=== PATIENT | male | born 1965 | race Caucasian/White ===

== ENCOUNTER 2021-12-05 13:32 | Emergency (ER) | payer MEDICARE, OTHER ==
[~2021-12-05] VITALS: Ht 177 cm; Wt 105.0 kg
[2021-12-05] MEDS ORDERED: hydrALAZINE (APESOLINE) 20 MG/ML VIAL IV STA (13:45)
--- NOTE | 2021-12-05 13:58 | ED General ---
General Chief Complaint: General Problems/Pain Stated Complaint: ELEV BP Source of Information: Patient History of Present Illness Date Seen by Provider: Dec 05, 2021 Time Seen by Provider: 13:35 Initial Comments 56 yo male presenting with complaint of feeling tired and run down for a long time but since Friday he has been taking his blood pressure. He was told he had elevated blood pressure Friday when he had injections for his spine. He continues to take his blood pressure over the weekend. He has been running 180- 220 systolic and has had a headache along with tightness in his chest. 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 He follows with a provider in [place] at [facility] with Dr. Moscoso and when he contacted them about the blood pressure elevation he was advised to come to local ED since he has had symptoms going on for several days to weeks. Severity: Mild Associated Systoms: Chest Pain (some pain Friday); No Cough, No Diaphoresis, No Fever/Chills; Headaches, Loss of Appetite, Malaise; No Nausea/V omiting, No Rash, No Seizure, No Shortness of Air, No Syncope, No Weakness Allergies and Home Medications Allergies Coded Allergies: No Known Drug Allergies (Unverified , 12/05/21) Patient Home Medication List Home Medication List Reviewed: Yes Lisinopril (Lisinopril) 20 Mg Tablet, 20 MG PO DAILY Prescribed by: MANUELA HOWARD on 12/05/21 1545 Review of Systems Review of Systems Constitutional: No chills, No diaphoresis, No dizziness, No fever; malaise EENTM: no symptoms reported Respiratory: no symptoms reported Cardiovascular: see HPI Gastrointestinal: no symptoms reported Genitourinary: no symptoms reported Musculoskeletal: back pain (chronic) Skin: No rash Psychiatric/Neurological: Headache Hematologic/Lymphatic: Denies Blood Clots Past Emrfbci-Lhdwcv-Kuslgw Hx Patient Social History Tobacco Use?: Yes Tobacco type used: Cigarettes Smoking Status: Current Everyday Smoker Use of E-Cig and/or Vaping dev: No Substance use?: No Alcohol Use?: No Past Medical History Surgery/Hospitalization HX: Hypertension, Diabetes Mellitus, DJD of spine Physical Exam Vital Signs Vital Signs - First Documented 12/05/21 12/05/21 13:46 16:14 Temp 36.7 Pulse 88 Resp 18 B/P (MAP) 198/112 (140) Pulse Ox 96 O2 Delivery Room Air Capillary Refill : Height, Weight, BMI Height: '" Weight: lbs. oz. 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 Norm as Tested Skin: Normal Color, Warm/Dry Progress/Results/Core Measures Suspected Sepsis SIRS Temperature: Pulse: Respiratory Rate: Laboratory Tests 12/05/21 14:10: White Blood Count 12.4H Blood Pressure / Mean: Laboratory Tests 12/05/21 14:10: Creatinine 1.20, INR Comment 0.9, Platelet Count 360, Total Bilirubin 0.3 Results/Orders Lab Results Laboratory Tests Test 12/05/21 14:10 Range/Units White Blood Count 12.4 H 4.3-11.0 10^3/uL Red Blood Count 4.37 4.30-5.52 10^6/uL Hemoglobin 14.0 13.3-17.7 g/dL Hematocrit 43 40-54 % Mean Corpuscular Volume 98 80-99 fL Mean Corpuscular Hemoglobin 32 25-34 pg Mean Corpuscular Hemoglobin Concent 33 32-36 g/dL Red Cell Distribution Width 14.2 10.0-14.5 % Platelet Count 360 130-400 10^3/uL Mean Platelet Volume 9.8 9.0-12.2 fL Immature Granulocyte % (Auto) 1 % Neutrophils (%) (Auto) 70 42-75 % Lymphocytes (%) (Auto) 17 12-44 % Monocytes (%) (Auto) 8 0-12 % Eosinophils (%) (Auto) 4 0-10 % Basophils (%) (Auto) 1 0-10 % Neutrophils # (Auto) 8.7 H 1.8-7.8 10^3/uL Lymphocytes # (Auto) 2.1 1.0-4.0 10^3/uL Monocytes # (Auto) 1.0 0.0-1.0 10^3/uL Eosinophils # (Auto) 0.4 H 0.0-0.3 10^3/uL Basophils # (Auto) 0.1 0.0-0.1 10^3/uL Immature Granulocyte # (Auto) 0.1 0.0-0.1 10^3/uL Prothrombin Time 12.6 12.2-14.7 SEC INR Comment 0.9 0.8-1.4 Activated Partial Thromboplast Time 28 24-35 SEC Urine Color YELLOW Urine Clarity CLEAR Urine pH 6.0 5-9 Urine Specific Bruce 1.015 L 1.016-1.022 Urine Protein NEGATIVE NEGATIVE Urine Glucose (UA) NEGATIVE NEGATIVE Urine Ketones TRACE H NEGATIVE Urine Nitrite NEGATIVE NEGATIVE Urine Bilirubin NEGATIVE NEGATIVE Urine Urobilinogen 0.2 < = 1.0 MG/DL Urine Leukocyte Esterase NEGATIVE NEGATIVE Urine RBC (Auto) NEGATIVE NEGATIVE Urine RBC RARE /HPF Urine WBC RARE /HPF Urine Squamous Epithelial Cells RARE /HPF Urine Crystals NONE /LPF Urine Bacteria NEGATIVE /HPF Urine Casts PRESENT /LPF Urine Hyaline Casts 5-10 H /LPF Urine Mucus SMALL H /LPF Urine Culture Indicated NO Sodium Level 136 135-145 MMOL/L Potassium Level 5.0 3.6-5.0 MMOL/L Chloride Level 98 98-107 MMOL/L Carbon Dioxide Level 24 21-32 MMOL/L Anion Gap 14 5-14 MMOL/L Blood Urea Nitrogen 17 7-18 MG/DL Creatinine 1.20 0.60-1.30 MG/DL Estimat Glomerular Filtration Rate 72 BUN/Creatinine Ratio 14 Glucose Level 135 H 70-105 MG/DL Calcium Level 9.5 8.5-10.1 MG/DL Corrected Calcium 8.5-10.1 MG/DL Magnesium Level 2.4 1.6-2.4 MG/DL Total Bilirubin 0.3 0.1-1.0 MG/DL Aspartate Amino Transf (AST/SGOT) 19 5-34 U/L Alanine Aminotransferase (ALT/SGPT) 12 0-55 U/L Alkaline Phosphatase 79 40-136 U/L Myoglobin 32.6 10.0-92.0 NG/ML Troponin I < 0.30 <0.30 NG/ML Pro-B-Type Natriuretic Peptide 81.7 H <75.0 PG/ML Total Protein 7.8 6.4-8.2 GM/DL Albumin 4.7 H 3.2-4.5 GM/DL Lipase 30 8-78 U/L My Orders Orders - MANUELA HOWARD MD Cbc With Automated Diff (12/05/21 13:45) Magnesium (12/05/21 13:45) Chest 1 View Ap/Pa Only (12/05/21 13:45) Ekg Tracing (12/05/21 13:45) Comprehensive Metabolic Panel (12/05/21 13:45) Myoglobin Serum (12/05/21 13:45) Protime With Inr (12/05/21 13:45) Partial Thromboplastin Time (12/05/21 13:45) O2 (12/05/21 13:45) Monitor-Rhythm Ecg Trace Only (12/05/21 13:45) Ed Iv/Invasive Line Start (12/05/21 13:45) Lipase (12/05/21 13:45) Troponin I Fs (12/05/21 13:45) Probnp Fs (12/05/21 13:45) Ct Head Wo (12/05/21 13:45) Hydralazine Injection (Apresoline Inject (12/05/21 13:45) Ua Culture If Indicated (12/05/21 13:45) Vital Signs/I&O 12/05/21 12/05/21 13:46 16:14 Temp 36.7 Pulse 88 89 Resp 18 16 B/P (MAP) 198/112 (140) 154/80 Pulse Ox 96 O2 Delivery Room Air Room Air Capillary Refill : Progress Note #1: Progress Note check basic labs and ECG to look at heart and kidneys, CT scan of head for headache with elevated blood pressure, cardiac enzymes, UA. Give Hydralazine to see about lowering blood pressure Progress Note #2: Progress Note Labs appear stable other than mild elevation of his white blood cell count. His creatinine is slightly elevated at 1.2. He has no acute significant abnormality on his chest x-ray or CT scan of his head. His electrocardiogram did not show acute ischemia. His troponin was less than 0.3. He had improved blood pressure with the single dose of hydralazine and was feeling better. Call placed to Dr. Arminda Moscoso at [facility] to try and see if there was something specific she would want to do for his blood pressure management at home. She was in rooms seeing patients so I was unable to speak with her but I discussed the case and my plan with her staff. Will fax notes and information to the office for Dr. Moscoso to be able to review and see if she wants to do something different. I advised the patient to increase his Lisinopril to 20 mg a day and he could use the Lisinopril 10 mg pills taking 2 a day instead of picking up the new script. See what Dr. Moscoso wants to do to help manage his pressures. When reviewing results with pt he admits he has had increased pain recently and also has had increased stress. I advised him that both of those certainly could cause an increase in his blood pressures. There is a lot of different factors that could be playing a role but currently his heart test and looking for a stroke or acute organ failure were all negative. ECG Initial ECG Impression Date: Dec 05, 2021 Initial ECG Impression Time: 14:17 Initial ECG Rate: 80 Initial ECG Rhythm: Normal Sinus Initial ECG Comparisson: No Previous ECG Available Comment Normal sinus rhythm with a heart rate of 80 bpm. WI interval 181 ms. Right bundle branch block with a left anterior fascicular block. Lateral Q waves in V5, V6, 1 and aVL. QT interval 390 ms with a QTc interval [address] elevation. No prior tracing available for comparison. Diagnostic Imaging Diagonstic Imaging: CT Plain Films/CT/US/NM/MRI: head Comments [facility] [place] NAME: KAROLINA ADORNO [facility] REC#: [id number] PT STATUS: REG ER : 1965 PHYSICIAN: MANUELA HOWARD MD ADMIT DATE: 12/05/21/ER FS Draft Date of Exam:12/05/21 CT HEAD WO PROCEDURE: CT head without contrast. TECHNIQUE: Multiple contiguous axial images were obtained through the brain without the use of intravenous contrast. Auto Exposure Controls were utilized during the CT exam to meet ALARA standards for radiation dose reduction. INDICATION: Headache and hypertension. No prior head CTs are available for comparison. The ventricles and sulci are within normal limits. No sulcal effacement or midline shift is identified. No acute intra-axial or extra-axial hemorrhage is detected. Cisterns are patent. Visualized paranasal sinuses are clear. IMPRESSION: No acute intracranial process is detected. Dictated on workstation # [id number] Dict: 12/05/21 1428 Trans: 12/05/21 1431 [facility] [id number] Interpreted by: MAXIMINO LOPEZ MD Electronically signed by: Reviewed: Reviewed by Me Diagonstic Imaging: Xray Plain Films/CT/US/NM/MRI: chest Comments [facility] [place] NAME: KAROLINA ADORNO [facility] REC#: [id number] PT STATUS: REG ER : 1965 PHYSICIAN: MANUELA HOWARD MD ADMIT DATE: 12/05/21/ER FS Draft Date of Exam:12/05/21 CHEST 1 VIEW AP/PA ONLY INDICATION: Hypertension Portable AP view of the chest is obtained. There is no previous study for comparison. Overall heart size and pulmonary vascularity are within normal limits. There appear to be nonacute bilateral rib fractures. There is no consolidation, pneumothorax or significant pleural fluid seen. IMPRESSION: Irregular appearance of bilateral ribs indicating old trauma however no acute abnormality is seen. Dictated on workstation # [id number] Dict: 12/05/21 1406 Trans: 12/05/21 1408 [facility] [id number] Interpreted by: BATSHEVA GARCIA MD Electronically signed by: Reviewed: Reviewed by Me Departure Impression Primary Impression: Elevated blood pressure reading with diagnosis of hypertension Disposition: 01 HOME, SELF-CARE Condition: Stable Departure-Patient Inst. Decision time for Depature: 15:30 Referrals: NO,LOCAL PHYSICIAN (PCP/Family) Primary Care Physician Patient Instructions: High Blood Pressure ED, DASH Diet, Heart Healthy Diet Add. Discharge Instructions: Increase your Lisinopril to 20 mg a day for now and check with your doctor at least over the phone to see what they want to do with your blood pressure medicine and control of your pressures being elevated. Dr. Moscoso or her nurse will try to call you and check in about how you are doing and discuss your medicines and treatment options All discharge instructions reviewed with patient and/or family. Voiced underst anding. Scripts Lisinopril (Lisinopril) 20 Mg Tablet 20 MG PO DAILY for Blood Pressure for 30 Days, #30 TAB 0 Refills Prov: MANUELA HOWARD MD 12/05/21 MANUELA HOWARD MD Dec 05, 2021 13:58
--- NOTE | 2021-12-05 14:09 | Diagnostic Imaging Report ---
INDICATION: Hypertension Portable AP view of the chest is obtained. There is no previous study for comparison. Overall heart size and pulmonary vascularity are within normal limits. There appear to be nonacute bilateral rib fractures. There is no consolidation, pneumothorax or significant pleural fluid seen. IMPRESSION: Irregular appearance of bilateral ribs indicating old trauma however no acute abnormality is seen. Dictated by: Dictated on workstation # [id number]
[2021-12-05 14:19] LABS: BASOPHILS # (AUTO) 0.1 10^3/uL (0.0-0.1); BASOPHILS % (AUTO) 1 % (0-10); EOSINOPHILS # (AUTO) 0.4 10^3/uL (0.0-0.3); EOSINOPHILS % (AUTO) 4 % (0-10); HEMATOCRIT 43 % (40-54); LYMPHOCYTES # (AUTO) 2.1 10^3/uL (1.0-4.0); LYMPHOCYTES % (AUTO) 17 % (12-44); MEAN CORPUSCULAR HEMOGLOBIN 32 pg (25-34); MEAN CORPUSCULAR HGB CONC 33 g/dL (32-36); MEAN CORPUSCULAR VOLUME 98 fL (80-99); MEAN PLATELET VOLUME 9.8 fL (9.0-12.2); MONOCYTES % (AUTO) 8 % (0-12); NEUTROPHILS # (AUTO) 8.7 10^3/uL (1.8-7.8); NEUTROPHILS % (AUTO) 70 % (42-75); PLATELET COUNT 360 10^3/uL (130-400); WHITE BLOOD COUNT 12.4 10^3/uL (4.3-11.0)
[2021-12-05 14:20] LABS: BILIRUBIN,URINE NEGATIVE (NEGATIVE); CLARITY,URINE CLEAR; COLOR,URINE YELLOW; GLUCOSE, URINE (UA) NEGATIVE (NEGATIVE); KETONES,URINE TRACE (NEGATIVE); LEUKOCYTE ESTERASE ,URINE NEGATIVE (NEGATIVE); NITRITE,URINE NEGATIVE (NEGATIVE); PROTEIN,URINE NEGATIVE (NEGATIVE)
[2021-12-05 14:31] LABS: BACTERIA,URINE NEGATIVE /HPF; RBC,URINE RARE /HPF; WBC,URINE RARE /HPF
[2021-12-05 14:32] LABS: SQUAMOUS EPITHELIAL CELL,UR RARE /HPF
--- NOTE | 2021-12-05 14:32 | Diagnostic Imaging Report ---
PROCEDURE: CT head without contrast. TECHNIQUE: Multiple contiguous axial images were obtained through the brain without the use of intravenous contrast. Auto Exposure Controls were utilized during the CT exam to meet ALARA standards for radiation dose reduction. INDICATION: Headache and hypertension. No prior head CTs are available for comparison. The ventricles and sulci are within normal limits. No sulcal effacement or midline shift is identified. No acute intra-axial or extra-axial hemorrhage is detected. Cisterns are patent. Visualized paranasal sinuses are clear. IMPRESSION: No acute intracranial process is detected. Dictated by: Dictated on workstation # [id number]
[2021-12-05 14:33] LABS: INR 0.9 (0.8-1.4); PROTHROMBIN TIME PATIENT 12.6 SEC (12.2-14.7)
[2021-12-05 14:42] LABS: BUN/CREATININE RATIO 14; CARBON DIOXIDE 24 MMOL/L (21-32); CHLORIDE 98 MMOL/L (98-107); GFR ESTIMATED 72; GLUCOSE 135 MG/DL (70-105); SODIUM 136 MMOL/L (135-145)
[2021-12-05 14:43] LABS: ALANINE AMINOTRANSFERASE 12 U/L (0-55); ALBUMIN 4.7 GM/DL (3.2-4.5); ALKALINE PHOSPHATASE 79 U/L (40-136); BILIRUBIN,TOTAL 0.3 MG/DL (0.1-1.0); CALCIUM 9.5 MG/DL (8.5-10.1); LIPASE 30 U/L (8-78); MAGNESIUM 2.4 MG/DL (1.6-2.4); TOTAL PROTEIN 7.8 GM/DL (6.4-8.2)
[2021-12-05] MEDS ORDERED: LISI20TA26 PO (15:45)
[2021-12-05 16:14] VITALS: BP 154/80
== END 2021-12-05 16:10 | disposition home or self-care (01) ==
LOC: ER FS 13:34
DX: I10 Essential (primary) hypertension (principal); E66.9 Obesity, unspecified; E11.9 Type 2 diabetes mellitus without complications; F17.210 Nicotine dependence, cigarettes, uncomplicated
CPT/HCPCS: 36415; 70450; 71045; 80053; 81000; 83690; 83735; 83874; 83880; 84484; 85025; 85610; 85730

== ENCOUNTER 2022-06-08 16:01 | Inpatient (IN) | payer MEDICARE ==
[~2022-06-08] VITALS: Ht 177.8 cm; Wt 112.7 kg
[~2022-06-08 16:01] MED LIST: LISI20TA26 PO
[2022-06-08 16:39] LABS: BASOPHILS # (AUTO) 0.1 10^3/uL (0.0-0.1); BASOPHILS % (AUTO) 1 % (0-10); EOSINOPHILS # (AUTO) 0.3 10^3/uL (0.0-0.3); EOSINOPHILS % (AUTO) 2 % (0-10); HEMATOCRIT 35 % (40-54); HEMOGLOBIN 11.5 g/dL (13.3-17.7); LYMPHOCYTES # (AUTO) 2.1 10^3/uL (1.0-4.0); LYMPHOCYTES % (AUTO) 12 % (12-44); MEAN CORPUSCULAR HEMOGLOBIN 32 pg (25-34); MEAN CORPUSCULAR HGB CONC 33 g/dL (32-36); MEAN CORPUSCULAR VOLUME 99 fL (80-99); MEAN PLATELET VOLUME 10.1 fL (9.0-12.2); MONOCYTES # (AUTO) 1.6 10^3/uL (0.0-1.0); MONOCYTES % (AUTO) 10 % (0-12); NEUTROPHILS # (AUTO) 12.9 10^3/uL (1.8-7.8); NEUTROPHILS % (AUTO) 76 % (42-75); PLATELET COUNT 289 10^3/uL (130-400)
[2022-06-08 16:44] LABS: ALBUMIN 4.1 GM/DL (3.2-4.5); POTASSIUM 4.7 MMOL/L (3.6-5.0); PROTHROMBIN TIME PATIENT 13.3 SEC (12.2-14.7)
[2022-06-08 16:45] LABS: CALCIUM 9.3 MG/DL (8.5-10.1)
[2022-06-08] MEDS ORDERED: fentaNYL INJ 100 MCG/2 ML AMP IVP ONE (16:45)
[2022-06-08 16:47] LABS: TOTAL PROTEIN 7.3 GM/DL (6.4-8.2)
[2022-06-08 16:48] LABS: BILIRUBIN,TOTAL 0.7 MG/DL (0.1-1.0)
[2022-06-08 16:50] LABS: CREATININE SERUM 1.8 MG/DL (0.60-1.30)
[2022-06-08 16:54] LABS: BAND NEUTROPHILS 0 %; BASOPHILS % (MANUAL) 0 %; EOSINOPHILS % (MANUAL) 3 %; LYMPHOCYTES % (MANUAL) 17 %; MONOCYTES % (MANUAL) 6 %; NEUTROPHILS % (MANUAL) 74 %; RBC MORPH NORMAL
--- NOTE | 2022-06-08 16:59 | ED General ---
General Chief Complaint: General Problems/Pain Stated Complaint: LEGS SWOLLEN/BALANCE IS OFF/SPEECH SLURRED Nursing Triage Note: PT BROUGHT TO ED BY ADULT DAUGHTER FOR WEAKNESS AND SLURRED SPEACH THAT STARTED TODAY. PT HAS BEEN NOTICING MUSCLE SORENESS FOR THE LAST THREE DAY BUT HAS GOTTEN WORSE OVERTIME. DAUGHTER STATES PT HAD TIA ABOUT THREE YEARS AGO. PT REPORT HAVING HAD SOME CP YESTERDAY ON AND OFF. NO CURRENT CP AT THIS TIME. PT BROUGHT TO ROOM 02 VIA WC. PT'S DAUGHTER AT BEDSIDE. PT ALERT AND ORIENTED X'S 4. Source of Information: Patient, Family, Old Records Exam Limitations: No Limitations History of Present Illness Date Seen by Provider: Jun 08, 2022 Time Seen by Provider: 16:10 Initial Comments This 57-year-old gentleman presents to the emergency room with at least 3 days of diffuse severe myalgia and polyarthralgia, weakness, fever, and anasarca. He had something similar to this years ago when he had TIAs. He does not know of any specific diagnosis that was assigned to the condition but knows he spent 4 days in the hospital. He was admitted at [facility] for the prior episode. He does not have a local provider here as he has recently moved to the area from [place], [place]. Some additional associated symptoms are nausea, vomiting, diarrhea, mild cough, and mild shortness of air. Speech has been a little sluggish as well according to patient and family but sluggish speech is not appreciated by this observer. Patient is alert, oriented, and articulate. His myalgia and arthralgia is so intense that he requires a 3 person assist to transfer to the bed from wheelchair. Patient has a minimal history. 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 There is a subtle right-sided facial droop that is overcome when he smiles. Time of onset is unknown. He has no other focal deficits. He is presently febrile and reports a temperature of 100.6 earlier in the day. He is not aware of any tick bites. He denies any high risk sexual activity or contacts. He denies any IV drug use or use of dirty needles for tattoos or other purposes. He denies headache and there is no rash Allergies and Home Medications Allergies Coded Allergies: meperidine (Verified Allergy, Unknown, TACHYCARDIA, 06/08/22) Patient Home Medication List Home Medication List Reviewed: Yes Amlodipine Besylate (Amlodipine Besylate) 5 Mg Tablet, 5 MG PO DAILY, (Reported) Entered as Reported by: Concha Gillespie on 06/08/222313 Last Action: Edited Bupropion HCl (Bupropion Xl) 300 Mg Tab.er.24h, 300 MG PO DAILY, (Reported) Entered as Reported by: Concha Gillespie on 06/08/222313 Last Action: Edited Bupropion HCl (Bupropion Xl) 150 Mg Tab.er.24h, 150 MG PO DAILY, (Reported) Entered as Reported by: Concha Gillespie on 06/08/222313 Last Action: Edited Celecoxib (Celecoxib) 100 Mg Capsule, 100 MG PO DAILY, (Reported) Entered as Reported by: Concha Gillespie on 06/08/222313 Last Action: Edited Duloxetine HCl (Duloxetine HCl) 60 Mg Capsule.dr, 60 MG PO DAILY, (Reported) Entered as Reported by: Concha Gillespie on 06/08/222313 Last Action: Edited Gabapentin (Neurontin) 300 Mg Capsule, 1,200 MG MT TID, (Reported) Entered as Reported by: Concha Gillespie on 06/08/222313 Last Action: New Order Lisinopril (Lisinopril) 20 Mg Tablet, 20 MG PO DAILY Prescribed by: MANUELA HOWARD on 12/05/21 1545 Lisinopril (Lisinopril) 40 Mg Tablet, (Reported) Entered as Reported by: Concha Gillespie on 06/08/222313 Last Action: New Order Lisinopril (Lisinopril) 10 Mg Tablet, (Reported) Entered as Reported by: Concha Gillespie on 06/08/222313 Last Action: New Order Metformin HCl (Metformin HCl) 500 Mg Tablet, 500 MG PO BID, (Reported) Entered as Reported by: Concha Gillespie on 06/08/222313 Last Action: Edited Omeprazole Magnesium (Prilosec Otc) 20 Mg Tablet.dr, 20 MG PO DAILY, (Reported) Entered as Reported by: YECENIA VILLALTA on 8813 Last Action: New Order Oxycodone HCl (Oxycodone HCl) 15 Mg Tablet, (Reported) Entered as Reported by: Concha Gillespie on 06/08/222309 Last Action: New Order Quetiapine Fumarate (Quetiapine Fumarate) 25 Mg Tablet, 25 MG PO DAILY, (Reported) Entered as Reported by: Concha Gillespie on 06/08/222313 Last Action: Edited Timolol Maleate (Timoptic) 0.5 % Drops, 2 DROPS BID, (Reported) Entered as Reported by: Concha Gillespie on 06/08/222313 Last Action: Edited Tizanidine HCl (Tizanidine HCl) 2 Mg Tablet, 2 MG PO QID PRN for MUSCLE SPASMS, (Reported) Entered as Reported by: Concha Gillespie on 06/08/222313 Last Action: Edited Review of Systems Review of Systems Constitutional: see HPI EENTM: see HPI Respiratory: see HPI Cardiovascular: no symptoms reported Gastrointestinal: see HPI Genitourinary: no symptoms reported Musculoskeletal: see HPI Skin: no symptoms reported Psychiatric/Neurological: See HPI, Weakness Hematologic/Lymphatic: No Symptoms Reported Past Qhzjshb-Dwhwtd-Nuffxl Hx Patient Social History Tobacco Use?: No Use of E-Cig and/or Vaping dev: Yes E-Cig or Vaping type used: Nicotine Use of E-Cig and/or Vaping Haroldo: Current Everyday User Substance use?: No Alcohol Use?: No Alcohol type: Beer Alcohol Frequency: Rarely Pt feels they are or have been: No Immunizations Up To Date First/Initial COVID19 Vaccinat: 2020 Second COVID19 Vaccination Leonardo: 2020 COVID19 Vaccine Bit Gatherer: Hilosoft Past Medical History Surgery/Hospitalization HX: Hypertension, Diabetes Mellitus, DJD of spine SURGERY; 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 oz. 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 Slight right sided facial droop) Skin: normal color, warm/dry Focused Exam Lactate Level 06/08/22 16:20: Lactic Acid Level 1.18 Lactic Acid Level Progress/Results/Core Measures Suspected Sepsis SIRS Temperature: Pulse: 98 Respiratory Rate: 14 Laboratory Tests 06/08/22 16:20: White Blood Count 17.0H 06/09/22 03:42: White Blood Count 10.7 Blood Pressure 150 /77 Mean: 101 06/08/22 16:20: Lactic Acid Level 1.18 Laboratory Tests 06/08/22 16:20: Creatinine 1.80H, INR Comment 1.0, Platelet Count 289, Total Bilirubin 0.7 06/09/22 03:42: Creatinine 1.61H, Platelet Count 234, Total Bilirubin 0.5 Results/Orders Lab Results Laboratory Tests Test 06/08/22 16:20 06/08/22 17:49 06/08/22 18:20 06/08/22 19:17 Range/Units White Blood Count 17.0 H 4.3-11.0 10^3/uL Red Blood Count 3.56 L 4.30-5.52 10^6/uL Hemoglobin 11.5 L 13.3-17.7 g/dL Hematocrit 35 L 40-54 % Mean Corpuscular Volume 99 80-99 fL Mean Corpuscular Hemoglobin 32 25-34 pg Mean Corpuscular Hemoglobin Concent 33 32-36 g/dL Red Cell Distribution Width 14.5 10.0-14.5 % Platelet Count 289 130-400 10^3/uL Mean Platelet Volume 10.1 9.0-12.2 fL Immature Granulocyte % (Auto) 0 % Neutrophils (%) (Auto) 76 H 42-75 % Lymphocytes (%) (Auto) 12 12-44 % Monocytes (%) (Auto) 10 0-12 % Eosinophils (%) (Auto) 2 0-10 % Basophils (%) (Auto) 1 0-10 % Neutrophils # (Auto) 12.9 H 1.8-7.8 10^3/uL Lymphocytes # (Auto) 2.1 1.0-4.0 10^3/uL Monocytes # (Auto) 1.6 H 0.0-1.0 10^3/uL Eosinophils # (Auto) 0.3 0.0-0.3 10^3/uL Basophils # (Auto) 0.1 0.0-0.1 10^3/uL Immature Granulocyte # (Auto) 0.1 0.0-0.1 10^3/uL Neutrophils % (Manual) 74 % Lymphocytes % (Manual) 17 % Monocytes % (Manual) 6 % Eosinophils % (Manual) 3 % Basophils % (Manual) 0 % Band Neutrophils 0 % Blood Morphology Comment NORMAL Prothrombin Time 13.3 12.2-14.7 SEC INR Comment 1.0 0.8-1.4 Activated Partial Thromboplast Time 30 24-35 SEC Sodium Level 135 135-145 MMOL/L Potassium Level 4.7 3.6-5.0 MMOL/L Chloride Level 101 98-107 MMOL/L Carbon Dioxide Level 21 21-32 MMOL/L Anion Gap 13 5-14 MMOL/L Blood Urea Nitrogen 21 H 7-18 MG/DL Creatinine 1.80 H 0.60-1.30 MG/DL Estimat Glomerular Filtration Rate 44 BUN/Creatinine Ratio 12 Glucose Level 183 H 70-105 MG/DL Lactic Acid Level 1.18 0.50-2.00 MMOL/L Calcium Level 9.3 8.5-10.1 MG/DL Corrected Calcium 9.2 8.5-10.1 MG/DL Magnesium Level 2.0 1.6-2.4 MG/DL Total Bilirubin 0.7 0.1-1.0 MG/DL Aspartate Amino Transf (AST/SGOT) 14 5-34 U/L Alanine Aminotransferase (ALT/SGPT) 15 0-55 U/L Alkaline Phosphatase 62 40-136 U/L Total Creatine Kinase 260 H 30-200 U/L Myoglobin 200.7 H 10.0-92.0 NG/ML Troponin I 0.031 H 0.038 H <0.028 NG/ML C-Reactive Protein High Sensitivity 9.65 H 0.00-0.50 MG/DL B-Type Natriuretic Peptide 129.1 H <100.0 PG/ML Total Protein 7.3 6.4-8.2 GM/DL Albumin 4.1 3.2-4.5 GM/DL Thyroid Stimulating Hormone (TSH) 0.45 0.35-4.94 UIU/ML Free Thyroxine 0.93 0.70-1.48 NG/DL Influenza Type A (RT-PCR) Not Detected Not Detecte Influenza Type B (RT-PCR) Not Detected Not Detecte SARS-CoV-2 RNA (RT-PCR) Not Detected Not Detecte Urine Color YELLOW Urine Clarity CLEAR Urine pH 5.5 5-9 Urine Specific [place] 1.010 L 1.016-1.022 Urine Protein NEGATIVE NEGATIVE Urine Glucose (UA) NEGATIVE NEGATIVE Urine Ketones NEGATIVE NEGATIVE Urine Nitrite NEGATIVE NEGATIVE Urine Bilirubin NEGATIVE NEGATIVE Urine Urobilinogen 0.2 < = 1.0 MG/DL Urine Leukocyte Esterase NEGATIVE NEGATIVE Urine RBC (Auto) TRACE-I H NEGATIVE Urine RBC RARE /HPF Urine WBC NONE /HPF Urine Squamous Epithelial Cells RARE /HPF Urine Crystals NONE /LPF Urine Bacteria NEGATIVE /HPF Urine Casts NONE /LPF Urine Mucus NEGATIVE /LPF Urine Culture Indicated NO Erythrocyte Sedimentation Rate 38 H 0-30 MM/HR Test 06/08/22 19:57 06/09/22 03:42 Range/Units Uric Acid 8.4 H 2.6-7.2 MG/DL Procalcitonin 0.25 H 0.25 H <0.10 NG/ML White Blood Count 10.7 4.3-11.0 10^3/uL Red Blood Count 3.31 L 4.30-5.52 10^6/uL Hemoglobin 10.7 L 13.3-17.7 g/dL Hematocrit 34 L 40-54 % Mean Corpuscular Volume 101 H 80-99 fL Mean Corpuscular Hemoglobin 32 25-34 pg Mean Corpuscular Hemoglobin Concent 32 32-36 g/dL Red Cell Distribution Width 14.7 H 10.0-14.5 % Platelet Count 234 130-400 10^3/uL Mean Platelet Volume 10.1 9.0-12.2 fL Immature Granulocyte % (Auto) 1 % Neutrophils (%) (Auto) 62 42-75 % Lymphocytes (%) (Auto) 18 12-44 % Monocytes (%) (Auto) 15 H 0-12 % Eosinophils (%) (Auto) 4 0-10 % Basophils (%) (Auto) 1 0-10 % Neutrophils # (Auto) 6.6 1.8-7.8 10^3/uL Lymphocytes # (Auto) 2.0 1.0-4.0 10^3/uL Monocytes # (Auto) 1.6 H 0.0-1.0 10^3/uL Eosinophils # (Auto) 0.4 H 0.0-0.3 10^3/uL Basophils # (Auto) 0.1 0.0-0.1 10^3/uL Immature Granulocyte # (Auto) 0.1 0.0-0.1 10^3/uL Sodium Level 140 135-145 MMOL/L Potassium Level 4.3 3.6-5.0 MMOL/L Chloride Level 105 98-107 MMOL/L Carbon Dioxide Level 24 21-32 MMOL/L Anion Gap 11 5-14 MMOL/L Blood Urea Nitrogen 21 H 7-18 MG/DL Creatinine 1.61 H 0.60-1.30 MG/DL Estimat Glomerular Filtration Rate 50 BUN/Creatinine Ratio 13 Glucose Level 135 H 70-105 MG/DL Calcium Level 9.0 8.5-10.1 MG/DL Corrected Calcium 9.2 8.5-10.1 MG/DL Total Bilirubin 0.5 0.1-1.0 MG/DL Aspartate Amino Transf (AST/SGOT) 15 5-34 U/L Alanine Aminotransferase (ALT/SGPT) 16 0-55 U/L Alkaline Phosphatase 61 40-136 U/L Total Creatine Kinase 214 H 30-200 U/L Troponin I < 0.028 <0.028 NG/ML C-Reactive Protein High Sensitivity 15.51 H 0.00-0.50 MG/DL B-Type Natriuretic Peptide 127.7 H <100.0 PG/ML Total Protein 6.8 6.4-8.2 GM/DL Albumin 3.7 3.2-4.5 GM/DL Triglycerides Level 57 <150 MG/DL Cholesterol Level 134 < 200 MG/DL LDL Cholesterol Direct 34 1-129 MG/DL VLDL Cholesterol 11 5-40 MG/DL HDL Cholesterol 84 H 40-60 MG/DL Micro Results Microbiology 06/08/22 Blood Culture - Preliminary, Resulted No growth 06/08/22 Blood Culture - Preliminary, Resulted No growth My Orders Orders - OMID BROOKS MD Cbc With Automated Diff (06/08/22:25) Comprehensive Metabolic Panel (06/08/22:) Blood Culture (06/08/22:) Urinalysis (06/08/22) Urine Culture (06/08/22) Protime With Inr (06/08/22:) Partial Thromboplastin Time (06/08/22:) Chest 1 View, Ap/Pa Only (06/08/22:) Ed Iv/Invasive Line Start (06/08/22:25) Ed Iv/Invasive Line Start (06/08/22 16:25) Vital Signs Adult Sepsis Patie Q15M (06/08/22 16:25) O2 (06/08/22:25) Remove Rings In Anticipation O (06/08/22:25) Lactic Acid Analyzer (06/08/22:25) Bnp [place] (06/08/22 16:25) Creatine Kinase (06/08/22:) Hs C Reactive Protein (06/08/22:25) Magnesium (06/08/22 16:25) Ekg Tracing (06/08/22:25) Myoglobin Serum (06/08/22 16:25) Monitor-Rhythm Ecg Trace Only (06/08/22:) Troponin I [place] (06/08/22:25) Covid 19 Inhouse Test (06/08/22 16:25) Influenza A And B By Pcr (06/08/22 16:25) Thyroid Stimulating Hormone (06/08/22 16:25) Free T4 (Free Thyroxine) (06/08/22 16:25) Fentanyl Inj (Sublimaze Injection) (06/08/22 16:45) Ct Head Wo-R/O Stroke (06/08/22 16:34) Manual Differential (06/08/22 16:20) Troponin I [place] (06/08/22 18:20) Erythrocyte Sedimentation Rate (06/08/22 18:02) Tick Panel With Lyme Eia (06/08/22 18:13) West Nile Virus Igg & M (06/08/22 18:13) Acetaminophen Tablet (Tylenol Tablet) (06/08/22 18:30) Morphine Injection (Morphine Injection (06/08/22 19:56) Ceftriaxone 1 Gm Pre-Mix (Rocephin 1 Gm (06/08/22 20:18) Uric Acid (06/08/22 20:22) Ra Factor (Rheumatoid Factor) (06/08/22 20:22) Anti Nuclear Antibody Screen (06/08/22 20:22) Piperacillin Sodium/Tazobactam (Zosyn Vi (06/08/22 20:30) Procalcitonin (Pct) (06/08/22 20:31) Doxycycline Injection (Vibramycin Inject (06/08/22 20:45) Lipid Panel (06/09/22 06:00) Medications Given in ED Vital Signs/I&O 06/09/22 06/09/22 06/09/22 06/09/22 13:41 16:00 16:22 16:39 Temp 36.8 36.7 Pulse 97 86 84 87 Resp 65 12 B/P (MAP) 145/69 (94) 168/80 (109) 171/81 (111) 167/87 (113) Pulse Ox 99 96 96 94 O2 Delivery Room Air Room Air Room Air 06/09/22 06/09/22 16:53 16:56 Temp 36.7 Pulse 87 Resp 12 B/P (MAP) 154/89 154/89 (110) Pulse Ox 94 O2 Delivery Room Air Capillary Refill : Less Than 3 Seconds Blood Pressure Mean: 101 Progress Note : Progress Note Cardiac and septic work-ups were pursued. Patient denied any chest pain that was worse than his general myalgia and arthralgia. Troponin was minimally elevated. There was a slight increase on repeat. It is unclear if there is any significance of this minimal elevation in context of his renal failure. Although he has anasarca, his BNP is low. Due to the renal insufficiency we will run some slow IV fluids through the night. Source of infection is unknown. He is being empirically treated with Zosyn and doxycycline. Evaluation for autoimmune disorders is also being pursued with BARBI, uric acid, rheumatoid panel, etc. Echocardiogram will be obtained in the morning. Pain will be controlled with opioids. Labs will be repeated in the morning. I discussed CODE STATUS with the patient and he elects full code. ECG Initial ECG Impression Date: Jun 08, 2022 Initial ECG Impression Time: 16:38 Initial ECG Rate: 94 Initial ECG Rhythm: Normal Sinus Comment Sinus rhythm with no ST elevation or depression. Right bundle branch block and left axis deviation by automated read. Diagnostic Imaging Diagonstic Imaging: Xray Plain Films/CT/US/NM/MRI: chest Comments Chest x-ray viewed by me and report reviewed. See report below: NAME: KAROLINA ADORNO MED REC#: [id number] PT STATUS: REG ER : 1965 PHYSICIAN: OMID BROOKS MD ADMIT DATE: 06/08/22/ER Signed Date of Exam:06/08/22 CHEST 1 VIEW, AP/PA ONLY INDICATION: Dyspnea. EXAMINATION: AP view of the chest was obtained. FINDINGS: Since 12/05/2021 overall heart size and pulmonary vascularity remain within normal limits. Old right rib fractures are present. There is no evidence of pneumothorax or significant pleural fluid. IMPRESSION: No acute abnormality is detected. Dictated by: Dictated on workstation # [id number] Dict: 06/08/221704 Trans: 06/08/222020 [facility] [id number] Interpreted by: BATSHEVA GARCIA MD Electronically signed by: BATSHEVA GARCIA MD 06/08/222020 Diagonstic Imaging: CT Plain Films/CT/US/NM/MRI: head Comments NAME: KAROLINA ADORNO MED REC#: [id number] PT STATUS: REG ER : 1965 PHYSICIAN: OMID BROOKS MD ADMIT DATE: 06/08/22/ER Signed Date of Exam:06/08/22 CT HEAD WO-R/O STROKE PROCEDURE: CT head w/o r/o stroke. TECHNIQUE: Multiple contiguous axial images were obtained through the brain without the use of intravenous contrast. Auto Exposure Controls were utilized during the CT exam to meet ALARA standards for radiation dose reduction. INDICATION: Neurologic deficit. COMPARISON: 12/05/2021. CT HEAD: CT images of the head were obtained. FINDINGS: Ventricles and sulci are within normal limits for size. There is no intracranial hemorrhage identified. There is no abnormal mass effect or shift of midline structures. IMPRESSION: Unremarkable CT of the head. Dictated by: Dictated on workstation # [id number] Dict: 06/08/224 Trans: 06/08/222021 [facility] [id number] Interpreted by: BATSHEVA GARCIA MD Electronically signed by: BATSHEVA GARCIA MD 06/08/222021 Reviewed: Reviewed by Me Departure Communication (Admissions) Time/Spoke to Admitting Phy: 20:20 Dr. Don Time/Spoke to Consulting Phy: 20:25 Dr. Higgins Impression Primary Impression: Fever of unknown origin Additional Impressions: Polyarthralgia Anasarca Elevated troponin Renal insufficiency Disposition: ADMITTED INPATIENT Condition: Stable Admissions Decision to Admit Reason: Admit from ER (General) Decision to Admit/Date: Jun 08, 2022 Time/Decision to Admit Time: 20:20 Departure-Patient Inst. Referrals: NO,LOCAL PHYSICIAN (PCP/Family) Primary Care Physician OMID BROOKS MD Jun 08, 2022 16:59
--- NOTE | 2022-06-08 17:05 | Diagnostic Imaging Report ---
PROCEDURE: CT head w/o r/o stroke. TECHNIQUE: Multiple contiguous axial images were obtained through the brain without the use of intravenous contrast. Auto Exposure Controls were utilized during the CT exam to meet ALARA standards for radiation dose reduction. INDICATION: Neurologic deficit. COMPARISON: 12/05/2021. CT HEAD: CT images of the head were obtained. FINDINGS: Ventricles and sulci are within normal limits for size. There is no intracranial hemorrhage identified. There is no abnormal mass effect or shift of midline structures. IMPRESSION: Unremarkable CT of the head. Dictated by: Dictated on workstation # [id number]
--- NOTE | 2022-06-08 17:08 | Diagnostic Imaging Report ---
INDICATION: Dyspnea. EXAMINATION: AP view of the chest was obtained. FINDINGS: Since 12/05/2021 overall heart size and pulmonary vascularity remain within normal limits. Old right rib fractures are present. There is no evidence of pneumothorax or significant pleural fluid. IMPRESSION: No acute abnormality is detected. Dictated by: Dictated on workstation # [id number]
[2022-06-08 17:15] LABS: FREE T4 (FREE THYROXINE) 0.93 NG/DL (0.70-1.48)
[2022-06-08 17:54] LABS: BILIRUBIN,URINE NEGATIVE (NEGATIVE); CLARITY,URINE CLEAR; COLOR,URINE YELLOW; GLUCOSE, URINE (UA) NEGATIVE (NEGATIVE); KETONES,URINE NEGATIVE (NEGATIVE); LEUKOCYTE ESTERASE ,URINE NEGATIVE (NEGATIVE); NITRITE,URINE NEGATIVE (NEGATIVE); PH,URINE 5.5 (5-9); PROTEIN,URINE NEGATIVE (NEGATIVE)
[2022-06-08 18:02] LABS: BACTERIA,URINE NEGATIVE /HPF; RBC,URINE RARE /HPF; SQUAMOUS EPITHELIAL CELL,UR RARE /HPF
[2022-06-08] MEDS ORDERED: ACETAMINOPHEN 500 MG TAB (TYLENOL) PO ONE (18:30)
[2022-06-08] MEDS ORDERED: morphine INJ 10 MG/ML 1ML (SYR OR VIAL) IVP STA (19:56)
[2022-06-08] MEDS ORDERED: cefTRIAXone 1 GM PRE-MIX 50 ML IV STA (20:18)
[2022-06-08] MEDS ORDERED: PIPERACILLIN SODIUM/TAZOBACTAM 4.5 GM in NS (IVPB) 100 ML IV ONE (20:30)
[2022-06-08] MEDS ORDERED: DOXYCYCLINE INJECTION 100 MG in NS (IVPB) 100 ML IV ONE (20:45)
[2022-06-08] MEDS ORDERED: NS IV 1000 ML 1,000 ML ONE (21:46)
[2022-06-08 22:00] VITALS: BP 109/61
[2022-06-08] MEDS ORDERED: ONDANSETRON 4 MG/2 ML (SDV) Z0FRAN IV PRN (22:00)
[2022-06-08] MEDS: NS IV 1000 ML 1,000 ML IV SCH (22:14)
[2022-06-08] MEDS ORDERED: OXYC-525 (23:10)
[2022-06-08] MEDS ORDERED: BUPR150T24 PO (23:14)
[2022-06-08] MEDS ORDERED: [UNRECOGNIZED DRUG - CODE] (23:14)
[2022-06-08] MEDS ORDERED: LISI10TA25 (23:14)
[2022-06-08] MEDS ORDERED: CELE100C84 PO (23:14)
[2022-06-08] MEDS ORDERED: GABA300C MT (23:14)
[2022-06-08] MEDS ORDERED: QUET25TA35 PO (23:14)
[2022-06-08] MEDS ORDERED: TIZA-169 PO (23:14)
[2022-06-08] MEDS ORDERED: BUPR300T98 PO (23:14)
[2022-06-08] MEDS ORDERED: AMLO-250 PO (23:14)
[2022-06-08] MEDS ORDERED: LISI40TA9 (23:14)
[2022-06-08] MEDS ORDERED: METF-397 PO (23:14)
[2022-06-08] MEDS ORDERED: DULO60CA59 PO (23:14)
[2022-06-08] MEDS: morphine INJ 10 MG/ML 1ML (SYR OR VIAL) IV PRN (23:28)
[2022-06-08] MEDS: ACETAMINOPHEN 500 MG TAB (TYLENOL) PO SCH (23:29)
[2022-06-09] VITALS (8 sets, daily range): BP systolic 133–171; BP diastolic 61–89
[2022-06-09] MEDS: PIPERACILLIN SODIUM/TAZOBACTAM 4.5 GM in NS (IVPB) 100 ML IV SCH ×2 (03:16→12:38)
[2022-06-09 04:50] LABS: BASOPHILS # (AUTO) 0.1 10^3/uL (0.0-0.1); BASOPHILS % (AUTO) 1 % (0-10); EOSINOPHILS # (AUTO) 0.4 10^3/uL (0.0-0.3); EOSINOPHILS % (AUTO) 4 % (0-10); HEMATOCRIT 34 % (40-54); HEMOGLOBIN 10.7 g/dL (13.3-17.7); LYMPHOCYTES % (AUTO) 18 % (12-44); MEAN CORPUSCULAR HEMOGLOBIN 32 pg (25-34); MEAN CORPUSCULAR HGB CONC 32 g/dL (32-36); MEAN CORPUSCULAR VOLUME 101 fL (80-99); MEAN PLATELET VOLUME 10.1 fL (9.0-12.2); MONOCYTES # (AUTO) 1.6 10^3/uL (0.0-1.0); MONOCYTES % (AUTO) 15 % (0-12); NEUTROPHILS # (AUTO) 6.6 10^3/uL (1.8-7.8); NEUTROPHILS % (AUTO) 62 % (42-75); PLATELET COUNT 234 10^3/uL (130-400); WHITE BLOOD COUNT 10.7 10^3/uL (4.3-11.0)
[2022-06-09 05:21] LABS: ALANINE AMINOTRANSFERASE 16 U/L (0-55); ALBUMIN 3.7 GM/DL (3.2-4.5); ALKALINE PHOSPHATASE 61 U/L (40-136); BILIRUBIN,TOTAL 0.5 MG/DL (0.1-1.0); BUN/CREATININE RATIO 13; CARBON DIOXIDE 24 MMOL/L (21-32); CHLORIDE 105 MMOL/L (98-107); CHOLESTEROL 134 MG/DL (< 200); CREATINE KINASE 214 U/L (30-200); CREATININE SERUM 1.61 MG/DL (0.60-1.30); GFR ESTIMATED 50; GLUCOSE 135 MG/DL (70-105); HDL CHOLESTEROL 84 MG/DL (40-60); POTASSIUM 4.3 MMOL/L (3.6-5.0); SODIUM 140 MMOL/L (135-145); TOTAL PROTEIN 6.8 GM/DL (6.4-8.2); TRIGLYCERIDES 57 MG/DL (<150); VLDL CHOLESTEROL 11 MG/DL (5-40)
[2022-06-09] MEDS: morphine INJ 10 MG/ML 1ML (SYR OR VIAL) IV PRN (05:47)
[2022-06-09] MEDS: ACETAMINOPHEN 500 MG TAB (TYLENOL) PO SCH ×2 (05:47→12:04)
--- NOTE | 2022-06-09 07:37 | Diagnostic Imaging Report ---
EXAMINATION: Chest 1 view HISTORY: Fever COMPARISON: 06/08/2022 FINDINGS: The lungs are clear without edema or pneumonia. No pleural effusion or pneumothorax. Heart size is normal. There are old right-sided rib fractures. IMPRESSION: 1. Clear lungs. Dictated by: Dictated on workstation # [id number]
[2022-06-09] MEDS ORDERED: OMEP20TA33 PO (08:14)
[2022-06-09] MEDS ORDERED: DOXYCYCLINE INJECTION 100 MG in NS (IVPB) 100 ML IV SCH (09:00)
[2022-06-09] MEDS ORDERED: fentaNYL PATCH 50 MCG (DURAGESIC) TD SCH (09:00)
--- NOTE | 2022-06-09 09:13 | Consultation-Cardiology ---
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 Questionable history of TIA in the past. Started about 2 days ago having generalized weakness, muscle wasting, fever. Loss of appetite. Came into the emergency room and he is unable to stand on his own. Become extremely weak. Denied any chest pain but all his body hurt. All the muscle in his body are achy. No shortness of breath. No palpitation, syncope or near syncopal episode, does not recall having any tick bite. Home Medications & Allergies Allergies: Coded Allergies: meperidine (Verified Allergy, Unknown, TACHYCARDIA, 06/08/22) Home Medication List Reviewed: Yes IGO-Nkdkov-Dncwdm Hx Patient Social History Employed/Student: unemployed Smoking Status: Former Smoker Have you traveled recently?: No Alcohol Use?: Yes Past Medical History Discussed below Family Medical History Family Medical Hx Noncontributory. Review of Systems-General Review of Systems Constitutional: see HPI, fever, malaise, weakness EENTM: see HPI Respiratory: see HPI; No cough, No dyspnea on exertion, No hemoptysis, No orthopnea, No phlegm, No short of breath, No stridor, No wheezing, No other Cardiovascular: see HPI; No chest pain, No edema, No Hx of Intervention, No palpitations, No syncope, No vascular heart diseas, No other Gastrointestinal: see HPI, loss of appetite, nausea Genitourinary: no symptoms reported Musculoskeletal: see HPI, back pain, joint pain, muscle pain, muscle stiffness, muscle weakness Skin: no symptoms reported, see HPI Psychiatric/Neurological: See HPI, Weakness Reviewed Test Results Reviewed Test Results Lab Laboratory Tests Test 06/08/22 16:20 06/08/22 17:49 06/08/22 18:20 06/08/22 19:17 Range/Units White Blood Count 17.0 H 4.3-11.0 10^3/uL Red Blood Count 3.56 L 4.30-5.52 10^6/uL Hemoglobin 11.5 L 13.3-17.7 g/dL Hematocrit 35 L 40-54 % Mean Corpuscular Volume 99 80-99 fL Mean Corpuscular Hemoglobin 32 25-34 pg Mean Corpuscular Hemoglobin Concent 33 32-36 g/dL Red Cell Distribution Width 14.5 10.0-14.5 % Platelet Count 289 130-400 10^3/uL Mean Platelet Volume 10.1 9.0-12.2 fL Immature Granulocyte % (Auto) 0 % Neutrophils (%) (Auto) 76 H 42-75 % Lymphocytes (%) (Auto) 12 12-44 % Monocytes (%) (Auto) 10 0-12 % Eosinophils (%) (Auto) 2 0-10 % Basophils (%) (Auto) 1 0-10 % Neutrophils # (Auto) 12.9 H 1.8-7.8 10^3/uL Lymphocytes # (Auto) 2.1 1.0-4.0 10^3/uL Monocytes # (Auto) 1.6 H 0.0-1.0 10^3/uL Eosinophils # (Auto) 0.3 0.0-0.3 10^3/uL Basophils # (Auto) 0.1 0.0-0.1 10^3/uL Immature Granulocyte # (Auto) 0.1 0.0-0.1 10^3/uL Neutrophils % (Manual) 74 % Lymphocytes % (Manual) 17 % Monocytes % (Manual) 6 % Eosinophils % (Manual) 3 % Basophils % (Manual) 0 % Band Neutrophils 0 % Blood Morphology Comment NORMAL Prothrombin Time 13.3 12.2-14.7 SEC INR Comment 1.0 0.8-1.4 Activated Partial Thromboplast Time 30 24-35 SEC Sodium Level 135 135-145 MMOL/L Potassium Level 4.7 3.6-5.0 MMOL/L Chloride Level 101 98-107 MMOL/L Carbon Dioxide Level 21 21-32 MMOL/L Anion Gap 13 5-14 MMOL/L Blood Urea Nitrogen 21 H 7-18 MG/DL Creatinine 1.80 H 0.60-1.30 MG/DL Estimat Glomerular Filtration Rate 44 BUN/Creatinine Ratio 12 Glucose Level 183 H 70-105 MG/DL Lactic Acid Level 1.18 0.50-2.00 MMOL/L Calcium Level 9.3 8.5-10.1 MG/DL Corrected Calcium 9.2 8.5-10.1 MG/DL Magnesium Level 2.0 1.6-2.4 MG/DL Total Bilirubin 0.7 0.1-1.0 MG/DL Aspartate Amino Transf (AST/SGOT) 14 5-34 U/L Alanine Aminotransferase (ALT/SGPT) 15 0-55 U/L Alkaline Phosphatase 62 40-136 U/L Total Creatine Kinase 260 H 30-200 U/L Myoglobin 200.7 H 10.0-92.0 NG/ML Troponin I 0.031 H 0.038 H <0.028 NG/ML C-Reactive Protein High Sensitivity 9.65 H 0.00-0.50 MG/DL B-Type Natriuretic Peptide 129.1 H <100.0 PG/ML Total Protein 7.3 6.4-8.2 GM/DL Albumin 4.1 3.2-4.5 GM/DL Thyroid Stimulating Hormone (TSH) 0.45 0.35-4.94 UIU/ML Free Thyroxine 0.93 0.70-1.48 NG/DL Influenza Type A (RT-PCR) Not Detected Not Detecte Influenza Type B (RT-PCR) Not Detected Not Detecte SARS-CoV-2 RNA (RT-PCR) Not Detected Not Detecte Urine Color YELLOW Urine Clarity CLEAR Urine pH 5.5 5-9 Urine Specific [place] 1.010 L 1.016-1.022 Urine Protein NEGATIVE NEGATIVE Urine Glucose (UA) NEGATIVE NEGATIVE Urine Ketones NEGATIVE NEGATIVE Urine Nitrite NEGATIVE NEGATIVE Urine Bilirubin NEGATIVE NEGATIVE Urine Urobilinogen 0.2 < = 1.0 MG/DL Urine Leukocyte Esterase NEGATIVE NEGATIVE Urine RBC (Auto) TRACE-I H NEGATIVE Urine RBC RARE /HPF Urine WBC NONE /HPF Urine Squamous Epithelial Cells RARE /HPF Urine Crystals NONE /LPF Urine Bacteria NEGATIVE /HPF Urine Casts NONE /LPF Urine Mucus NEGATIVE /LPF Urine Culture Indicated NO Erythrocyte Sedimentation Rate 38 H 0-30 MM/HR Test 06/08/22 19:57 06/09/22 03:42 Range/Units Uric Acid 8.4 H 2.6-7.2 MG/DL Procalcitonin 0.25 H 0.25 H <0.10 NG/ML White Blood Count 10.7 4.3-11.0 10^3/uL Red Blood Count 3.31 L 4.30-5.52 10^6/uL Hemoglobin 10.7 L 13.3-17.7 g/dL Hematocrit 34 L 40-54 % Mean Corpuscular Volume 101 H 80-99 fL Mean Corpuscular Hemoglobin 32 25-34 pg Mean Corpuscular Hemoglobin Concent 32 32-36 g/dL Red Cell Distribution Width 14.7 H 10.0-14.5 % Platelet Count 234 130-400 10^3/uL Mean Platelet Volume 10.1 9.0-12.2 fL Immature Granulocyte % (Auto) 1 % Neutrophils (%) (Auto) 62 42-75 % Lymphocytes (%) (Auto) 18 12-44 % Monocytes (%) (Auto) 15 H 0-12 % Eosinophils (%) (Auto) 4 0-10 % Basophils (%) (Auto) 1 0-10 % Neutrophils # (Auto) 6.6 1.8-7.8 10^3/uL Lymphocytes # (Auto) 2.0 1.0-4.0 10^3/uL Monocytes # (Auto) 1.6 H 0.0-1.0 10^3/uL Eosinophils # (Auto) 0.4 H 0.0-0.3 10^3/uL Basophils # (Auto) 0.1 0.0-0.1 10^3/uL Immature Granulocyte # (Auto) 0.1 0.0-0.1 10^3/uL Sodium Level 140 135-145 MMOL/L Potassium Level 4.3 3.6-5.0 MMOL/L Chloride Level 105 98-107 MMOL/L Carbon Dioxide Level 24 21-32 MMOL/L Anion Gap 11 5-14 MMOL/L Blood Urea Nitrogen 21 H 7-18 MG/DL Creatinine 1.61 H 0.60-1.30 MG/DL Estimat Glomerular Filtration Rate 50 BUN/Creatinine Ratio 13 Glucose Level 135 H 70-105 MG/DL Calcium Level 9.0 8.5-10.1 MG/DL Corrected Calcium 9.2 8.5-10.1 MG/DL Total Bilirubin 0.5 0.1-1.0 MG/DL Aspartate Amino Transf (AST/SGOT) 15 5-34 U/L Alanine Aminotransferase (ALT/SGPT) 16 0-55 U/L Alkaline Phosphatase 61 40-136 U/L Total Creatine Kinase 214 H 30-200 U/L Troponin I < 0.028 <0.028 NG/ML C-Reactive Protein High Sensitivity 15.51 H 0.00-0.50 MG/DL B-Type Natriuretic Peptide 127.7 H <100.0 PG/ML Total Protein 6.8 6.4-8.2 GM/DL Albumin 3.7 3.2-4.5 GM/DL Triglycerides Level 57 <150 MG/DL Cholesterol Level 134 < 200 MG/DL LDL Cholesterol Direct 34 1-129 MG/DL VLDL Cholesterol 11 5-40 MG/DL HDL Cholesterol 84 H 40-60 MG/DL Physical Exam Physical Exam Vital Signs Vital Signs - First Documented 06/08/22 06/09/22 16:07 00:18 Temp 38.3 Pulse 98 Resp 14 B/P (MAP) 150/77 (101) Pulse Ox 98 O2 Delivery Room Air O2 Flow Rate 2.00 Capillary Refill : Less Than 3 Seconds Height, Weight, BMI Height: '" Weight: lbs. oz. 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 Slight right sided facial droop) A/P-Cardiology Admission Diagnosis Myositis Hypertension Hyperlipidemia Diabetes mellitus Assessment/Plan Mild elevation in troponin level, repeat troponin level was normal. EKG did not show any acute abnormality Continue to monitor, unlikely to be secondary to coronary event. Muscle wasting with muscle weakness, questionable myositis. Leukocytosis. Tickborne panel and autoimmune disease panel was ordered. Started empirically on antibiotic Receiving IV fluid. Diabetes mellitus, followed and managed by primary care physician Questionable history of TIA. CT of the head was negative. Blindness in the eye. Significant vision loss. Chronic. Hypertension, maintained on amlodipine and lisinopril I will hold them for now and monitor Questionable hyperlipidemia, not taking any statin. Obesity, BMI 35. ASTRID DESAI MD Jun 09, 2022 09:13
--- NOTE | 2022-06-09 10:53 | History & Physical-Hospitalist ---
History of Present Illness HPI/Chief Complaint Patient is a 57-year-old male with past medical history of chronic pain and hypertension who presented to the emergency department due to diffuse myalgias and arthralgias. He reports that his symptoms started a few days ago and have been worsening at that time. He got so weak that he could hardly walk or lift his legs so he decided to seek evaluation in the emergency department. In the emergency department he was found to have a fever which she reports is new and he has not had this at home. He states all of this developed roughly over 1 day. He also complains of some nausea vomiting and diarrhea though is uncertain if he this preceded his symptoms. He denies any other prodromal illness including cough, shortness of breath, viral symptoms, runny nose, sore throat. He denies any recent COVID infection or COVID vaccination. He denies any recent vaccination. He denies any known tick bites though he is out with his animals and has pulled ticks off of them. He is able to feed himself this m orning but he is hardly able to lift his legs off of the bed. This is similar to yesterday. Source: patient Date Seen 06/09/22 Time Seen by a Provider: 08:15 Attending Physician No,Local Physician PCP Admitting Physician: Renan Don MD Attending Physician: Renan Don MD Referring Physician Date of Admission Jun 08, 2022 at 20:37 Home Medications & Allergies Home Medications Reviewed patient Home Medication Reconciliation performed by pharmacy medication reconciliations energy and conservation technician and/or nursing. Patients Allergies have been reviewed. Allergies Allergies Coded Allergies meperidine (Verified Allergy, Unknown, TACHYCARDIA, 06/08/22) Past Srqurld-Dbnqoj-Oxavpq Hx Patient Social History Employed/Student: unemployed Tobacco Use?: No Smoking Status: Former Smoker Smokeless type used: Pouch Smokeless Tobacco Frequency: Light User Use of E-Cig and/or Vaping dev: Yes E-Cig or Vaping type used: Nicotine Use of E-Cig and/or Vaping Haroldo: Light User Substance use?: No Alcohol Use?: Yes Alcohol type: Beer Alcohol Frequency: Once in a while Pt feels they are or have been: No Immunizations Up To Date First/Initial COVID19 Vaccinat: 2020 Second COVID19 Vaccination Leonardo: 2020 Tetanus Booster (TDap): More Than 5 Years Hepatitis A: Yes Hepatitis B: Yes Current Status Advance Directives: No Communicates: Verbally Primary Language: Czech Preferred Spoken Language: Czech Is interpretation needed?: No Implanted or Applied Medical D: None Past Medical History Surgeries: Abdominal (Gastric bypass), Joint Replacement (Bilateral knees) Hypertension Arthritis Diabetes, 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) Review of Systems Constitutional: No fever; malaise, weakness EENTM: No blurred vision, No double vision, No hoarseness, No nose congestion, No nose pain Respiratory: No cough, No short of breath Cardiovascular: No chest pain; edema; No palpitations Gastrointestinal: No abdominal pain; diarrhea, nausea, vomiting Genitourinary: No dysuria, No frequency, No incontinence Musculoskeletal: joint pain; No joint swelling; muscle weakness Skin: No rash Psychiatric/Neurological: Denies Headache, Denies Numbness, Denies Paresthesia, Denies Tingling; Weakness Physical Exam Physical Exam Vital Signs Vital Signs - First Documented 06/08/22 06/09/22 16:07 00:18 Temp 38.3 Pulse 98 Resp 14 B/P (MAP) 150/77 (101) Pulse Ox 98 O2 Delivery Room Air O2 Flow Rate 2.00 Capillary Refill : Less Than 3 Seconds Height, Weight, BMI Height: '" Weight: lbs. oz. kg; 35.65 BMI Method: General Appearance: No Apparent Distress, Mild Distress (appears uncomfortable) HEENT: PERRL/EOMI, Moist Mucous Membranes; No Scleral Icterus (L), No Scleral Icterus (R) Neck: Full Range of Motion, Normal Inspection, Supple Respiratory: Lungs Clear, No Accessory Muscle Use, No Respiratory Distress Cardiovascular: Regular Rate, Rhythm, No JVD, Systolic Murmur Gastrointestinal: Normal Bowel Sounds, Non Tender, Soft Neurologic/Psychiatric: Alert, Oriented x3, Normal Mood/Affect, tour actor II-XII Norm as Tested; No Aphasia; Motor Weakness (2/5 bilateral lower extremities with hyporeflexive DTR, 4/5 upper extremities ), Other (hyporeflexive DTR) Skin: Normal Color, Warm/Dry Results Results/Procedures Labs Laboratory Tests 06/08/22 16:20 06/09/22 03:42 Patient resulted labs reviewed. Imaging [facility], [place] NAME: KAROLINA ADORNO [facility] REC#: [id number] PT STATUS: REG ER : 1965 PHYSICIAN: OMID BROOKS MD ADMIT DATE: 06/08/22/ER Signed Date of Exam:06/08/22 CHEST 1 VIEW, AP/PA ONLY INDICATION: Dyspnea. EXAMINATION: AP view of the chest was obtained. FINDINGS: Since 12/05/2021 overall heart size and pulmonary vascularity remain within normal limits. Old right rib fractures are present. There is no evidence of pneumothorax or significant pleural fluid. IMPRESSION: No acute abnormality is detected. Dictated by: Dictated on workstation # [id number] Dict: 06/08/221704 Trans: 06/08/222020 PJE [id number] Interpreted by: BATSHEVA GARCIA MD Electronically signed by: BATSHEVA GARCIA MD 06/08/222020 [facility], [place] NAME: KAROLINA ADORNO [facility] REC#: [id number] PT STATUS: REG ER : 1965 PHYSICIAN: OMID BROOKS MD ADMIT DATE: 06/08/22/ER Signed Date of Exam:06/08/22 CT HEAD WO-R/O STROKE PROCEDURE: CT head w/o r/o stroke. TECHNIQUE: Multiple contiguous axial images were obtained through the brain without the use of intravenous contrast. Auto Exposure Controls were utilized during the CT exam to meet ALARA standards for radiation dose reduction. INDICATION: Neurologic deficit. COMPARISON: 12/05/2021. CT HEAD: CT images of the head were obtained. FINDINGS: Ventricles and sulci are within normal limits for size. There is no intracranial hemorrhage identified. There is no abnormal mass effect or shift of midline structures. IMPRESSION: Unremarkable CT of the head. Dictated by: Dictated on workstation # [id number] Dict: 06/08/221703 Trans: 06/08/222021 PJE [id number] Interpreted by: BATSHEVA GARCIA MD Electronically signed by: BATSHEVA GARCIA MD 06/08/222021 Assessment/Plan Admission Diagnosis Ascending paralysis Admission Status: Inpatient Order (span 2 midnights) Reason for Inpatient Admission: see below Assessment and Plan Ascending paralysis Symptoms started in legs and spreadingupwards Concerning for Guillian [place] Syndrome I contacted [facility] to discussion transfer and they are at capacity Awaiting return call from [facility] facilities in [place] [facility] at 1100 and they are at capacity HTN BP stable, hold meds DVT ppx: SCDs only for possible LP Diagnosis/Problems Diagnosis/Problems (1) Ascending paralysis (2) Polyarthralgia Status: Acute (3) Renal insufficiency Status: Acute (4) Essential hypertension (5) Anasarca Status: Acute (6) Fever of unknown origin Status: Acute RENAN DON MD Jun 09, 2022 10:53
[2022-06-09] MEDS: NS IV 1000 ML 1,000 ML IV SCH (11:35)
[2022-06-09] MEDS ORDERED: IVIG 40 GM/400 ML (PRIVIGEN) IV ONE (14:15)
[2022-06-09] MEDS ORDERED: GABAPENTIN 600 MG (NEURONTIN) TAB PO NR (14:30)
[2022-06-09] MEDS ORDERED: IVIG 20 GM IV NR (14:30)
[2022-06-09] MEDS ORDERED: IMMUNE GLOBULIN IV SCH (15:00)
[2022-06-09] MEDS ORDERED: IMMU GLOBULIN,GAMMA 200 ML IV SCH ×2 (15:00→21:00)
[2022-06-12] MEDS ORDERED: PATCH REMOVAL TP SCH (08:59)
== END 2022-06-09 16:53 | disposition short-term general hospital (02) | DRG 96 ==
LOC: EDUNIT# 16:01 → ER 16:03 → ICU 20:37
PROVIDERS: ADMIT Family Medicine; ATTEND Family Medicine
DX: G61.0 Guillain-Barre syndrome (principal); R60.1 Generalized edema; E66.9 Obesity, unspecified; Z68.35 Body mass index [BMI] 35.0-35.9, adult; F17.290 Nicotine dependence, other tobacco product, uncomplicated; I10 Essential (primary) hypertension; E78.5 Hyperlipidemia, unspecified; H54.40 Blindness, one eye, unspecified eye; Z86.73 Personal history of transient ischemic attack (TIA), and cerebral infarction without residual deficits; Z79.84 Long term (current) use of oral hypoglycemic drugs; Z98.84 Bariatric surgery status; Z96.653 Presence of artificial knee joint, bilateral
CPT/HCPCS: 36415; 70450; 71045; 80053; 80061; 81000; 82550; 83605; 83735; 83874; 83880; 84145; 84439; 84443; 84484; 84550; 85007; 85025; 85027; 85610; 85652; 85730; 86038; 86141; 86431; 86618; 86666; 86668; 86757; 86788; 86789; 87040; 87088; 87636; 93005; 93041; 93306

== ENCOUNTER 2022-07-22 16:12 | Emergency (ER) | payer MEDICARE ==
[~2022-07-22] VITALS: Ht 177.8 cm; Wt 112.7 kg
[~2022-07-22 16:12] MED LIST changes: +AMLO-250 PO; +BUPR150T24 PO; +BUPR300T98 PO; +CELE100C84 PO; +DULO60CA59 PO; +GABA300C MT; +LISI10TA25; +LISI40TA9; +METF-397 PO; +OMEP20TA33 PO; +OXYC-525; +QUET25TA35 PO; +TIZA-169 PO; +[UNRECOGNIZED DRUG - CODE]
[2022-07-22 16:40] LABS: BASOPHILS # (AUTO) 0.1 10^3/uL (0.0-0.1); BASOPHILS % (AUTO) 1 % (0-10); EOSINOPHILS # (AUTO) 0.3 10^3/uL (0.0-0.3); EOSINOPHILS % (AUTO) 3 % (0-10); HEMATOCRIT 36 % (40-54); HEMOGLOBIN 12.6 g/dL (13.3-17.7); LYMPHOCYTES # (AUTO) 1.6 10^3/uL (1.0-4.0); LYMPHOCYTES % (AUTO) 16 % (12-44); MEAN CORPUSCULAR HEMOGLOBIN 32 pg (25-34); MEAN CORPUSCULAR HGB CONC 36 g/dL (32-36); MEAN CORPUSCULAR VOLUME 91 fL (80-99); MEAN PLATELET VOLUME 9.5 fL (9.0-12.2); MONOCYTES # (AUTO) 0.8 10^3/uL (0.0-1.0); MONOCYTES % (AUTO) 8 % (0-12); NEUTROPHILS # (AUTO) 7.3 10^3/uL (1.8-7.8); NEUTROPHILS % (AUTO) 73 % (42-75); PLATELET COUNT 382 10^3/uL (130-400); WHITE BLOOD COUNT 10.1 10^3/uL (4.3-11.0)
[2022-07-22] MEDS ORDERED: morphine INJ 10 MG/ML 1ML (SYR OR VIAL) IVP STA ×2 (16:41→18:02)
[2022-07-22] MEDS ORDERED: ONDANSETRON 4 MG/2 ML (SDV) Z0FRAN IVP ONE (16:45)
[2022-07-22] MEDS ORDERED: NS IV 1000 ML 1,000 ML IV SCH (16:45)
[2022-07-22 16:58] LABS: ALANINE AMINOTRANSFERASE 13 U/L (0-55); ALKALINE PHOSPHATASE 75 U/L (40-136); BILIRUBIN,TOTAL 0.4 MG/DL (0.1-1.0); BUN/CREATININE RATIO 9; CALCIUM 9.2 MG/DL (8.5-10.1); CARBON DIOXIDE 23 MMOL/L (21-32); CHLORIDE 90 MMOL/L (98-107); CREATININE SERUM 1.19 MG/DL (0.60-1.30); GFR ESTIMATED 72; GLUCOSE 146 MG/DL (70-105); POTASSIUM 4.4 MMOL/L (3.6-5.0)
[2022-07-22 16:59] LABS: ALBUMIN 4.4 GM/DL (3.2-4.5); TOTAL PROTEIN 7.3 GM/DL (6.4-8.2)
[2022-07-22 17:00] LABS: SODIUM 125 MMOL/L (135-145)
--- NOTE | 2022-07-22 17:58 | ED Abdominal Pain ---
General Chief Complaint: Abdominal/GI Problems Stated Complaint: N/V/D, WEAKNESS Nursing Triage Note: Patient presents to the ED via EMS with c/o nausa, vomiting, weakness. States nausea and decreased appetite x5 days with vomiting starting today. States he feels weak. Denies fever. Does report loose yellow oily stools. Source of Information: Patient Exam Limitations: No Limitations History of Present Illness Date Seen by Provider: Jul 22, 2022 Time Seen by Provider: 15:00 Initial Comments Patient is a 57-year-old male who presents for nausea vomiting and weakness. Patient reports weakness starting 1 week ago after running out of Neurontin. Nausea and vomiting started today. He has had decreased appetite and reports generalized neck back and shoulder pain after running out of oxycodone 2 days ago. No fever chills or sweats. No chest pain palpitations, shortness of breath. No abdominal pain or tenderness. No urinary frequency urgency or dysuria. No other acute symptoms or complaints. Timing/Duration: 1-3 Hours, 1 Week Severity/Quality: Mild, Other Location: Other Radiation: Other Activities at Onset: Other Modifying Factors: Improves With Other Associated Symptoms: Other Allergies and Home Medications Allergies Coded Allergies: meperidine (Verified Allergy, Unknown, TACHYCARDIA, 06/08/22) Patient Home Medication List Home Medication List Reviewed: Yes Amlodipine Besylate (Amlodipine Besylate) 5 Mg Tablet, 5 MG PO DAILY, (Reported) Entered as Reported by: Concha Gillespie on 06/08/222313 Bupropion HCl (Bupropion Xl) 300 Mg Tab.er.24h, 300 MG PO DAILY, (Reported) Entered as Reported by: Concha Gillespie on 06/08/222313 Bupropion HCl (Bupropion Xl) 150 Mg Tab.er.24h, 150 MG PO DAILY, (Reported) Entered as Reported by: Concha Gillespie on 06/08/222313 Celecoxib (Celecoxib) 100 Mg Capsule, 100 MG PO DAILY, (Reported) Entered as Reported by: Concha Gillespie on 06/08/222313 Duloxetine HCl (Duloxetine HCl) 60 Mg Capsule.dr, 60 MG PO DAILY, (Reported) Entered as Reported by: Concha Gillespie on 06/08/222313 Gabapentin (Neurontin) 300 Mg Capsule, 1,200 MG MT TID, (Reported) Entered as Reported by: Concha Gillespie on 06/08/222313 Lisinopril (Lisinopril) 20 Mg Tablet, 20 MG PO DAILY Prescribed by: MANUELA HOWARD on 12/05/21 1545 Lisinopril (Lisinopril) 40 Mg Tablet, (Reported) Entered as Reported by: Concha Gillespie on 06/08/222313 Lisinopril (Lisinopril) 10 Mg Tablet, (Reported) Entered as Reported by: Concha Gillespie on 06/08/222313 Metformin HCl (Metformin HCl) 500 Mg Tablet, 500 MG PO BID, (Reported) Entered as Reported by: Concha Gillespie on 06/08/222313 Omeprazole Magnesium (Prilosec Otc) 20 Mg Tablet.dr, 20 MG PO DAILY, (Reported) Entered as Reported by: YECENIA VILLALTA on 06/09/22 0814 Ondansetron (Ondansetron Odt) 8 Mg Tab.rapdis, 8 MG PO Q6H Prescribed by: JAJA JOSEPH on 07/22/221852 Oxycodone HCl (Oxycodone HCl) 15 Mg Tablet, (Reported) Entered as Reported by: Concha Gillespie on 06/08/222309 Prochlorperazine Maleate (Compazine) 10 Mg Tablet, 10 MG PO Q12H PRN for NAUSEA- 1ST LINE Prescribed by: JAJA JOSEPH on 07/22/221852 Quetiapine Fumarate (Quetiapine Fumarate) 25 Mg Tablet, 25 MG PO DAILY, (Reported) Entered as Reported by: Concha Gillespie on 06/08/222313 Timolol Maleate (Timoptic) 0.5 % Drops, 2 DROPS BID, (Reported) Entered as Reported by: Concha Gillespie on 06/08/222313 Tizanidine HCl (Tizanidine HCl) 2 Mg Tablet, 2 MG PO QID PRN for MUSCLE SPASMS, (Reported) Entered as Reported by: Concha Gillespie on 06/08/222313 Review of Systems Review of Systems Constitutional: see HPI EENTM: See HPI Respiratory: See HPI Cardiovascular: See HPI Gastrointestinal: See HPI Genitourinary: See HPI Musculoskeletal: see HPI Skin: see HPI Psychiatric/Neurological: See HPI Endocrine: See HPI Hematologic/Lymphatic: See HPI All Other Systems Reviewed Negative Unless Noted: No Past Lqaonnm-Hkfwlj-Itahjj Hx Patient Social History Tobacco Use?: No Use of E-Cig and/or Vaping dev: No Substance use?: No Alcohol Use?: Yes Alcohol Frequency: Rarely Pt feels they are or have been: No Immunizations Up To Date First/Initial COVID19 Vaccinat: 2020 Second COVID19 Vaccination Leonardo: 2020 Third COVID19 Vaccination Date: 2020 Past Medical History Surgery/Hospitalization HX: Hypertension, Diabetes Mellitus, Neuropathy, DJD of spine SURGERY; 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 oz. 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, no motor/sensory deficits, alert, normal mood/affect, oriented x 3 Focused Exam Sepsis Stage: Ruled Out Progress/Results/Core Measures Results/Orders Lab Results Laboratory Tests Test 07/22/22 16:17 07/22/22 17:40 Range/Units White Blood Count 10.1 4.3-11.0 10^3/uL Red Blood Count 3.90 L 4.30-5.52 10^6/uL Hemoglobin 12.6 L 13.3-17.7 g/dL Hematocrit 36 L 40-54 % Mean Corpuscular Volume 91 80-99 fL Mean Corpuscular Hemoglobin 32 25-34 pg Mean Corpuscular Hemoglobin Concent 36 32-36 g/dL Red Cell Distribution Width 12.6 10.0-14.5 % Platelet Count 382 130-400 10^3/uL Mean Platelet Volume 9.5 9.0-12.2 fL Immature Granulocyte % (Auto) 0 % Neutrophils (%) (Auto) 73 42-75 % Lymphocytes (%) (Auto) 16 12-44 % Monocytes (%) (Auto) 8 0-12 % Eosinophils (%) (Auto) 3 0-10 % Basophils (%) (Auto) 1 0-10 % Neutrophils # (Auto) 7.3 1.8-7.8 10^3/uL Lymphocytes # (Auto) 1.6 1.0-4.0 10^3/uL Monocytes # (Auto) 0.8 0.0-1.0 10^3/uL Eosinophils # (Auto) 0.3 0.0-0.3 10^3/uL Basophils # (Auto) 0.1 0.0-0.1 10^3/uL Immature Granulocyte # (Auto) 0.0 0.0-0.1 10^3/uL Sodium Level 125 *L 135-145 MMOL/L Potassium Level 4.4 3.6-5.0 MMOL/L Chloride Level 90 L 98-107 MMOL/L Carbon Dioxide Level 23 21-32 MMOL/L Anion Gap 12 5-14 MMOL/L Blood Urea Nitrogen 11 7-18 MG/DL Creatinine 1.19 0.60-1.30 MG/DL Estimat Glomerular Filtration Rate 72 BUN/Creatinine Ratio 9 Glucose Level 146 H 70-105 MG/DL Calcium Level 9.2 8.5-10.1 MG/DL Corrected Calcium 8.9 8.5-10.1 MG/DL Total Bilirubin 0.4 0.1-1.0 MG/DL Aspartate Amino Transf (AST/SGOT) 20 5-34 U/L Alanine Aminotransferase (ALT/SGPT) 13 0-55 U/L Alkaline Phosphatase 75 40-136 U/L Troponin I < 0.30 <0.30 NG/ML Total Protein 7.3 6.4-8.2 GM/DL Albumin 4.4 3.2-4.5 GM/DL Urine Color YELLOW Urine Clarity CLEAR Urine pH 5.5 5-9 Urine Specific [place] 1.010 L 1.016-1.022 Urine Protein NEGATIVE NEGATIVE Urine Glucose (UA) NEGATIVE NEGATIVE Urine Ketones 1+ H NEGATIVE Urine Nitrite NEGATIVE NEGATIVE Urine Bilirubin NEGATIVE NEGATIVE Urine Urobilinogen 0.2 < = 1.0 MG/DL Urine Leukocyte Esterase NEGATIVE NEGATIVE Urine RBC (Auto) NEGATIVE NEGATIVE Urine RBC 0-2 /HPF Urine WBC 0-2 /HPF Urine Squamous Epithelial Cells 0-2 /HPF Urine Crystals PRESENT H /LPF Urine Amorphous Sediment FEW EDD URATES H /LPF Urine Bacteria NEGATIVE /HPF Urine Casts NONE /LPF Urine Mucus SMALL H /LPF Urine Culture Indicated NO My Orders Orders - JAJA JOSEPH DO Cbc With Automated Diff (07/22/22 16:31) Comprehensive Metabolic Panel (07/22/22 16:31) Troponin I Fs (07/22/22 16:31) Ondansetron Injection (Zofran Injectio (07/22/22 16:45) Ns Iv 1000 Ml (Sodium Chloride 0.9%) (07/22/22 16:45) Ekg Tracing (07/22/22 16:31) Morphine Injection (Morphine Injection (07/22/22 16:41) Urinalysis (07/22/22 17:53) Morphine Injection (Morphine Injection (07/22/22 18:02) Prochlorperazine Injection (Compazine In (07/22/22 18:15) Ketorolac Injection (Toradol Injection) (07/22/22 18:15) Medications Given in ED Current Medications Medications Dose Ordered Sig/Jaiden Route Start Time Stop Time Status Last Admin Dose Admin Ketorolac Tromethamine 30 mg ONCE ONCE IVP 07/22/22 18:15 07/22/22 18:16 DC 07/22/22 18:13 30 MG Ondansetron HCl 4 mg ONCE ONCE IVP 07/22/22 16:45 07/22/22 16:46 DC 07/22/22 16:46 4 MG Prochlorperazine Edisylate 10 mg ONCE ONCE IV 07/22/22 18:15 07/22/22 18:16 DC 07/22/22 18:13 10 MG Vital Signs/I&O 07/22/22 16:23 Temp 36.6 Pulse 88 Resp 16 B/P (MAP) 166/81 (109) Pulse Ox 97 O2 Delivery Room Air Blood Pressure Mean: 109 Departure Communication (Admissions) EKG: Normal sinus rhythm, no acute ST-T wave changes. Generalized weakness nausea and vomiting with history of hyponatremia in the setting of acute narcotic withdrawal. Patient given IV fluids morphine and Zofran with clinical improvement. No abdominal pain/tenderness. Patient able to tolerate oral intake in the ED. Will treat supportively refill home medications and have follow-up with PCP to coordinate additional outpatient testing and treatment. Return precautions reviewed. Patient verbalizes understanding agreement with discharge instructions prior to departure. Impression Primary Impression: Nausea and vomiting Additional Impression: Hyponatremia Disposition: HOME, SELF-CARE Condition: Stable Departure-Patient Inst. Decision time for Depature: 18:51 Referrals: NO,LOCAL PHYSICIAN (PCP/Family) Primary Care Physician Patient Instructions: Hyponatremia, Nausea and Vomiting, Adult (DC) Add. Discharge Instructions: You were evaluated in the emergency department for nausea and vomiting generalized weakness. Please go home and rest, take nausea medication as directed. Drink clear liquids with soft mechanical diet and resume home medications. Follow-up with your PCP tomorrow for reevaluation and to recheck sodium level. Return to the ED if new or worsening symptoms All discharge instructions reviewed with patient and/or family. Voiced understanding. Scripts Gabapentin (Neurontin) 600 Mg Tablet 1200 MG PO TID, #180 TAB Prov: JAJA JOSEPH DO 07/22/22 Prochlorperazine Maleate (Compazine) 10 Mg Tablet 10 MG PO Q12H PRN for NAUSEA-1ST LINE, #10 TAB Prov: JAJA JOSEPH DO 07/22/22 Ondansetron (Ondansetron Odt) 8 Mg Tab.rapdis 8 MG PO Q6H, #20 TAB Prov: JAJA JOSEPH DO 07/22/22 JAJA JOSEPH DO Jul 22, 2022 17:58
[2022-07-22 18:05] LABS: BILIRUBIN,URINE NEGATIVE (NEGATIVE); CLARITY,URINE CLEAR; COLOR,URINE YELLOW; GLUCOSE, URINE (UA) NEGATIVE (NEGATIVE); KETONES,URINE 1+ (NEGATIVE); LEUKOCYTE ESTERASE ,URINE NEGATIVE (NEGATIVE); NITRITE,URINE NEGATIVE (NEGATIVE); PH,URINE 5.5 (5-9); PROTEIN,URINE NEGATIVE (NEGATIVE)
[2022-07-22 18:11] LABS: AMORPHOUS SEDIMENT,UR FEW AMOR URATES /LPF; BACTERIA,URINE NEGATIVE /HPF; RBC,URINE 0-2 /HPF; SQUAMOUS EPITHELIAL CELL,UR 0-2 /HPF; WBC,URINE 0-2 /HPF
[2022-07-22] MEDS ORDERED: KETOROLAC 30 MG/ML VIAL IVP ONE (18:15)
[2022-07-22] MEDS ORDERED: PROCHLORPERAZINE 10 MG/2ML INJ (COMPAZINE) IV ONE (18:15)
[2022-07-22] MEDS ORDERED: ONDA8TAB13 PO (18:53)
[2022-07-22] MEDS ORDERED: PROC-1 PO (18:53)
[2022-07-22] MEDS ORDERED: GABA600T PO (18:55)
[2022-07-22 19:08] VITALS: BP 152/85
== END 2022-07-22 19:09 | disposition home or self-care (01) ==
LOC: EDUNIT# 16:12 → ER FS 16:13
DX: E87.1 Hypo-osmolality and hyponatremia (principal); Z91.14 Patient's other noncompliance with medication regimen
CPT/HCPCS: 36415; 80053; 81000; 84484; 85025; 93005

== ENCOUNTER → 2022-08-02 | Outpatient (CLI) | payer MEDICARE ==
[~2022-08-02] MED LIST changes: +GABA600T PO; +ONDA8TAB13 PO; +PROC-1 PO
[2022-08-02 09:55] LABS: BASOPHILS # (AUTO) 0.1 10^3/uL (0.0-0.1); BASOPHILS % (AUTO) 1 % (0-10); EOSINOPHILS # (AUTO) 0.4 10^3/uL (0.0-0.3); EOSINOPHILS % (AUTO) 5 % (0-10); HEMATOCRIT 35 % (40-54); LYMPHOCYTES # (AUTO) 1.8 10^3/uL (1.0-4.0); LYMPHOCYTES % (AUTO) 19 % (12-44); MEAN CORPUSCULAR HEMOGLOBIN 32 pg (25-34); MEAN CORPUSCULAR HGB CONC 34 g/dL (32-36); MEAN CORPUSCULAR VOLUME 94 fL (80-99); MEAN PLATELET VOLUME 9.5 fL (9.0-12.2); MONOCYTES # (AUTO) 0.6 10^3/uL (0.0-1.0); MONOCYTES % (AUTO) 7 % (0-12); NEUTROPHILS # (AUTO) 6.3 10^3/uL (1.8-7.8); NEUTROPHILS % (AUTO) 68 % (42-75); PLATELET COUNT 259 10^3/uL (130-400); WHITE BLOOD COUNT 9.4 10^3/uL (4.3-11.0)
[2022-08-02 10:25] LABS: ALBUMIN 4.3 GM/DL (3.2-4.5); BILIRUBIN,TOTAL 0.2 MG/DL (0.1-1.0); CALCIUM 9.4 MG/DL (8.5-10.1); CREATININE SERUM 1.37 MG/DL (0.60-1.30); TOTAL PROTEIN 7.1 GM/DL (6.4-8.2)
== END ==
LOC: LAB FS 09:39
PROVIDERS: ATTEND Nurse Practitioner Family
DX: E87.1 Hypo-osmolality and hyponatremia (principal)
CPT/HCPCS: 36415; 80053; 85025

== ENCOUNTER 2022-08-11 09:41 | Inpatient (IN) | payer MEDICARE ==
[~2022-08-11] VITALS: Ht 177.8 cm; Wt 108.0 kg
[~2022-08-11 09:41] MED LIST changes: -OXYC-525; +OXYC-525 PO; -[UNRECOGNIZED DRUG - CODE]; +[UNRECOGNIZED DRUG - CODE] OU
[2022-08-11 10:01] LABS: BASOPHILS # (AUTO) 0.1 10^3/uL (0.0-0.1); BASOPHILS % (AUTO) 1 % (0-10); EOSINOPHILS # (AUTO) 0.1 10^3/uL (0.0-0.3); EOSINOPHILS % (AUTO) 1 % (0-10); HEMATOCRIT 32 % (40-54); HEMOGLOBIN 10.9 g/dL (13.3-17.7); LYMPHOCYTES # (AUTO) 0.6 10^3/uL (1.0-4.0); LYMPHOCYTES % (AUTO) 5 % (12-44); MEAN CORPUSCULAR HEMOGLOBIN 33 pg (25-34); MEAN CORPUSCULAR HGB CONC 34 g/dL (32-36); MEAN CORPUSCULAR VOLUME 96 fL (80-99); MEAN PLATELET VOLUME 9.6 fL (9.0-12.2); MONOCYTES # (AUTO) 1.1 10^3/uL (0.0-1.0); MONOCYTES % (AUTO) 9 % (0-12); NEUTROPHILS % (AUTO) 84 % (42-75); PLATELET COUNT 241 10^3/uL (130-400); WHITE BLOOD COUNT 11.9 10^3/uL (4.3-11.0)
--- NOTE | 2022-08-11 10:06 | ED General ---
General Chief Complaint: Altered Mental Status Stated Complaint: GENERAL WEAKNESS History of Present Illness Date Seen by Provider: Aug 11, 2022 Time Seen by Provider: 10:00 Initial Comments 57-year-old male with history of diabetes presents to the ER by ambulance. States his daughter is coming in. She is the one who told him to call. He states that he has been having more trouble with balance and has fallen multiple times over the past 2 days. He is normally seen in the [facility] care. He states he does see neurology but he is very difficult to get history from. Patient will kind his own off or fall asleep while asking questions. Patient does not think he is on a pain medication. Patient is not smoking. Patient does just that he is not feeling well. Did fall and land on his knees. Denies any lung issues. No cough no shortness of breath. No chest pain. Nausea no vomiting no abdominal pain. No pain with urination. Does not think he hit his head when he fell. He is complaining of bilateral knee pain where he fell on those this morning. Allergies and Home Medications Allergies Coded Allergies: meperidine (Verified Allergy, Unknown, TACHYCARDIA, 06/08/22) Patient Home Medication List Home Medication List Reviewed: Yes Amlodipine Besylate (Amlodipine Besylate) 5 Mg Tablet, 5 MG PO DAILY, (Reported) Entered as Reported by: Concha Gillespie on 06/08/222313 Bupropion HCl (Bupropion Xl) 300 Mg Tab.er.24h, 300 MG PO DAILY, (Reported) Entered as Reported by: Concha Gillespie on 06/08/222313 Bupropion HCl (Bupropion Xl) 150 Mg Tab.er.24h, 150 MG PO DAILY, (Reported) Entered as Reported by: Concha Gillespie on 06/08/222313 Celecoxib (Celecoxib) 100 Mg Capsule, 100 MG PO DAILY, (Reported) Entered as Reported by: Concha Gillespie on 06/08/222313 Duloxetine HCl (Duloxetine HCl) 60 Mg Capsule.dr, 60 MG PO DAILY, (Reported) Entered as Reported by: Concha Gillespie on 06/08/222313 Gabapentin (Neurontin) 300 Mg Capsule, 1,200 MG MT TID, (Reported) Entered as Reported by: Concha Gillespie on 06/08/222313 Gabapentin (Neurontin) 600 Mg Tablet, 1,200 MG PO TID Prescribed by: JAJA JOSEPH on 07/22/221854 Lisinopril (Lisinopril) 20 Mg Tablet, 20 MG PO DAILY Prescribed by: MANUELA HOWARD on 12/05/21 1545 Lisinopril (Lisinopril) 40 Mg Tablet, (Reported) Entered as Reported by: Concha Gillespie on 06/08/222313 Lisinopril (Lisinopril) 10 Mg Tablet, (Reported) Entered as Reported by: Concha Gillespie on 06/08/222313 Metformin HCl (Metformin HCl) 500 Mg Tablet, 500 MG PO BID, (Reported) Entered as Reported by: Concha Gillespie on 06/08/222313 Omeprazole Magnesium (Prilosec Otc) 20 Mg Tablet.dr, 20 MG PO DAILY, (Reported) Entered as Reported by: YECENIA VILLALTA on 06/09/2214 Ondansetron (Ondansetron Odt) 8 Mg Tab.rapdis, 8 MG PO Q6H Prescribed by: JAJA JOSEPH on 07/22/221852 Oxycodone HCl (Oxycodone HCl) 15 Mg Tablet, (Reported) Entered as Reported by: Concha Gillespie on 06/08/222309 Prochlorperazine Maleate (Compazine) 10 Mg Tablet, 10 MG PO Q12H PRN for NAUSEA- 1ST LINE Prescribed by: JAJA JOSEPH on 07/22/221852 Quetiapine Fumarate (Quetiapine Fumarate) 25 Mg Tablet, 25 MG PO DAILY, (Reported) Entered as Reported by: Concha Gillespie on 06/08/222313 Timolol Maleate (Timoptic) 0.5 % Drops, 2 DROPS BID, (Reported) Entered as Reported by: Concha Gillespie on 06/08/222313 Tizanidine HCl (Tizanidine HCl) 2 Mg Tablet, 2 MG PO QID PRN for MUSCLE SPASMS, (Reported) Entered as Reported by: Concha Gillespie on 06/08/222313 Review of Systems Review of Systems Constitutional: see HPI Past Lvvzuyo-Hzajzb-Jbesua Hx Patient Social History Tobacco Use?: No Immunizations Up To Date First/Initial COVID19 Vaccinat: 2020 Second COVID19 Vaccination Leonardo: 2020 Third COVID19 Vaccination Date: 2020 Past Medical History Surgery/Hospitalization HX: Hypertension, Diabetes Mellitus, Neuropathy, DJD of spine SURGERY; 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 oz. kg; 35.00 BMI Method: General Appearance: WD/WN, Mild Distress Eyes: Bilateral Eye PERRL, Bilateral Eye EOMI HEENT: TMs Normal, Normal ENT Inspection, Pharynx Normal, Moist Mucous Membranes Neck: Full Range of Motion, Normal Inspection Respiratory: Chest Non Tender, Lungs Clear Cardiovascular: Regular Rate, Rhythm, No Edema Gastrointestinal: Normal Bowel Sounds, Non Tender, Soft Neurologic/Psychiatric: Other (Patient answers questions but will sometimes doze midsentence. ) Progress/Results/Core Measures Suspected Sepsis SIRS Temperature: Pulse: Respiratory Rate: Laboratory Tests 08/11/22 09:40: White Blood Count 11.9H Blood Pressure / Mean: Laboratory Tests 08/11/22 09:40: Creatinine 1.31H, Platelet Count 241, Total Bilirubin 0.3 Results/Orders Lab Results Laboratory Tests Test 08/11/22 09:40 08/11/22 10:13 Range/Units White Blood Count 11.9 H 4.3-11.0 10^3/uL Red Blood Count 3.33 L 4.30-5.52 10^6/uL Hemoglobin 10.9 L 13.3-17.7 g/dL Hematocrit 32 L 40-54 % Mean Corpuscular Volume 96 80-99 fL Mean Corpuscular Hemoglobin 33 25-34 pg Mean Corpuscular Hemoglobin Concent 34 32-36 g/dL Red Cell Distribution Width 13.3 10.0-14.5 % Platelet Count 241 130-400 10^3/uL Mean Platelet Volume 9.6 9.0-12.2 fL Immature Granulocyte % (Auto) 0 % Neutrophils (%) (Auto) 84 H 42-75 % Lymphocytes (%) (Auto) 5 L 12-44 % Monocytes (%) (Auto) 9 0-12 % Eosinophils (%) (Auto) 1 0-10 % Basophils (%) (Auto) 1 0-10 % Neutrophils # (Auto) 10.0 H 1.8-7.8 10^3/uL Lymphocytes # (Auto) 0.6 L 1.0-4.0 10^3/uL Monocytes # (Auto) 1.1 H 0.0-1.0 10^3/uL Eosinophils # (Auto) 0.1 0.0-0.3 10^3/uL Basophils # (Auto) 0.1 0.0-0.1 10^3/uL Immature Granulocyte # (Auto) 0.0 0.0-0.1 10^3/uL Neutrophils % (Manual) 92 % Lymphocytes % (Manual) 6 % Monocytes % (Manual) 2 % Sodium Level 132 L 135-145 MMOL/L Potassium Level 5.6 H 3.6-5.0 MMOL/L Chloride Level 95 L 98-107 MMOL/L Carbon Dioxide Level 29 21-32 MMOL/L Anion Gap 8 5-14 MMOL/L Blood Urea Nitrogen 20 H 7-18 MG/DL Creatinine 1.31 H 0.60-1.30 MG/DL Estimat Glomerular Filtration Rate 64 BUN/Creatinine Ratio 15 Glucose Level 210 H 70-105 MG/DL Calcium Level 8.9 8.5-10.1 MG/DL Corrected Calcium 9.1 8.5-10.1 MG/DL Total Bilirubin 0.3 0.1-1.0 MG/DL Aspartate Amino Transf (AST/SGOT) 17 5-34 U/L Alanine Aminotransferase (ALT/SGPT) 16 0-55 U/L Alkaline Phosphatase 83 40-136 U/L Total Protein 6.5 6.4-8.2 GM/DL Albumin 3.7 3.2-4.5 GM/DL Urine Color YELLOW Urine Clarity CLEAR Urine pH 6.5 5-9 Urine Specific Durant 1.015 L 1.016-1.022 Urine Protein NEGATIVE NEGATIVE Urine Glucose (UA) 1+ H NEGATIVE Urine Ketones NEGATIVE NEGATIVE Urine Nitrite NEGATIVE NEGATIVE Urine Bilirubin NEGATIVE NEGATIVE Urine Urobilinogen 0.2 < = 1.0 MG/DL Urine Leukocyte Esterase NEGATIVE NEGATIVE Urine RBC (Auto) NEGATIVE NEGATIVE Urine RBC 2-5 H /HPF Urine WBC NONE /HPF Urine Crystals NONE /LPF Urine Bacteria NEGATIVE /HPF Urine Casts NONE /LPF Urine Mucus NEGATIVE /LPF Urine Culture Indicated NO Urine Opiates Screen NEGATIVE NEGATIVE Urine Oxycodone Screen POSITIVE H NEGATIVE Urine Methadone Screen NEGATIVE NEGATIVE Urine Propoxyphene Screen NEGATIVE NEGATIVE Urine Barbiturates Screen POSITIVE H NEGATIVE Ur Tricyclic Antidepressants Screen NEGATIVE NEGATIVE Urine Phencyclidine Screen NEGATIVE NEGATIVE Urine Amphetamines Screen NEGATIVE NEGATIVE Urine Methamphetamines Screen NEGATIVE NEGATIVE Urine Benzodiazepines Screen NEGATIVE NEGATIVE Urine Cocaine Screen NEGATIVE NEGATIVE Urine Cannabinoids Screen POSITIVE H NEGATIVE My Orders Orders - ALESSANDRO NATION MD Cbc And Manual Diff (08/11/22 09:56) Comprehensive Metabolic Panel (08/11/22 09:56) Urinalysis (08/11/22 09:56) Drug Screen Stat (Urine) (08/11/22 09:56) Knee 2 View Bilateral (08/11/22 09:56) Ct Head Wo (08/11/22 09:56) Pelvis/Nuria Hips 2 View (08/11/22 10:06) Ns Iv 1000 Ml (Sodium Chloride 0.9%) (08/11/22 11:00) Chest 1 View Ap/Pa Only (08/11/22 12:33) Oxycodone/Apap 5/325mg Tablet (Percocet (08/11/22 14:30) Medications Given in ED Current Medications Medications Dose Ordered Sig/Jaiden Route Start Time Stop Time Status Last Admin Dose Admin Oxycodone/ Acetaminophen 1 tab ONCE ONCE PO 08/11/22 14:30 08/11/22 14:31 DC 08/11/22 15:01 1 TAB Sodium Chloride 1,000 ml @ 100 mls/hr Q10H ONCE IV 08/11/22 11:00 08/11/22 20:59 08/11/22 11:14 100 MLS/HR Vital Signs/I&O 08/11/22 09:42 Temp 36.5 Pulse 97 Resp 16 B/P (MAP) 163/92 (115) Pulse Ox 94 O2 Delivery Room Air Capillary Refill : Progress Note #1: Time: 10:56 Progress Note labs reviewed. slightly low sodium. slightly high potassium. will start IV fluids. Progress Note #2: Time: 12:37 Progress Note Daughters in the room now. States he was admitted for the very same or very similar symptoms about a month ago or back in May. He went to [facility]. Was then transferred to [place]. They recommended inpatient PT but he was back to his normal self before then so they went home. Patient does have elevated slightly elevated white count with 84% neutrophils. We will get an x-ray. Progress Note #3: Time: 14:45 Progress Note Called and spoke to Dr. Byrnes who recommended I get records and find out if they need neurology or not. She states she can take them if he does not need neurology but if he does he would need to be transferred. I did call [facility] and they transferred me to medical records and I left a message. I was by an hour ago. I just really engaged with them and spoke with Sae on the phone who is going to call and give us a call back. Diagnostic Imaging Diagonstic Imaging: CT Comments NAME: KAROLINA ADORNO Jim MED REC#: [id number] PT STATUS: REG ER : 1965 PHYSICIAN: ALESSANDRO NATION MD ADMIT DATE: 08/11/22/ER FS Signed Date of Exam:08/11/22 CT HEAD WO PROCEDURE: CT head without contrast. TECHNIQUE: Multiple contiguous axial images were obtained through the brain without the use of intravenous contrast. Auto Exposure Controls were utilized during the CT exam to meet ALARA standards for radiation dose reduction. DATE: August 11, 2022. COMPARISON: CT head without contrast June 08, 2022. INDICATION: 57-year-old male, falls. Headache. FINDINGS: There is no identified skull fracture. The ventricles and cerebral spinal fluid spaces are of normal size and configuration for the patient's age. There is no mass effect or midline shift. There is no acute intracranial hemorrhage. There is no abnormal extra-axial fluid collection. The visualized portions of the paranasal sinuses, mastoid air cells and middle ears are well aerated. IMPRESSION: No identified acute intracranial abnormality. Dictated by: Dictated on workstation # [id number] Dict: 08/11/22 1041 Trans: 08/11/22 1121 [id number] Interpreted by: RTEV MONGE MD Electronically signed by: TREV MONGE MD 08/11/22 1121 Diagonstic Imaging: Xray Comments NAME: KAROLINA ADORNO MED REC#: [id number] PT STATUS: REG ER : 1965 PHYSICIAN: ALESSANDRO NATION MD ADMIT DATE: 08/11/22/ER FS Signed Date of Exam:08/11/22 CHEST 1 VIEW AP/PA ONLY EXAMINATION: Chest radiograph, portable AP view. DATE: 08/11/2022 12:45 PM. INDICATION: 57-year-old male, elevated white blood cell count. Cough. COMPARISON: June 09, 2022. FINDINGS: The heart size and mediastinal contours are unchanged. There is no identified pneumothorax. There is no large pleural effusion. There are chronic appearing right rib deformities. There is no identified focal airspace consolidation. There are technical limitations of the study relating to patient body habitus and difficulties with exposure. IMPRESSION: No identified acute cardiopulmonary abnormality. Dictated by: Dictated on workstation # [id number] Dict: 08/11/22 1245 Trans: 08/11/22 1325 [id number] Interpreted by: TREV MONGE MD Electronically signed by: TREV MONGE MD 08/11/22 1325 Diagonstic Imaging: Xray Comments LEONOR: KAROLINA ADORNO MED REC#: [id number] PT STATUS: REG ER : 1965 PHYSICIAN: ALESSANDRO NATION MD ADMIT DATE: 08/11/22/ER FS Signed Date of Exam:08/11/22 PELVIS/NURIA HIPS 2 VIEW EXAMINATION: Pelvis, single view. Right hip, 2 additional views. Left hip, 2 additional views. COMPARISON: None. HISTORY: 57-year-old male, falls. Bilateral hip pain. FINDINGS: There is chondrocalcinosis. The pubic symphysis and sacroiliac joints are normally aligned. The hips are not dislocated. There is no identified acute fracture. There are facet degenerative changes bilaterally at L5-S1. IMPRESSION: No identified acute bony abnormality of the pelvis or either hip. Dictated by: Dictated on workstation # [id number] Dict: 08/11/22 1043 Trans: 08/11/22 1121 [id number] Interpreted by: TREV MONGE MD Electronically signed by: TREV MONGE MD 08/11/22 1121 Diagonstic Imaging: Xray Comments NAME: KAROLINA ADORNO [facility] REC#: [id number] PT STATUS: REG ER : 1965 PHYSICIAN: ALESSANDRO NATION MD ADMIT DATE: 08/11/22/ER FS Signed Date of Exam:08/11/22 KNEE 2 VIEW BILATERAL CLINICAL HISTORY: Fall. Bilateral knee pain. COMPARISON: None. TECHNIQUE: 4 views of the bilateral knees. FINDINGS: There is no acute fracture or dislocation of the bilateral knees. Prior bilateral total knee arthroplasty changes are visualized. No periprosthetic fracture or loosening. Small bilateral joint effusions are seen. No focal osseous lesions. IMPRESSION: 1. No acute fracture or dislocation in the bilateral knees. 2. Bilateral prior total knee arthroplasties. No periprosthetic fracture or loosening. 3. Bilateral small joint effusions in the knees. Dictated by: Dictated on workstation # [id number] Dict: 08/11/22 1041 Trans: 08/11/22 1057 [id number] Interpreted by: ELINOR LAKHANI DO Electronically signed by: ELINOR LAKHANI DO 08/11/22 1057 Departure Communication (Admissions) Time/Spoke to Admitting Phy: 16:[address] Byrnes and reviewed records from previous admission 2 months ago. Patient to be admitted for cervical spine stenosis and generalized weakness Impression Primary Impression: Generalized weakness Additional Impression: Cervical spinal stenosis Disposition: 30 STILL A PATIENT Condition: Stable Admissions Decision to Admit Reason: Admit from ER (General) Decision to Admit/Date: Aug 11, 2022 Time/Decision to Admit Time: 16:45 Transfer Transfer Reason: Exceeds level of care Time Spoke to Accepting Phy: 16:55 Transfer Progress Notes Spoke with Dr. Byrnes who accepts patient in transfer for generalized weakness and cervical spine stenosis. Transfer Time: 17:02 Transfer Facility: via [facility] Method of Transfer: EMS Departure-Patient Inst. Referrals: JU KRAMER APRN (PCP) Primary Care Physician [facility] (Family) Primary Care Physician Patient Instructions: Generalized Weakness Add. Discharge Instructions: As per discharge from your inpatient admission All discharge instructions reviewed with patient and/or family. Voiced understanding. ALESSANDRO NATION MD Aug 11, 2022 10:06
[2022-08-11 10:16] LABS: ALBUMIN 3.7 GM/DL (3.2-4.5); BILIRUBIN,TOTAL 0.3 MG/DL (0.1-1.0); CALCIUM 8.9 MG/DL (8.5-10.1); CREATININE SERUM 1.31 MG/DL (0.60-1.30); POTASSIUM 5.6 MMOL/L (3.6-5.0); TOTAL PROTEIN 6.5 GM/DL (6.4-8.2)
[2022-08-11 10:20] LABS: BILIRUBIN,URINE NEGATIVE (NEGATIVE); CLARITY,URINE CLEAR; COLOR,URINE YELLOW; GLUCOSE, URINE (UA) 1+ (NEGATIVE); KETONES,URINE NEGATIVE (NEGATIVE); LEUKOCYTE ESTERASE ,URINE NEGATIVE (NEGATIVE); NITRITE,URINE NEGATIVE (NEGATIVE); PH,URINE 6.5 (5-9); PROTEIN,URINE NEGATIVE (NEGATIVE)
[2022-08-11 10:27] LABS: BACTERIA,URINE NEGATIVE /HPF
[2022-08-11 10:36] LABS: LYMPHOCYTES % (MANUAL) 6 %; MONOCYTES % (MANUAL) 2 %; NEUTROPHILS % (MANUAL) 92 %
[2022-08-11 10:45] LABS: AMPHETAMINE SCREEN, URINE NEGATIVE (NEGATIVE); BARBITURATE SCREEN URINE POSITIVE (NEGATIVE); BENZODIAZEPINES SCREEN URINE NEGATIVE (NEGATIVE); CANNABINOID SCREEN, URINE POSITIVE (NEGATIVE); COCAINE SCREEN URINE NEGATIVE (NEGATIVE); METHADONE STAT NEGATIVE (NEGATIVE); OPIATE SCREEN URINE NEGATIVE (NEGATIVE); OXYCODONE STAT POSITIVE (NEGATIVE); PROPOXYPHENE STAT NEGATIVE (NEGATIVE); TRICYCLIC ANTIDEPRESSANTS SCRE NEGATIVE (NEGATIVE)
--- NOTE | 2022-08-11 10:47 | Diagnostic Imaging Report ---
CLINICAL HISTORY: Fall. Bilateral knee pain. COMPARISON: None. TECHNIQUE: 4 views of the bilateral knees. FINDINGS: There is no acute fracture or dislocation of the bilateral knees. Prior bilateral total knee arthroplasty changes are visualized. No periprosthetic fracture or loosening. Small bilateral joint effusions are seen. No focal osseous lesions. IMPRESSION: 1. No acute fracture or dislocation in the bilateral knees. 2. Bilateral prior total knee arthroplasties. No periprosthetic fracture or loosening. 3. Bilateral small joint effusions in the knees. Dictated by: Dictated on workstation # [id number]
[2022-08-11] MEDS ORDERED: NS IV 1000 ML 1,000 ML IV ONE (11:00)
--- NOTE | 2022-08-11 11:05 | Diagnostic Imaging Report ---
PROCEDURE: CT head without contrast. TECHNIQUE: Multiple contiguous axial images were obtained through the brain without the use of intravenous contrast. Auto Exposure Controls were utilized during the CT exam to meet ALARA standards for radiation dose reduction. DATE: August 11, 2022. COMPARISON: CT head without contrast June 08, 2022. INDICATION: 57-year-old male, falls. Headache. FINDINGS: There is no identified skull fracture. The ventricles and cerebral spinal fluid spaces are of normal size and configuration for the patient's age. There is no mass effect or midline shift. There is no acute intracranial hemorrhage. There is no abnormal extra-axial fluid collection. The visualized portions of the paranasal sinuses, mastoid air cells and middle ears are well aerated. IMPRESSION: No identified acute intracranial abnormality. Dictated by: Dictated on workstation # [id number]
--- NOTE | 2022-08-11 11:07 | Diagnostic Imaging Report ---
EXAMINATION: Pelvis, single view. Right hip, 2 additional views. Left hip, 2 additional views. COMPARISON: None. HISTORY: 57-year-old male, falls. Bilateral hip pain. FINDINGS: There is chondrocalcinosis. The pubic symphysis and sacroiliac joints are normally aligned. The hips are not dislocated. There is no identified acute fracture. There are facet degenerative changes bilaterally at L5-S1. IMPRESSION: No identified acute bony abnormality of the pelvis or either hip. Dictated by: Dictated on workstation # [id number]
--- NOTE | 2022-08-11 12:47 | Diagnostic Imaging Report ---
EXAMINATION: Chest radiograph, portable AP view. DATE: 08/11/2022 12:45 PM. INDICATION: 57-year-old male, elevated white blood cell count. Cough. COMPARISON: June 09, 2022. FINDINGS: The heart size and mediastinal contours are unchanged. There is no identified pneumothorax. There is no large pleural effusion. There are chronic appearing right rib deformities. There is no identified focal airspace consolidation. There are technical limitations of the study relating to patient body habitus and difficulties with exposure. IMPRESSION: No identified acute cardiopulmonary abnormality. Dictated by: Dictated on workstation # [id number]
[2022-08-11] MEDS ORDERED: oxyCODONE/APAP 5/325MG (PERCOCET 5) TABLET PO ONE (14:30)
[2022-08-11] MEDS ORDERED: BISACODYL 10 MG SUPP (DULCOLAX) PR PRN (19:30)
[2022-08-11] MEDS ORDERED: polyethylene glycoL POWDER 17 GM (MIRALAX) PACK PO PRN (19:30)
[2022-08-11] MEDS ORDERED: ONDANSETRON 4 MG (ZOFRAN) ORAL DISSOLVE TAB PO PRN (19:30)
[2022-08-11] MEDS ORDERED: MELATONIN 3 MG TABLET PO PRN (19:30)
[2022-08-11] MEDS ORDERED: diphenhydrAMINE 50 MG/ML INJ (BENADRYL) IVP PRN (19:30)
[2022-08-11] MEDS ORDERED: ONDANSETRON 4 MG/2 ML (SDV) Z0FRAN IV PRN (19:30)
[2022-08-11] MEDS ORDERED: ANTACID SUSP 30 ML UDC (MYLANTA) PO PRN (19:30)
[2022-08-11] MEDS ORDERED: LORazepam 0.5 MG (ATIVAN) TABLET PO PRN (19:30)
[2022-08-11] MEDS ORDERED: ACETAMINOPHEN 325 MG TABLET PO PRN (19:30)
[2022-08-11] MEDS ORDERED: diphenhydrAMINE 25 MG TAB (BENADRYL) PO PRN (19:30)
[2022-08-11] MEDS: NS IV 1000 ML 1,000 ML IV SCH (19:36)
[2022-08-11 20:00] VITALS: BP 179/84
[2022-08-11] MEDS ORDERED: amLODIPine 5 MG (NORVASC) TAB PO ONE (20:15)
[2022-08-11] MEDS: ENOXAPARIN 40 MG/0.4 ML (LOVENOX) SYR SC SCH (21:22)
[2022-08-11] MEDS: DOCUSATE SODIUM 100 MG (COLACE) CAP PO SCH (21:22)
[2022-08-11] MEDS: HYDROmorphone 2 MG/ML VIAL (DILAUDID) IV PRN (23:13)
[2022-08-11] MEDS: cloNIDine 0.1 MG (CATAPRES) TAB PO PRN (23:32)
[2022-08-12] VITALS (8 sets, daily range): BP systolic 139–178; BP diastolic 66–97
[2022-08-12] MEDS: HYDROmorphone 2 MG/ML VIAL (DILAUDID) IV PRN ×4 (02:36→16:29)
[2022-08-12] MEDS: NS IV 1000 ML 1,000 ML IV SCH (05:07)
[2022-08-12 05:45] LABS: BASOPHILS # (AUTO) 0.1 10^3/uL (0.0-0.1); BASOPHILS % (AUTO) 1 % (0-10); EOSINOPHILS # (AUTO) 0.1 10^3/uL (0.0-0.3); EOSINOPHILS % (AUTO) 1 % (0-10); HEMATOCRIT 29 % (40-54); HEMOGLOBIN 9.6 g/dL (13.3-17.7); LYMPHOCYTES # (AUTO) 1.1 10^3/uL (1.0-4.0); LYMPHOCYTES % (AUTO) 10 % (12-44); MEAN CORPUSCULAR HEMOGLOBIN 32 pg (25-34); MEAN CORPUSCULAR HGB CONC 33 g/dL (32-36); MEAN CORPUSCULAR VOLUME 96 fL (80-99); MEAN PLATELET VOLUME 9.4 fL (9.0-12.2); MONOCYTES # (AUTO) 1.2 10^3/uL (0.0-1.0); MONOCYTES % (AUTO) 11 % (0-12); NEUTROPHILS # (AUTO) 8.1 10^3/uL (1.8-7.8); NEUTROPHILS % (AUTO) 76 % (42-75); PLATELET COUNT 247 10^3/uL (130-400); WHITE BLOOD COUNT 10.6 10^3/uL (4.3-11.0)
[2022-08-12 06:13] LABS: ALBUMIN 3.4 GM/DL (3.2-4.5); POTASSIUM 4.6 MMOL/L (3.6-5.0)
[2022-08-12 06:15] LABS: CALCIUM 8.7 MG/DL (8.5-10.1)
[2022-08-12 06:16] LABS: TOTAL PROTEIN 6.1 GM/DL (6.4-8.2)
[2022-08-12 06:18] LABS: BILIRUBIN,TOTAL 0.5 MG/DL (0.1-1.0)
[2022-08-12 06:20] LABS: CREATININE SERUM 1.03 MG/DL (0.60-1.30)
[2022-08-12] MEDS ORDERED: FLU QUADRIvalent (6 months+) 60 mcg/0.5 ml 2022-23 (Fluzone) IM ONE (07:00)
[2022-08-12] MEDS: amLODIPine 5 MG (NORVASC) TAB PO SCH (08:08)
[2022-08-12] MEDS: DOCUSATE SODIUM 100 MG (COLACE) CAP PO SCH ×2 (08:08→20:01)
[2022-08-12] MEDS ORDERED: SODIUM CHLORIDE 1 GM TABLET PO ONE (09:45)
--- NOTE | 2022-08-12 10:29 | History & Physical-Hospitalist ---
GABY BOWLING 08/12/22 1029: History of Present Illness HPI/Chief Complaint CC: weakness, recent falls, and headache with history of cervical spinal stenos is HPI: Generalized weakness over the past few months, primarily in his legs. He had been up to [facility] about 1 month ago where he was found to have cervical spinal stenosis. He has a follow up scheduled with a Neurosurgeon on 08/24/22 back at [facility]. He states over the past month he has fallen about 5 times, mostly recently on Friday. He denies hitting his head or losing consciousness during this most recent fall. But his weakness is severely limiting his ability to be mobile. Additionally he is feeling more confused today than usual. Source: patient Exam Limitations: no limitations Date Seen 08/12/22 Time Seen by a Provider: 09:35 Attending Physician Felicita Bergeron Aprn PCP Admitting Physician: Kira Cooney DO Attending Physician: Kira Cooney DO Referring Physician Date of Admission Aug 11, 2022 at 18:50 Home Medications & Allergies Home Medications Reviewed patient Home Medication Reconciliation performed by pharmacy medication reconciliations senior qc technician and/or nursing. Patients Allergies have been reviewed. Allergies Allergies Coded Allergies meperidine (Verified Allergy, Unknown, TACHYCARDIA, 06/08/22) Past Czajcly-Oxucjq-Fvakqz Hx Patient Social History Living Status: Lives with his daughter Tobacco Use?: No Smoking Status: Former Smoker (quit in 2010, smoked 1 ppd for ~20 years) Smokeless Tobacco Frequency: Never a User Use of E-Cig and/or Vaping dev: Yes E-Cig or Vaping type used: Marijuana, CBD, Synthetic Cannabinoids Use of E-Cig and/or Vaping Haroldo: Current Everyday User Substance use?: Yes Substance type: Marijuana Substance frequency: Couple times a week Alcohol Use?: No Pt feels they are or have been: No Immunizations Up To Date First/Initial COVID19 Vaccinat: 2020 Second COVID19 Vaccination Leonardo: 2020 Tetanus Booster (TDap): More Than 5 Years Hepatitis A: Yes Hepatitis B: Yes Current Status Advance Directives: Unable to obtain Communicates: Verbally Primary Language: Tristanian Preferred Spoken Language: Tristanian Is interpretation needed?: No Sensory deficits: Vision impairment Implanted or Applied Medical D: Orthopedic hardware Past Medical History Surgeries: Abdominal, Joint Replacement Hypertension Arthritis Diabetes, Non-Insulin dep Family Medical History Diabetes (mother) Review of Systems Constitutional: dizziness, other (slightly confused) EENTM: no symptoms reported Respiratory: no symptoms reported Cardiovascular: no symptoms reported Gastrointestinal: no symptoms reported Genitourinary: no symptoms reported Musculoskeletal: joint pain (knee pain), muscle weakness (bilateral lower extremity weakness) Skin: no symptoms reported Psychiatric/Neurological: Tingling (bilateral lower extremity tingling) All Other Systems Reviewed Negative Unless Noted: Yes Physical Exam Physical Exam Vital Signs Vital Signs - First Documented 08/11/22 08/11/22 08/12/22 09:42 19:30 00:18 Temp 36.5 Pulse 97 Resp 16 B/P (MAP) 163/92 (115) Pulse Ox 94 O2 Delivery Room Air O2 Flow Rate 3.00 FiO2 21 Capillary Refill : Less Than 3 Seconds Height, Weight, BMI Height: '" Weight: lbs. oz. kg; 34.16 BMI Method: General Appearance: No Apparent Distress, WD/WN HEENT: PERRL/EOMI Neck: Normal Inspection Respiratory: Chest Non Tender, Lungs Clear, Normal Breath Sounds, No Accessory Muscle Use, No Respiratory Distress Cardiovascular: Regular Rate, Rhythm, No Gallop, No JVD, No Murmur, Normal Peripheral Pulses Gastrointestinal: Normal Bowel Sounds, No Organomegaly, No Pulsatile Mass, Non Tender, Soft Rectal: Deferred Back: Normal Inspection Extremity: Normal Capillary Refill, Normal Inspection, Swelling (2+ pitting edema) Neurologic/Psychiatric: Alert, Oriented x3, Normal Mood/Affect, Motor Weakness (UE strength intact 5/5, LE strength 1/5 hip flexion, 2/5 plantar flexion, 4/5 dorsiflexion ) Skin: Normal Color, Warm/Dry Results Results/Procedures Labs Laboratory Tests 08/11/22 09:40 08/12/22 05:38 Patient resulted labs reviewed. Imaging: Reviewed Imaging Films, Reviewed Imaging Report Imaging Head CT 08/11/22: IMPRESSION: No identified acute intracranial abnormality. Bilateral Knee Xray 08/11/22: IMPRESSION: 1. No acute fracture or dislocation in the bilateral knees. 2. Bilateral prior total knee arthroplasties. No periprosthetic fracture or loosening. 3. Bilateral small joint effusions in the knees. Bilateral pelvis/hip xray 08/11/22: IMPRESSION: No identified acute bony abnormality of the pelvis or either hip. Chest Xray 08/11/22: IMPRESSION: No identified acute cardiopulmonary abnormality. OUTSIDE IMAGING REPORTS MRI Brain 06/10/22: 1. Few small patchy elnia of T2 whte matter hyperintensity in the periventricular and subcortical white matter likley related to chronic microvascular injury. 2. No acute intracranial process. MRI C Spine 06/10/22: 1. Severe degenerative changes noted in the mid to lower cervical spine with multilevel moderate to severe spinal stenosis, most prominent at C6-C7 level. 2. Cord flattening, probably cord gliosis/edema at C6-C7. 3. Marrow edema/abnormal signal noted at several levels in the the cervical spine from C3 through C7. Would favor discogenic marrow changes; however, infection or neoplasm not completely excluded. MRI Thoracic spine 06/10/22: 1. Mild sponylosis and disc bulging at several levels in the mid to lower thoracic spine. No level with disc herniation or spinal stenosis is noted. 2. Heterogenous marrow signal in thoracic spine with focal T10 vertebral body lesion noted. CT Thoracic spine w/out contrast 06/11/22: 1. No destructive bone lesion is visible in the T10 vertebral body where an indeterminate area of abnormal signal is identified on recent MRI of thoracic spine. Assessment/Plan Admission Diagnosis Weakness and hx of falls in setting of cervical spinal stenosis Admission Status: Inpatient Order (span 2 midnights) Reason for Inpatient Admission: Generalized weakness due to cervical spinal stenosis Assessment and Plan Assessment: Mr. Garland Solano is a 57 y/o M with PMH of chronic pain, HTN, and cervical spinal stenosis who presented to the hospital on 08/10/22 for generalized weakness, falls, and headache likely due to his known cervical spin al stenosis. Plan: 1. Generalized weakness due to Cervical spinal stenosis of C6-C7. - Outside imaging results faxed over and review. (see imaging for reports) - Initial neurology consultation faxed over, but post-imaging note not faxed over yet. - Bilateral lower extremities weakness > bilateral upper extremities weakness - pt has follow up with Neurosurgery on 08/24/22 to assess surgical candidacy > PT/OT > Cont Gabapentin 1200mg TID > Cont Dilaudid 0.5mg IV q2 hr PRN > Cont Oxy 10mg q4 hr PRN 2. Confusion likely secondary to Hyponatremia > Fluid restriction > Sodium chloride 1gm tab BID > Consider Urine Na workup if continues to have hyponatremia 3. Constipation - last bowel movement 2 days ago, typically is regular > Cont Docusate 100mg BID 4. Hx of HTN > Cont amlopidine 5mg > Cont Clonidine 0.1 mg q4 PRN Dispo: will likely need placement at nursing facility until can be seen for neurosurgery consultation Diet: regular diet DVT PPX: Lovenox Code: Full code KIRA COONEY DO 08/13/22 0514: History of Present Illness HPI/Chief Complaint CC: Weakness HPI: This is a 57yoWM clinic patient of [facility] who was admitted from [facility] due to severe weakness and limitations that have been progressive for the past 2 months. Transfer to [facility] revealed no evidence of any neuro progressive disease on cervical spine stenosis which will be evaluated by NSG referral on 08/24. Source: patient Exam Limitations: no limitations Past Jrzkimi-Oqboil-Fpvmjf Hx Patient Social History Marrital Status: single Employed/Student: unemployed Smoking Status: Former Smoker (quit in 2010, smoked 1 ppd for ~20 years) Past Medical History High Cholesterol, Hypertension Neuropathy Anxiety, Depression Review of Systems Constitutional: see HPI, dizziness, weakness Physical Exam Physical Exam General Appearance: No Apparent Distress, Anxious, Chronically ill Eyes: Right Eye Normal Inspection, Right Eye PERRL HEENT: PERRL/EOMI, Normal ENT Inspection, Pharynx Normal, Moist Mucous Membranes Neck: Full Range of Motion, Normal Inspection, Non Tender Respiratory: Chest Non Tender, Lungs Clear, Normal Breath Sounds, No Accessory Muscle Use, No Respiratory Distress Cardiovascular: Regular Rate, Rhythm, No Edema, No Gallop, No JVD, No Murmur, Normal Peripheral Pulses Gastrointestinal: Normal Bowel Sounds, No Organomegaly, No Pulsatile Mass, Non Tender, Soft Back: Normal Inspection, No CVA Tenderness, No Vertebral Tenderness Extremity: Normal Capillary Refill, Normal Inspection, Normal Range of Motion, Non Tender, No Calf Tenderness, No Pedal Edema Neurologic/Psychiatric: Alert, Oriented x3, Normal Mood/Affect, cook boat II-XII Norm as Tested, Abnormal Gait, Motor Weakness (UE strength intact 5/5, LE strength 1/5 hip flexion, 2/5 plantar flexion, 4/5 dorsiflexion ) Skin: Normal Color, Warm/Dry Lymphatic: No Adenopathy Assessment/Plan Admission Diagnosis Assessment: Severe weakness Cervical spine stenosis Chronic debility Depression Anxiety Neuropathy Obesity Fall risk Plan: PT OT ARU eval Review [facility] records Admission Status: Inpatient Order (span 2 midnights) Reason for Inpatient Admission: severe weakness can't take care of self Supervisory-Addendum Brief Verification & Attestation Participated in pt care: history, MDM, physical Personally performed: exam, history, MDM, supervision of care Care discussed with: Medical Student Procedures: n/a Results interpretation: Verified all documentation Verification and Attestation of Medical Student E/M Service A medical student performed and documented this service in my presence. I reviewed and verified all information documented by the medical student and made modifications to such information, when appropriate. I personally performed the physical exam and medical decision making. Kira Cooney Aug 13, 2022,05:10 GABY BOWLING Aug 12, 2022 10:29 KIRA COONEY DO Aug 13, 2022 05:14
--- NOTE | 2022-08-12 10:55 | Physical Therapy Evaluation ---
PT Evaluation-General Medical Diagnosis Admission Date Aug 11, 2022 at 18:50 Medical Diagnosis: spinal stenosis Onset Date: Aug 11, 2022 Therapy Diagnosis Therapy Diagnosis: generalized weakness/impaired mobility Precautions Precautions/Isolations: Fall Prevention, Standard Precautions Weight Bear Status Right Lower Extremity: Right Weight Bearing/Tolerated Left Lower Extremity: Left Weight Bearing/Tolerated Referral Physician: Fitz Reason for Referral: Evaluation/Treatment Medical History Pertinent Medical History: DM, HTN, Neuropathy Additional Medical History legally blind Current History EMS secondary to multiple falls. Reviewed History: Yes Social History Home: Single Level Current Living Status: Children Prior Prior Level of Function SCALE: Activities may be completed with or without assistive devices. 3-Gchwaoxtbs-yovpvtc completes the activity by him/herself with no assistance from a helper. 5-Set-up or Clean-up Assistance-helper sets up or cleans up; patient completes activity. [place] assists only prior to or following the activity. 4-Supervision or Touching Assistance-helper provides verbal cues and/or touching/steadying and/or contact guard assistance as patient completes activity. Assistance may be provided throughout the activity or intermittently. 3-Partial/Moderate Assistance-helper does LESS THAN HALF the effort. [place] lifts, holds or supports trunk or limbs, but provides less than half the effort. 2-Substantial/Maximal Assistance-helper does MORE THAN HALF the effort. [place] lifts or holds trunk or limbs and provides more than half the effort. 4-Tispdpwlc-vugfjt does ALL the effort. Patient does none of the effort to complete the activity. Or, the assistance of 2 or more helpers is required for the patient to complete the activity. If activity was not attempted, code reason: 7-Patient Refused. 9-Not Applicable-not attempted and the patient did not perform the activity before the current illness, exacerbation or injury. 10-Not Attempted due to Environmental Limitations-(lack of equipment, weather restraints, etc.). 88-Not Attempted due to Medical Conditions or Safety Concerns. Bed Mobility: 6 Transfers (B,C,W/C): 6 Gait: 6 Indoor Mobility (Ambulation): Independent Prior Devices Use: Walker (PRN) PT Evaluation-Current Subjective Patient reports that the weakness started in his lower legs and has "worked it's way up." Very tender to palpation bilateral LE with significant tenderness right LE distally. Pain Numeric Pain Scale: 10-Worst Possible Pain Location: Right, Left Location Body Site: Generalized Objective Patient Orientation: Normal For Age Attachments: IV ROM/Strength ROM Lower Extremities bilateral LE WFL Strength Lower Extremities unable to formally test due to tenderness to touch (grossly 3/5 bilaterally) Integumentary/Posture Integumentary refer to nursing notes (no hair bilateral LE) Bowel Incontinence: Yes Bladder Incontinence: Yes Posture WFL Neuromuscular (Tone, Coordination, Reflexes) noted bilateral UE tremors/grossly intact with mobility Sensory Vision: Blind Legally Hearing: Functional Sensation Right Lower Extremit: Impaired Sensation Left Lower Extremity: Impaired Transfers Lying to Sitting/Side of Bed(Q: 4 Sit to Stand (QC): 3 Chair/Oin-wy-Bijjw Xfer(QC): 3 Gait Does the Patient Walk?: Yes Mode of Locomotion: Walk Anticipated Mode of Locomotion: Walk Walk 10 feet (QC): 3 Distance: 10' Gait Assistive Device: FWW Comments/Gait Description patient initially declined to attempt to stand due to right knee pain, however, after much encouragement, patient was able to perform/slow, functional Wheelchair Training Does the Pt Use a Wheelchair?: No Balance Sitting Static: Normal Sitting Dynamic: Normal Standing Static: Fair Standing Dynamic: Fair Assessment/Needs Patient unable to don socks due to inability to bend over per patient. Patient tolerates minimal activity and requires much encouragement to participate with PT. Patient limited due to bilateral LE pain at this time. Rehab Potential: Fair PT Grubber Goals Grubber Goals PT Grubber Goals Time Frame: Aug 24, 2022 Roll Left & Right (QC): 4 Sit to Lying (QC): 4 Lying-Sitting on Side/Bed(QC): 4 Sit to Stand (QC): 4 Chair/Vkx-ee-Evgdv Xfer(QC): 4 Toilet Transfer (QC): 4 Walk 10 feet (QC): 4 Walk 50ft with 2 Turns (QC): 4 Walk 150 ft (QC): 4 PT Plan Problem List Problem List: Activity Tolerance, Functional Strength, Safety, Balance, Gait, Transfer, Bed Mobility, ROM Treatment/Plan Treatment Plan: Continue Plan of Care Treatment Plan: Bed Mobility, Education, Functional Activity Rogers, Functional Strength, Gait, Safety, Therapeutic Exercise, Transfers Treatment Duration: Aug 24, 2022 Frequency: 6 times per week Estimated Hrs Per Day: .25 hour per day Patient and/or Family Agrees t: Yes Time/GCodes Time In: 855 Time Out: 917 Total Billed Treatment Time: 22 Total Billed Treatment 1 visit EVHighC 22 min KHUSHI LUI PT Aug 12, 2022 10:55
[2022-08-12] MEDS ORDERED: DULO30CA49 PO (11:13)
[2022-08-12] MEDS ORDERED: GABA-490 PO (11:21)
[2022-08-12] MEDS ORDERED: HYDR50TA76 PO (11:23)
[2022-08-12] MEDS ORDERED: TRAZ-227 PO (11:24)
[2022-08-12] MEDS ORDERED: PRIM50TA33 PO (11:25)
[2022-08-12] MEDS ORDERED: GBPN600T PO (11:28)
[2022-08-12] MEDS ORDERED: LISI20TA26 PO (11:30)
[2022-08-12] MEDS ORDERED: PANT40TA52 PO (11:31)
[2022-08-12] MEDS ORDERED: ATOR20TA66 PO (11:32)
--- NOTE | 2022-08-12 11:36 | Occupational Therapy Eval ---
OT Evaluation-General/PLF Medical Diagnosis Admission Date Aug 11, 2022 at 18:50 Medical Diagnosis: spinal stenosis Onset Date: Aug 11, 2022 Therapy Diagnosis Therapy Diagnosis: Reduced ADL status Precautions Precautions/Isolations: Fall Prevention, Standard Precautions Referral Physician: Fitz Barker Reason: Evaluation/Treatment Medical History Pertinent Medical History: DM, HTN, Neuropathy Current History Pt came to ER by ambulance due to balance deficits and multiple falls within the last couple days. Pt lives with daughter in a house and before hospitalization, did not need any assistance with ADLs. Pt and pt's daughter shared responsibility of IADLs. Pt reported that he used a cane at home but had a walker at home if he needed it. He reported falling 4-5 times in the last 2 days at home. This last fall was on his knees and he c/o of a 10/10 pain in lower back, knees, and feet. He has increased edema in bilateral LEs. He also reports that he has been falling due to not feeling his legs and his legs giving out on him. Pt reported a history of neuropathy. Reviewed History: Yes Social History Home: Single Level Current Living Status: Children ADL-Prior Level of Function SCALE: Activities may be completed with or without assistive devices. 3-Rqjccudnmf-irrskkk completes the activity by him/herself with no assistance from a helper. 5-Set-up or Clean-up Assistance-helper sets up or cleans up; patient completes activity. [place] assists only prior to or following the activity. 4-Supervision or Touching Assistance-helper provides verbal cues and/or touching/steadying and/or contact guard assistance as patient completes activity. Assistance may be provided throughout the activity or intermittently. 3-Partial/Moderate Assistance-helper does LESS THAN HALF the effort. [place] lifts, holds or supports trunk or limbs, but provides less than half the effort. 2-Substantial/Maximal Assistance-helper does MORE THAN HALF the effort. [place] lifts or holds trunk or limbs and provides more than half the effort. 0-Fiftgpgxg-qkjbpm does ALL the effort. Patient does none of the effort to complete the activity. Or, the assistance of 2 or more helpers is required for the patient to complete the activity. If activity was not attempted, code reason: 7-Patient Refused. 9-Not Applicable-not attempted and the patient did not perform the activity before the current illness, exacerbation or injury. 10-Not Attempted due to Environmental Limitations-(lack of equipment, weather restraints, etc.). 88-Not Attempted due to Medical Conditions or Safety Concerns. Self Care: Independent Functional Cognition: Independent DME/Equipment: Bath Chair, Shower Drive Self: Yes OT Current Status Subjective Pt was up with nursing upon arrival. He was getting back into bed. He agreed to therapy eval. Appearance Pt left laying in bed with all needs within reach. Mental Status/Objective Patient Orientation: Person, Place, Time, Situation Attachments: IV Current Glasses/Contacts: Yes Hearing Aids: Yes Dentures/Partials: No Hand Dominance: Right Upper Extremity ROM ~155 degrees at shoulder with pain in lower back upon ROM Upper Extremity Sensation Light/deep touch with eyes closed to LEs: bilateral 5/10 correct Upper Extremity Strength Due to pain in lower back, strength in shoulders was not tested. Leasing Specialist strength: moderately impaired ADL-Treatment Lower Body Dressing (QC): 1 (due to clinical judgment and assist of 2 for standing) On/Off Footwear (QC): 2 (able to doff/ unable to don due to pain) Nursing reported needing assist x2 for standing from chair and transferring to bed. Pt takes small shuffle steps with a decrease in balance for functional transfer. Pt able to sit EOB with good-fair balance and doff socks but unable to don bilateral socks due to pain and edema. Pt needed assist of 2 to stand and for balance once standing, so assume dependent for lower body dressing. Anticipate an increase in independence with ADLs once pain and edema decrease. Pt able to scoot towards HOB with SBA. Sit>supine: SBA for safety and increased time to complete. Pt would benefit from skilled OT services to address ADLs, weakness, and functional transfers. Education OT Patient Education: Correct positioning, Energy conservation, Modified ADL techniques, Progress toward Goal/Update tx plan, Purpose of tx/functional activities, Reviewed precautions, Rehab process, Safety issues, Transfer techniques Teaching Recipient: Patient Teaching Methods: Demonstration, Discussion Response to Teaching: Verbalize Understanding, Return Demonstration OT Usp Goals Usp Goals Time Frame: Aug 26, 2022 Oral Hygiene (QC): 4 Toileting Hygiene (QC): 4 Shower/Bathe Self (QC): 4 Upper Body Dressing (QC): 5 Lower Body Dressing (QC): 4 On/Off Footwear (QC): 4 Additional Goals: 1-Demonstrate ADL Tasks, 2-Verbalize Understanding, 3- ImproveStrength/Rogers 1=Demonstrate adherence to instructed precautions during ADL tasks. 2=Patient will verbalize/demonstrate understanding of assistive devices/modifications for ADL. 3=Patient will improve strength/tolerance for activity to enable patient to perform ADL's. OT Education/Plan Problem List/Assessment Assessment: Decreased Activ Tolerance, Decreased UE Strength, Dependent Transfers, Edema, Impaired Bed Mobility, Impaired Coordination, Impaired Funct Balance, Impaired I ADL's, Impaired Self-Care Skills, Restricted Funct UE ROM Discharge Recommendations Plan/Recommendations: Continue POC Comment ongoing assessment Treatment Plan/Plan of Care Treatment,Training & Education: Yes Patient would benefit from OT for education, treatment and training to promote independence in ADL's, mobility, safety and/or upper extremity function for ADL's. Plan of Care: ADL Retraining, Caregiver Training, Functional Mobility, Group Exercise/Act as Ind, UE Funct Exercise/Act Treatment Duration: Aug 26, 2022 Frequency: 3 times per week (3-5x/week) Estimated Hrs Per Day: .25 hour per day Agreement: Yes Rehab Potential: Fair Time/GCodes Start Time: 10:37 Stop Time: 10:48 Total Time Billed (hr/min): 11 Billed Treatment Time 1 visit Sepideh Mendoza OT Aug 12, 2022 11:36
[2022-08-12] MEDS ORDERED: ACET-3075 PO (11:39)
[2022-08-12] MEDS ORDERED: MULT-974 PO (11:39)
[2022-08-12] MEDS ORDERED: VITA1TAB17 PO (11:41)
[2022-08-12] MEDS ORDERED: CHOL-34 PO (11:41)
[2022-08-12] MEDS: GABAPENTIN 600 MG (NEURONTIN) TAB PO SCH (12:10)
[2022-08-12] MEDS ORDERED: GABAPENTIN 300 MG (NEURONTIN) CAP PO SCH (13:00)
[2022-08-12] MEDS: cloNIDine 0.1 MG (CATAPRES) TAB PO PRN (14:04)
[2022-08-12] MEDS: buPROPion SR 150 MG (WELLBUTRIN SR) TAB PO SCH (20:00)
[2022-08-12] MEDS: ENOXAPARIN 40 MG/0.4 ML (LOVENOX) SYR SC SCH (20:00)
[2022-08-12] MEDS: SODIUM CHLORIDE 1 GM TABLET PO SCH (20:01)
[2022-08-12] MEDS ORDERED: GABAPENTIN 400 MG (NEURONTIN) CAP PO SCH (21:00)
[2022-08-13 03:22] VITALS: BP 158/76
[2022-08-13 05:59] LABS: BASOPHILS # (AUTO) 0.1 10^3/uL (0.0-0.1); BASOPHILS % (AUTO) 1 % (0-10); EOSINOPHILS # (AUTO) 0.3 10^3/uL (0.0-0.3); EOSINOPHILS % (AUTO) 3 % (0-10); HEMATOCRIT 29 % (40-54); HEMOGLOBIN 9.7 g/dL (13.3-17.7); LYMPHOCYTES # (AUTO) 1.5 10^3/uL (1.0-4.0); LYMPHOCYTES % (AUTO) 18 % (12-44); MEAN CORPUSCULAR HEMOGLOBIN 32 pg (25-34); MEAN CORPUSCULAR HGB CONC 33 g/dL (32-36); MEAN CORPUSCULAR VOLUME 97 fL (80-99); MEAN PLATELET VOLUME 9.4 fL (9.0-12.2); MONOCYTES # (AUTO) 1.1 10^3/uL (0.0-1.0); MONOCYTES % (AUTO) 14 % (0-12); NEUTROPHILS # (AUTO) 5.3 10^3/uL (1.8-7.8); NEUTROPHILS % (AUTO) 64 % (42-75); PLATELET COUNT 251 10^3/uL (130-400); WHITE BLOOD COUNT 8.2 10^3/uL (4.3-11.0)
[2022-08-13 06:15] LABS: ALBUMIN 3.5 GM/DL (3.2-4.5); POTASSIUM 4.1 MMOL/L (3.6-5.0)
[2022-08-13 06:18] LABS: TOTAL PROTEIN 6.3 GM/DL (6.4-8.2)
[2022-08-13 06:20] LABS: BILIRUBIN,TOTAL 0.4 MG/DL (0.1-1.0)
[2022-08-13 06:21] LABS: CREATININE SERUM 0.98 MG/DL (0.60-1.30)
--- NOTE | 2022-08-13 06:22 | Discharge Summary ---
Diagnosis/Chief Complaint Date of Admission Aug 11, 2022 at 18:50 Date of Discharge Discharge Date: Aug 13, 2022 Discharge Diagnosis Assessment: Mr. Garland Solano is a 57 y/o M with PMH of chronic pain, HTN, and cervical spinal stenosis who presented to the hospital on 08/10/22 for gene ralized weakness, falls, and headache likely due to his known cervical spinal stenosis. Plan: 1. Generalized weakness due to Cervical spinal stenosis of C6-C7. - Outside imaging results faxed over and review. (see imaging for reports) - Initial neurology consultation faxed over, but post-imaging note not faxed over yet. - Bilateral lower extremities weakness > bilateral upper extremities weakness - pt has follow up with Neurosurgery on 08/24/22 to assess surgical candidacy > PT/OT > Cont Gabapentin 1200mg TID > Cont Dilaudid 0.5mg IV q2 hr PRN > Cont Oxy 10mg q4 hr PRN 2. Confusion likely secondary to Hyponatremia > Fluid restriction > Sodium chloride 1gm tab BID > Consider Urine Na workup if continues to have hyponatremia 3. Constipation - last bowel movement 2 days ago, typically is regular > Cont Docusate 100mg BID 4. Hx of HTN > Cont amlopidine 5mg > Cont Clonidine 0.1 mg q4 PRN Dispo: will likely need placement at nursing facility until can be seen for neurosurgery consultation Diet: regular diet DVT PPX: Lovenox Code: Full code Discharge Summary Discharge Physical Examination Allergies: Coded Allergies: meperidine (Verified Allergy, Unknown, TACHYCARDIA, 06/08/22) Vitals & I&Os Vital Signs Date Time Temp Pulse Resp B/P (MAP) Pulse Ox O2 Delivery O2 Flow Rate FiO2 08/13/22 08:09 36.6 92 18 182/79 (113) 96 Room Air 08/12/22 07:51 2.00 08/11/22 19:30 21 General Appearance: Alert, Oriented X3, Cooperative Respiratory: Clear to Auscultation Cardiovascular: Regular Rate Psych/Mental Status: Mental Status NL Hospital Course Was the Problem List Reviewed?: Yes Mr. Garland Solano is a 57 y/o male with PMH of cervical spine stensosi, chronic back and leg pain, and HTN who presented to the ED on 08/10/22 for generalized weakness, falls, and headache likely due to his known cervical spinal stenosis. Upon presentation his work up was significant for anemia at 9.6, hyponatremia at 132, an MARTÍN of 1.31, and drug screen positive for oxy, barbiturates, and cannabinoids. He had an extensive radiographic workup including head CT, knee xray, hip xray, and chest xray. His head CT showed no acute intracranial abnormality, his bilateral knee xray showed bilateral small joint effusions, his bilateral hip xray showed no acute bony abnormality of pelvis or hip but did show facet degeneration changes bilaterally at L5-S1, and his CXR showed no acute cardiopulmonary abnormality. On initial presentation he had significant lower extremity weakness limited by pain and on exam had 1/5 on hip flexor, 2/5 plantar flexion, and 4/5 dorsiflexion. He was started on pain control with dilaudid and oxycodone, and evaluated by PT and OT. With better pain control, his strength improved and on exam 4/5 hip flexor, 4/5 plantar flexion, and 4/5 dorsiflexion. He was continued on his other regular home medications. During his stay, he had some mild confusion and was hyponatremic to 128, he was started on Sodium Chloride 1g tablets and his sodium improved to 130 and his confusion resolved. He did not have a bowel movement during his short hospitalization but did receive a stool softner and felt like he would have one shortly before his transfer. Since there are no acute processes affecting his strength, we encouraged him to work with PT/OT to manage him until he has follow up with his neurosurgeon on 08/24/22 to evaluate if he is a surgical candidate for his cervical spinal stenosis. He is medically stable and able to be discharged to the acute rehab unit for further improvement in his strength and conditioning. New meds: Sodium Chloride tablets 1g BID [employer] (last 24 hrs) Laboratory Tests 08/11/22 09:40: White Blood Count 11.9H, Red Blood Count 3.33L, Hemoglobin 10.9L, Hematocrit 32L , Mean Corpuscular Volume 96, Mean Corpuscular Hemoglobin 33, Mean Corpuscular Hemoglobin Concent 34, Red Cell Distribution Width 13.3, Platelet Count 241, Mean Platelet Volume 9.6, Immature Granulocyte % (Auto) 0, Neutrophils (%) (Auto) 84H, Lymphocytes (%) (Auto) 5L, Monocytes (%) (Auto) 9, Eosinophils (%) (Auto) 1, Basophils (%) (Auto) 1, Neutrophils # (Auto) 10.0H, Lymphocytes # (Auto) 0.6L, Monocytes # (Auto) 1.1H, Eosinophils # (Auto) 0.1, Basophils # (Auto) 0.1, Immature Granulocyte # (Auto) 0.0, Neutrophils % (Manual) 92, Lymphocytes % (Manual) 6, Monocytes % (Manual) 2, Sodium Level 132L, Potassium Level 5.6H, Chloride Level 95L, Carbon Dioxide Level 29, Anion Gap 8, Blood Urea Nitrogen 20H, Creatinine 1.31H, Estimat Glomerular Filtration Rate 64, BUN/Creatinine Ratio 15, Glucose Level 210H, Calcium Level 8.9, Corrected Calcium 9.1, Total Bilirubin 0.3, Aspartate Amino Transf (AST/SGOT) 17, Alanine Aminotransferase (ALT/SGPT) 16, Alkaline Phosphatase 83, Total Protein 6.5, Albumin 3.7 08/11/22 10:13: Urine Color YELLOW, Urine Clarity CLEAR, Urine pH 6.5, Urine Specific [place] 1.015L, Urine Protein NEGATIVE, Urine Glucose (UA) 1+H, Urine Ketones NEGATIVE, Urine Nitrite NEGATIVE, Urine Bilirubin NEGATIVE, Urine Urobilinogen 0.2, Urine Leukocyte Esterase NEGATIVE, Urine RBC (Auto) NEGATIVE, Urine RBC 2-5H, Urine WBC NONE, Urine Crystals NONE, Urine Bacteria NEGATIVE, Urine Casts NONE, Urine Mucus NEGATIVE, Urine Culture Indicated NO, Urine Opiates Screen NEGATIVE, Urine Oxycodone Screen POSITIVEH, Urine Methadone Screen NEGATIVE, Urine Propoxyphene Screen NEGATIVE, Urine Barbiturates Screen POSITIVEH, Ur Tricyclic Antidepressants Screen NEGATIVE, Urine Phencyclidine Screen NEGATIVE, Urine Amphetamines Screen NEGATIVE, Urine Methamphetamines Screen NEGATIVE, Urine Benzodiazepines Screen NEGATIVE, Urine Cocaine Screen NEGATIVE, Urine Cannabinoids Screen POSITIVEH 08/12/22 05:38: White Blood Count 10.6, Red Blood Count 3.01L, Hemoglobin 9.6L, Hematocrit 29L, Mean Corpuscular Volume 96, Mean Corpuscular Hemoglobin 32, Mean Corpuscular Hemoglobin Concent 33, Red Cell Distribution Width 13.1, Platelet Count 247, Mean Platelet Volume 9.4, Immature Granulocyte % (Auto) 0, Neutrophils (%) (Auto) 76H, Lymphocytes (%) (Auto) 10L, Monocytes (%) (Auto) 11, Eosinophils (%) (Auto) 1, Basophils (%) (Auto) 1, Neutrophils # (Auto) 8.1H, Lymphocytes # (Auto) 1.1, Monocytes # (Auto) 1.2H, Eosinophils # (Auto) 0.1, Basophils # (Auto) 0.1, Immature Granulocyte # (Auto) 0.0, Sodium Level 128L, Potassium Level 4.6, Chloride Level 95L, Carbon Dioxide Level 26, Anion Gap 7, Blood Urea Nitrogen 15, Creatinine 1.03, Estimat Glomerular Filtration Rate 86, BUN/Creatinine Ratio 15, Glucose Level 175H, Calcium Level 8.7, Corrected Ca lcium 9.2, Total Bilirubin 0.5, Aspartate Amino Transf (AST/SGOT) 13, Alanine Aminotransferase (ALT/SGPT) 13, Alkaline Phosphatase 66, Total Protein 6.1L, Albumin 3.4 08/13/22 05:40: White Blood Count 8.2, Red Blood Count 3.04L, Hemoglobin 9.7L, Hematocrit 29L, Mean Corpuscular Volume 97, Mean Corpuscular Hemoglobin 32, Mean Corpuscular Hemoglobin Concent 33, Red Cell Distribution Width 13.1, Platelet Count 251, Mean Platelet Volume 9.4, Immature Granulocyte % (Auto) 1, Neutrophils (%) (Auto) 64, Lymphocytes (%) (Auto) 18, Monocytes (%) (Auto) 14H, Eosinophils (%) (Auto) 3, Basophils (%) (Auto) 1, Neutrophils # (Auto) 5.3, Lymphocytes # (Auto) 1.5, Monocytes # (Auto) 1.1H, Eosinophils # (Auto) 0.3, Basophils # (Auto) 0.1, Immature Granulocyte # (Auto) 0.0, Sodium Level 130L, Potassium Level 4.1, Chloride Level 95L, Carbon Dioxide Level 26, Anion Gap 9, Blood Urea Nitrogen 13, Creatinine 0.98, Estimat Glomerular Filtration Rate 91, BUN/Creatinine Ratio 13, Glucose Level 114H, Calcium Level 9.0, Corrected Calcium 9.4, Total Bilirubin 0.4, Aspartate Amino Transf (AST/SGOT) 11, Alanine Aminotransferase (ALT/SGPT) 13, Alkaline Phosphatase 60, Total Protein 6.3L, Albumin 3.5 Pending Labs Laboratory Tests 08/11/22 09:40: White Blood Count 11.9, Red Blood Count 3.33, Hemoglobin 10.9, Hematocrit 32, Mean Corpuscular Volume 96, Mean Corpuscular Hemoglobin 33, Mean Corpuscular Hemoglobin Concent 34, Red Cell Distribution Width 13.3, Platelet Count 241, Mean Platelet Volume 9.6, Immature Granulocyte % (Auto) 0, Neutrophils (%) (Auto) 84, Lymphocytes (%) (Auto) 5, Monocytes (%) (Auto) 9, Eosinophils (%) (Auto) 1, Basophils (%) (Auto) 1, Neutrophils # (Auto) 10.0, Lymphocytes # (Auto) 0.6, Monocytes # (Auto) 1.1, Eosinophils # (Auto) 0.1, Basophils # (Auto) 0.1, Immature Granulocyte # (Auto) 0.0, Neutrophils % (Manual) 92, Lymphocytes % (Manual) 6, Monocytes % (Manual) 2, Sodium Level 132, Potassium Level 5.6, Chloride Level 95, Carbon Dioxide Level 29, Anion Gap 8, Blood Urea Nitrogen 20, Creatinine 1.31, Estimat Glomerular Filtration Rate 64, BUN/Creatinine Ratio 15, Glucose Level 210, Calcium Level 8.9, Corrected Calcium 9.1, Total Bilirubin 0.3, Aspartate Amino Transf (AST/SGOT) 17, Alanine Aminotransferase (ALT/SGPT) 16, Alkaline Phosphatase 83, Total Protein 6.5, Albumin 3.7 08/11/22 10:13: Urine Color YELLOW, Urine Clarity CLEAR, Urine pH 6.5, Urine Specific [place] 1.015, Urine Protein NEGATIVE, Urine Glucose (UA) 1+, Urine Ketones NEGATIVE, Urine Nitrite NEGATIVE, Urine Bilirubin NEGATIVE, Urine Urobilinogen 0.2, Urine Leukocyte Esterase NEGATIVE, Urine RBC (Auto) NEGATIVE, Urine RBC 2-5, Urine WBC NONE, Urine Crystals NONE, Urine Bacteria NEGATIVE, Urine Casts NONE, Urine Mucus NEGATIVE, Urine Culture Indicated NO, Urine Opiates Screen NEGATIVE, Urine Oxycodone Screen POSITIVE, Urine Methadone Screen NEGATIVE, Urine Propoxyphene Screen NEGATIVE, Urine Barbiturates Screen POSITIVE, Ur Tricyclic Antidepressants Screen NEGATIVE, Urine Phencyclidine Screen NEGATIVE, Urine Amphetamines Screen NEGATIVE, Urine Methamphetamines Screen NEGATIVE, Urine Benzodiazepines Screen NEGATIVE, Urine Cocaine Screen NEGATIVE, Urine Cannabinoids Screen POSITIVE 08/12/22 05:38: White Blood Count 10.6, Red Blood Count 3.01, Hemoglobin 9.6, Hematocrit 29, Mean Corpuscular Volume 96, Mean Corpuscular Hemoglobin 32, Mean Corpuscular Hemoglobin Concent 33, Red Cell Distribution Width 13.1, Platelet Count 247, Mean Platelet Volume 9.4, Immature Granulocyte % (Auto) 0, Neutrophils (%) (Aut o) 76, Lymphocytes (%) (Auto) 10, Monocytes (%) (Auto) 11, Eosinophils (%) (Auto) 1, Basophils (%) (Auto) 1, Neutrophils # (Auto) 8.1, Lymphocytes # (Auto) 1.1, Monocytes # (Auto) 1.2, Eosinophils # (Auto) 0.1, Basophils # (Auto) 0.1, Immature Granulocyte # (Auto) 0.0, Sodium Level 128, Potassium Level 4.6, Chloride Level 95, Carbon Dioxide Level 26, Anion Gap 7, Blood Urea Nitrogen 15, Creatinine 1.03, Estimat Glomerular Filtration Rate 86, BUN/Creatinine Ratio 15, Glucose Level 175, Calcium Level 8.7, Corrected Calcium 9.2, Total Bilirubin 0.5, Aspartate Amino Transf (AST/SGOT) 13, Alanine Aminotransferase (ALT/SGPT) 13, Alkaline Phosphatase 66, Total Protein 6.1, Albumin 3.4 08/13/22 05:40: White Blood Count 8.2, Red Blood Count 3.04, Hemoglobin 9.7, Hematocrit 29, Mean Corpuscular Volume 97, Mean Corpuscular Hemoglobin 32, Mean Corpuscular Hemoglobin Concent 33, Red Cell Distribution Width 13.1, Platelet Count 251, Mean Platelet Volume 9.4, Immature Granulocyte % (Auto) 1, Neutrophils (%) (Auto) 64, Lymphocytes (%) (Auto) 18, Monocytes (%) (Auto) 14, Eosinophils (%) (Auto) 3, Basophils (%) (Auto) 1, Neutrophils # (Auto) 5.3, Lymphocytes # (Auto) 1.5, Monocytes # (Auto) 1.1, Eosinophils # (Auto) 0.3, Basophils # (Auto) 0.1, Immature Granulocyte # (Auto) 0.0, Sodium Level 130, Potassium Level 4.1, Chloride Level 95, Carbon Dioxide Level 26, Anion Gap 9, Blood Urea Nitrogen 13, Creatinine 0.98, Estimat Glomerular Filtration Rate 91, BUN/Creatinine Ratio 13, Glucose Level 114, Calcium Level 9.0, Corrected Calcium 9.4, Total Bilirubin 0.4, Aspartate Amino Transf (AST/SGOT) 11, Alanine Aminotransferase (ALT/SGPT) 13, Alkaline Phosphatase 60, Total Protein 6.3, Albumin 3.5 Discharge Home Medications: Active Scripts Active Reported Vitamin D3 (Cholecalciferol (Vitamin D3)) 25 Mcg (1000 Unit) Tablet 25 Mcg PO DAILY Vitamin B Complex 1 Each Tablet 1 Each PO DAILY Multi-Vitamin Daily (Multivitamin) 1 Each Tablet 1 Each PO DAILY Tylenol Pm Ex-Strength Caplet (Acetaminophen/Diphenhydramine) 500 Mg-25 Mg Tablet 2 Each PO HS PRN Atorvastatin Calcium 20 Mg Tablet 20 Mg PO DAILY Pantoprazole Sodium 40 Mg Tablet.dr 40 Mg PO DAILY Lisinopril 20 Mg Tablet 20 Mg PO DAILY Gabapentin 600 Mg Tablet 1,200 Mg PO 0800,1200 TAKES 2 (600MG) TAB Mysoline (Primidone) 50 Mg Tablet 50 Mg PO TID Trazodone HCl 100 Mg Tablet 100 Mg PO HS Hydroxyzine HCl 50 Mg Tablet 50 Mg PO BID Gabapentin 400 Mg Capsule 1,200 Mg PO HS TAKES 3 (400MG) CAPS Duloxetine HCl 30 Mg Capsule.dr 30 Mg PO TID Timoptic (Timolol Maleate) 0.5 % Drops 1 Drop OU TID Amlodipine Besylate 5 Mg Tablet 5 Mg PO DAILY Bupropion Xl (Bupropion HCl) 300 Mg Tab.er.24h 300 Mg PO DAILY Metformin HCl 500 Mg Tablet 500 Mg PO BID Celecoxib 100 Mg Capsule 100 Mg PO DAILY Oxycodone HCl 15 Mg Tablet 15 Mg PO QID PRN FILLED 08-03-2022 #120/30 DAY SUPPLY Instructions to patient/family Please see electronic discharge instructions given to patient. PATSY COONEY DO Aug 13, 2022 06:22
[2022-08-13] MEDS: buPROPion SR 150 MG (WELLBUTRIN SR) TAB PO SCH (08:01)
[2022-08-13] MEDS: amLODIPine 5 MG (NORVASC) TAB PO SCH (08:01)
[2022-08-13] MEDS: GABAPENTIN 600 MG (NEURONTIN) TAB PO SCH (08:01)
[2022-08-13] MEDS: DOCUSATE SODIUM 100 MG (COLACE) CAP PO SCH (08:01)
[2022-08-13] MEDS: SODIUM CHLORIDE 1 GM TABLET PO SCH (08:02)
[2022-08-13 08:09] VITALS: BP 182/79
[2022-08-13] MEDS ORDERED: NON-FORMULARY MEDICATION 1 EA EA (Bupropion HCl (Bupropion Xl) 150 MG) PO SCH (09:00)
--- NOTE | 2022-08-13 11:35 | Progress Note ---
GABY BOWLING 08/13/22 1135: Progress Note Mr. Garland Solano is a 57 y/o male with PMH of cervical spine stensosi, chronic back and leg pain, and HTN who presented to the ED on 08/10/22 for generalized weakness, falls, and headache likely due to his known cervical spinal stenosis. Upon presentation his work up was significant for anemia at 9.6, hyponatremia at 132, an MARTÍN of 1.31, and drug screen positive for oxy, barbiturates, and cannabinoids. He had an extensive radiographic workup including head CT, knee xray, hip xray, and chest xray. His head CT showed no acute intracranial abnormality, his bilateral knee xray showed bilateral small joint effusions, his bilateral hip xray showed no acute bony abnormality of pelvis or hip but did show facet degeneration changes bilaterally at L5-S1, and his CXR showed no acute cardiopulmonary abnormality. On initial presentation he had significant lower extremity weakness limited by pain and on exam had 1/5 on hip flexor, 2/5 plantar flexion, and 4/5 dorsiflexion. He was started on pain control with dilaudid and oxycodone, and evaluated by PT and OT. With better pain control, his strength improved and on exam 4/5 hip flexor, 4/5 plantar flexion, and 4/5 dorsiflexion. He was continued on his other regular home medications. During his stay, he had some mild confusion and was hyponatremic to 128, he was started on Sodium Chloride 1g tablets and his sodium improved to 130 and his confusion resolved. He did not have a bowel movement during his short hospitalization but did receive a stool softner and felt like he would have one shortly before his transfer. Since there are no acute processes affecting his strength, we encouraged him to work with PT/OT to manage him until he has follow up with his neurosurgeon on 08/24/22 to evaluate if he is a surgical candidate for his cervical spinal stenosis. He is medically stable and able to be discharged to the acute rehab unit for further improvement in his strength and conditioning. New meds: Sodium Chloride tablets 1g BID EROSKIRA DO 08/14/22 0552: Supervisory-Addendum Brief Verification & Attestation Participated in pt care: history, MDM, physical Personally performed: exam, history, MDM, supervision of care Care discussed with: Medical Student Procedures: n/a Results interpretation: Verified all documentation Verification and Attestation of Medical Student E/M Service A medical student performed and documented this service in my presence. I reviewed and verified all information documented by the medical student and made modifications to such information, when appropriate. I personally performed the physical exam and medical decision making. Kira Cooney, Aug 14, 2022,05:52 GABY BOWLING Aug 13, 2022 11:35 KIRA COONEY DO Aug 14, 2022 05:52
== END 2022-08-13 09:00 | DRG 552 ==
LOC: EDUNIT# 09:41 → ER FS 09:43 → 4TH 18:50
PROVIDERS: ADMIT Internal Medicine; ATTEND Internal Medicine
DX: M48.02 Spinal stenosis, cervical region (principal); N17.9 Acute kidney failure, unspecified; E87.1 Hypo-osmolality and hyponatremia; E11.9 Type 2 diabetes mellitus without complications; M25.562 Pain in left knee; M25.561 Pain in right knee; Z91.81 History of falling; I10 Essential (primary) hypertension; H54.8 Legal blindness, as defined in USA; R41.0 Disorientation, unspecified; K59.00 Constipation, unspecified; D64.9 Anemia, unspecified; W19.XXXA Unspecified fall, initial encounter
CPT/HCPCS: 36415; 70450; 71045; 73521; 80053; 80306; 81000; 85007; 85025; 85027; 94760

== ENCOUNTER 2022-08-13 09:00 | Inpatient (IN) | payer MEDICARE ==
[~2022-08-13] VITALS: Ht 177.8 cm; Wt 107.6 kg
[~2022-08-13 09:00] MED LIST changes: +ACET-3075 PO; +ATOR20TA66 PO; +BISACODYL 10 MG SUPP (DULCOLAX) PR PRN; +CALCIUM CARBONATE 500 MG (TUMS) TAB.CHEW PO PRN; +CHOL-34 PO; +DOCUSATE SODIUM 100 MG (COLACE) CAP PO PRN; +DULO30CA49 PO; +FLEET ENEMA ADULT 1 EA BTL PR PRN; +GABA-490 PO; +GBPN600T PO; +HYDR50TA76 PO; +LACTULOSE SYRUP 10GM/15ML (ENULOSE) 30ML UDC PO PRN; +LOPERAMIDE 2 MG (IMODIUM) TABLET PO PRN; +MELATONIN 3 MG TABLET PO PRN; +MULT-974 PO; +ONDANSETRON 4 MG (ZOFRAN) ORAL DISSOLVE TAB PO PRN; +PANT40TA52 PO; +PRIM50TA33 PO; +TRAZ-227 PO; +VITA1TAB17 PO; +diphenhydrAMINE 25 MG TAB (BENADRYL) PO PRN; +guaiFENesin/CODEINE (ROBITUSSIN AC) 10ML UDC PO PRN
--- NOTE | 2022-08-13 09:44 | Occupational Therapy Eval ---
OT Evaluation-General/PLF Medical Diagnosis Admission Date Aug 13, 2022 at 09:00 Medical Diagnosis: Cervical spinal stenosis Onset Date: Aug 11, 2022 Therapy Diagnosis Therapy Diagnosis: Reduced adl status Precautions Precautions/Isolations: Fall Prevention, Standard Precautions, Pressure Ulcer Referral Physician: Fitz Barker Reason: Evaluation/Treatment Medical History Pertinent Medical History: DM, HTN, Neuropathy Current History Pt came to ER by ambulance due to balance deficits and multiple falls within the last couple days. Pt lives with his daughter in a trailer. He reports independence with adls and shares IADL responsibilities with his daughter. Pt used a cane at home but owns a walker for PRN. He reported falling 4-5 times in the last 2 days at home. He has increased edema in bilateral LEs and reports that he has been falling due to poor sensation and his legs giving out. Pt reported a history of neuropathy. Per chart: MRI C Spine 06/10/22: 1. Severe degenerative changes noted in the mid to lower cervical spine with multilevel moderate to severe spinal stenosis, most prominent at C6-C7 level. 2. Cord flattening, probably cord gliosis/edema at C6-C7. 3. Marrow edema/abnormal signal noted at several levels in the the cervical spine from C3 through C7. Would favor discogenic marrow changes; however, infection or neoplasm not completely excluded. Reviewed History: Yes Social History Home: Single Level (trailer home) Current Living Status: Children (Daughter) Entry Into Home: Ramp, Stairs With Railing ADL-Prior Level of Function SCALE: Activities may be completed with or without assistive devices. 7-[id number] completes the activity by him/herself with no assistance from a helper. 5-Set-up or Clean-up Assistance-helper sets up or cleans up; patient completes activity. [place] assists only prior to or following the activity. 4-Supervision or Touching Assistance-helper provides verbal cues and/or touching/steadying and/or contact guard assistance as patient completes activit y. Assistance may be provided throughout the activity or intermittently. 3-Partial/Moderate Assistance-helper does LESS THAN HALF the effort. [place] lifts, holds or supports trunk or limbs, but provides less than half the effort. 2-Substantial/Maximal Assistance-helper does MORE THAN HALF the effort. [place] lifts or holds trunk or limbs and provides more than half the effort. 3-Eprrhqbqo-fpbvdn does ALL the effort. Patient does none of the effort to complete the activity. Or, the assistance of 2 or more helpers is required for the patient to complete the activity. If activity was not attempted, code reason: 7-Patient Refused. 9-Not Applicable-not attempted and the patient did not perform the activity before the current illness, exacerbation or injury. 10-Not Attempted due to Environmental Limitations-(lack of equipment, weather restraints, etc.). 88-Not Attempted due to Medical Conditions or Safety Concerns. Self Care: Independent Functional Cognition: Independent DME/Equipment: Shower Drive Self: Yes OT Current Status Subjective Pt reports pain in back, neck, and R knee as 9/10. Pain meds given prior to assessment. Co-treat with PT for part of session secondary to high fall risk, poor endurance, high pain levels, and due to need of 2 skilled clinicians to progress indep and safety with adls and functional mobility. Appearance Pt left laying in bed, ice applied to R knee, with c/o of headache. All needs within reach at OT departure. 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 Upper Extremity Strength Not formally tested due to neck/back pain. Pt likely 3-/5 for shoulders, 3/5 e lbow-distally ADL-Treatment Eating (QC): 4 (pt reports using heavy/built up silverware at home due to temors) Oral Hygiene (QC): 5 (in standing) Shower/Bathe Self (QC): 7 Upper Body Dressing (QC): 5 Lower Body Dressing (QC): 3 (min assist for threading through correct leg hole) On/Off Footwear (QC): 2 (due to lck of ROM, cervical precautions at therapists discresion, and pain) Toileting Hygiene (QC): 4 (per clinical judgment) Pt in increased pain during session and with therapists discretion, activity was completed with extreme caution due to cervical findings in recent MRI. Pt able to don shirt with set up and needed min assist to thread bilateral legs. Sit<>stand transfer: SBA for safety, due to weakness, pain and sensation in LEs. Pt able to pull pants over hips with independence. Ambulated to therapy gym with 1 seated rest break. Pt stood at sink to perform oral hygiene with set up assist and increased fatigue at end of task. Pt educated about importance and benefits of a shower chair and possible grab bars in his shower at home. Pt acknowledged and agreed with the importance of shower chair and grab bars at home, stating his son's could put in the grab bars. Other Treatments Pt instructed and encouraged to tell therapists any feeling of increased pain, numbness, weakness, etc. at any time throughout session. Pt completed several functional activities in therapy gym to improve weakness, endurance, fine motor skills, proprioception, balance and coordination. Pt needed to sit mcc through functional activities due to increased fatigue, R knee pain and strain on lower back and neck. Education OT Patient Education: Correct positioning, Disease process, Energy conserv ation, Modified ADL techniques, Purpose of tx/functional activities, Rehab process, Safety issues, Transfer techniques, Use of adapted equipment Teaching Recipient: Patient Teaching Methods: Demonstration, Discussion Response to Teaching: Verbalize Understanding, Return Demonstration, Reinforcement Needed BIMS CAM BIMS Expression of Ideas and Wants: Without Difficulty Understanding Verbal Content: Understands Brief Interview/Mental Status: Yes IRF BECK BIMS: IRF BECK BIMS Response (Comments) Value Repitition of Three Words Three 3 Recalls Socks Yes, No Cue Required 2 Recalls Blue Yes, No Cue Required 2 Recalls Bed No, Could Not Recall 0 Year Correct 3 Month Accurate Within 5 Days 2 Day Correct 1 Total [address] Mental [address] No Notes: correct CAM Mental Status Change/Baseline: 0 Inattention: 0 Disorganized thinkin Altered level of consciousness: 0 OT Short Term Goals Short Term Goals Time Frame: Aug 26, 2022 Eatin Oral hygiene: 5 Toileting hygiene: 4 Shower/bathe self: 3 Upper body dressin Lower body dressin Putting on/taking off footwear: 3 OT Prison Goals Retail Cashier Associate Goals Time Frame: Sep 04, 2022 Eating (QC): 6 Oral Hygiene (QC): 6 Toileting Hygiene (QC): 5 Shower/Bathe Self (QC): 5 Upper Body Dressing (QC): 6 Lower Body Dressing (QC): 5 On/Off Footwear (QC): 5 (anticipate once pain subsides) Additional Goals: 1-Demonstrate ADL Tasks, 2-Verbalize Understanding, 3- ImproveStrength/Rogers 1=Demonstrate adherence to instructed precautions during ADL tasks. 2=Patient will verbalize/demonstrate understanding of assistive devices/modifications for ADL. 3=Patient will improve strength/tolerance for activity to enable patient to perform ADL's. OT Education/Plan Problem List/Assessment Assessment: Decreased Activ Tolerance, Decreased Safety Aware, Decreased UE Strength, Impaired Coordination, Impaired Funct Balance, Impaired I ADL's, Impaired Self-Care Skills, Restricted Funct UE ROM Discharge Recommendations Plan/Recommendations: Continue POC Comment ongoing assessment Treatment Plan/Plan of Care Treatment,Training & Education: Yes Patient would benefit from OT for education, treatment and training to promote independence in ADL's, mobility, safety and/or upper extremity function for ADL's. Plan of Care: ADL Retraining, Caregiver Training, Functional Mobility, Group Exercise/Act as Ind, UE Funct Exercise/Act Treatment Duration: Sep 04, 2022 Frequency: At least 5 of 7 days/Wk (IRF) Estimated Hrs Per Day: 1.5 hours per day (60-90 min/day) Agreement: Yes Rehab Potential: Fair Time/GCodes Start Time: 09:15 Stop Time: 10:40 Total Time Billed (hr/min): 75 Billed Treatment Time 1 visit EVM (15 min) ADL x2 (40 min) FA x2 (30 min) OT eval: PT eval: Co-treat: [id number] Sepideh Varela OT Aug 13, 2022 09:44
[2022-08-13] MEDS: SENNA W/DOCUSATE (SENOKOT S) TABLET PO SCH ×2 (09:58→21:29)
[2022-08-13] MEDS: polyethylene glycoL POWDER 17 GM (MIRALAX) PACK PO SCH ×2 (09:58→21:30)
[2022-08-13] MEDS: DOCUSATE SODIUM 100 MG (COLACE) CAP PO SCH ×2 (09:58→21:30)
[2022-08-13] MEDS ORDERED: cloNIDine 0.1 MG (CATAPRES) TAB PO PRN (10:15)
[2022-08-13] MEDS ORDERED: ACETAMINOPHEN 325 MG TABLET PO PRN (10:15)
[2022-08-13] MEDS ORDERED: MELATONIN 3 MG TABLET PO PRN (10:15)
[2022-08-13] MEDS ORDERED: polyethylene glycoL POWDER 17 GM (MIRALAX) PACK PO PRN (10:15)
[2022-08-13] MEDS ORDERED: ANTACID SUSP 30 ML UDC (MYLANTA) PO PRN (10:15)
[2022-08-13] MEDS ORDERED: diphenhydrAMINE 25 MG TAB (BENADRYL) PO PRN (10:15)
[2022-08-13] MEDS ORDERED: ONDANSETRON 4 MG (ZOFRAN) ORAL DISSOLVE TAB PO PRN (10:15)
[2022-08-13] MEDS ORDERED: diphenhydrAMINE 50 MG/ML INJ (BENADRYL) IVP PRN (10:15)
[2022-08-13] MEDS ORDERED: BISACODYL 10 MG SUPP (DULCOLAX) PR PRN (10:15)
[2022-08-13] MEDS ORDERED: ONDANSETRON 4 MG/2 ML (SDV) Z0FRAN IV PRN (10:15)
[2022-08-13] MEDS ORDERED: HYDROmorphone 2 MG/ML VIAL (DILAUDID) IV PRN (10:15)
--- NOTE | 2022-08-13 10:17 | PM&R Post Admission Assessment ---
PM&R Date of Visit: Aug 13, 2022 Time of Visit: 11:00 History of Present Illness Chief complaint: Cervical spine stenosis HPI: This is a 57-year-old male with chronic debility and chronic pain narcotic dependent with severe neuropathy who presents from fourth floor to inpatient rehab to help regain function with aggressive therapy until he meets with neurosurgery on 08/24/2022 to evaluate surgical option for cervical spine sten osis. He was originally set up to [facility] 2 months ago for concern of Guillain-Dunn or some sort of other neurological progression and that was ruled out by neurology during that admission. I did review records from [facility] and there did not appear to be any indication for transfer to higher level of care after full work-up was done 2 months ago. Currently he is doing well we will maintain home medication pain regimen. Prior level of function was use of assistive device due to severe weakness. Patient resulted labs reviewed. Imaging: Reviewed Imaging Films, Reviewed Imaging Report Imaging Head CT 08/11/22: IMPRESSION: No identified acute intracranial abnormality. Bilateral Knee Xray 08/11/22: IMPRESSION: 1. No acute fracture or dislocation in the bilateral knees. 2. Bilateral prior total knee arthroplasties. No periprosthetic fracture or loosening. 3. Bilateral small joint effusions in the knees. Bilateral pelvis/hip xray 08/11/22: IMPRESSION: No identified acute bony abnormality of the pelvis or either hip. Chest Xray 08/11/22: IMPRESSION: No identified acute cardiopulmonary abnormality. OUTSIDE IMAGING REPORTS MRI Brain 06/10/22: 1. Few small patchy elina of T2 whte matter hyperintensity in the periventricular and subcortical white matter likley related to chronic microvascular injury. 2. No acute intracranial process. MRI C Spine 06/10/22: 1. Severe degenerative changes noted in the mid to lower cervical spine with multilevel moderate to severe spinal stenosis, most prominent at C6-C7 level. 2. Cord flattening, probably cord gliosis/edema at C6-C7. 3. Marrow edema/abnormal signal noted at several levels in the the cervical spine from C3 through C7. Would favor discogenic marrow changes; however, infection or neoplasm not completely excluded. MRI Thoracic spine 06/10/22: 1. Mild sponylosis and disc bulging at several levels in the mid to lower thoracic spine. No level with disc herniation or spinal stenosis is noted. 2. Heterogenous marrow signal in thoracic spine with focal T10 vertebral body lesion noted. CT Thoracic spine w/out contrast 06/11/22: 1. No destructive bone lesion is visible in the T10 vertebral body where an indeterminate area of abnormal signal is identified on recent MRI of thoracic spine. Assessment/Plan Admission Diagnosis Weakness and hx of falls in setting of cervical spinal stenosis Admission Status: Inpatient Order (span 2 midnights) Reason for Inpatient Admission: Generalized weakness due to cervical spinal stenosis Assessment and Plan Assessment: Mr. Garland Solano is a 57 y/o M with PMH of chronic pain, HTN, and cervical spinal stenosis who presented to the hospital on 08/10/22 for generalized weakness, falls, and headache likely due to his known cervical spinal stenosis. Plan: 1. Generalized weakness due to Cervical spinal stenosis of C6-C7. - Outside imaging results faxed over and review. (see imaging for reports) - Initial neurology consultation faxed over, but post-imaging note not faxed over yet. - Bilateral lower extremities weakness > bilateral upper extremities weakness - pt has follow up with Neurosurgery on 08/24/22 to assess surgical candidacy > PT/OT > Cont Gabapentin 1200mg TID > Cont Dilaudid 0.5mg IV q2 hr PRN > Cont Oxy 10mg q4 hr PRN 2. Confusion likely secondary to Hyponatremia > Fluid restriction > Sodium chloride 1gm tab BID > Consider Urine Na workup if continues to have hyponatremia 3. Constipation - last bowel movement 2 days ago, typically is regular > Cont Docusate 100mg BID 4. Hx of HTN > Cont amlopidine 5mg > Cont Clonidine 0.1 mg q4 PRN Dispo: will likely need placement at nursing facility until can be seen for neurosurgery consultation Diet: regular diet DVT PPX: Lovenox Code: Full code Past Lnplwqd-Uceqxw-Cumcwb Hx Past Med/Social Hx: Reviewed Nursing Past Med/Soc Hx, Reviewed and Corrections made Patient Social History Marrital Status: single Employed/Student: unemployed Smoking Status: Former Smoker Past Medical History Surgeries: Abdominal, Joint Replacement Cardiac: Hypertension Neurological: Neuropathy Musculoskeletal: Arthritis, Chronic Back Pain Endocrine: Diabetes, Non-Insulin dep Family History Diabetes Self Care: Independent Functional Cognition: Independent Drive Self: Yes PM&R Allergy/Meds/Data Review Allergies Coded Allergies: meperidine (Verified Allergy, Unknown, TACHYCARDIA, 06/08/22) Home Medications Scheduled Amlodipine Besylate (Amlodipine Besylate), 5 MG PO DAILY, (Reported) Atorvastatin Calcium (Atorvastatin Calcium), 20 MG PO DAILY, (Reported) Bupropion HCl (Bupropion Xl), 300 MG PO DAILY, (Reported) Celecoxib (Celecoxib), 100 MG PO DAILY, (Reported) Cholecalciferol (Vitamin D3) (Vitamin D3), 25 MCG PO DAILY, (Reported) Duloxetine HCl (Duloxetine HCl), 30 MG PO TID, (Reported) Gabapentin (Gabapentin), 1,200 MG PO HS, (Reported) Gabapentin (Gabapentin), 1,200 MG PO 0800,1200, (Reported) Hydroxyzine HCl (Hydroxyzine HCl), 50 MG PO BID, (Reported) Lisinopril (Lisinopril), 20 MG PO DAILY, (Reported) Metformin HCl (Metformin HCl), 500 MG PO BID, (Reported) Multivitamin (Multi-Vitamin Daily), 1 EACH PO DAILY, (Reported) Pantoprazole Sodium (Pantoprazole Sodium), 40 MG PO DAILY, (Reported) Primidone (Mysoline), 50 MG PO TID, (Reported) Timolol Maleate (Timoptic), 1 DROP OU TID, (Reported) Trazodone HCl (Trazodone HCl), 100 MG PO HS, (Reported) Vitamin B Complex (Vitamin B Complex), 1 EACH PO DAILY, (Reported) Scheduled PRN Acetaminophen/Diphenhydramine (Tylenol Pm Ex-Strength Caplet), 2 EACH PO HS PRN for SLEEP, (Reported) Oxycodone HCl (Oxycodone HCl), 15 MG PO QID PRN for PAIN-SEVERE (8-10), (Reported) Current Medications Current Medications Reviewed Review of Systems Constitutional: see HPI, malaise, weakness EENTM: no symptoms reported Respiratory: no symptoms reported Cardiovascular: no symptoms reported Gastrointestinal: no symptoms reported Genitourinary: no symptoms reported Musculoskeletal: back pain, joint pain, muscle pain, muscle stiffness, muscle cramps, muscle twitching, muscle weakness, neck pain Skin: no symptoms reported Psychiatric/Neurological: Anxiety, Depressed All Other Systems Reviewed Negative Unless Noted: Yes Physical Exam Physical Exam Vital Signs Capillary Refill : Height, Weight, BMI Height: '" Weight: lbs. oz. kg; 34.16 BMI Method: General Appearance: WD/WN, Chronically ill, Obese Eyes: Bilateral Eye Normal Inspection, Bilateral Eye PERRL HEENT: PERRL/EOMI, Normal ENT Inspection, Pharynx Normal Neck: Full Range of Motion, Normal Inspection, Non Tender, Supple, Carotid Bruit Respiratory: Chest Non Tender, Lungs Clear, Normal Breath Sounds, No Accessory Muscle Use, No Respiratory Distress Cardiovascular: Regular Rate, Rhythm, No Edema, No Gallop, No JVD, No Murmur, Normal Peripheral Pulses Gastrointestinal: Normal Bowel Sounds, No Organomegaly, No Pulsatile Mass, Non Tender, Soft Back: Normal Inspection, No CVA Tenderness, No Vertebral Tenderness Extremity: Normal Capillary Refill, Normal Inspection, Normal Range of Motion, Non Tender, No Calf Tenderness, No Pedal Edema Neurologic/Psychiatric: Alert, salesperson floor coverings II-XII Norm as Tested, Abnormal Gait, Depressed Affect, Motor Weakness, Sensory Deficit (Bilateral feet) Skin: Normal Color, Warm/Dry Lymphatic: No Adenopathy PM&R Medical Assessment & Plan REHAB/MEDICAL ASSESSMENT AND PLAN: REHAB IMPAIRMENT GROUP: Cervical spine stenosis ETIOLOGIC DIAGNOSIS: Cervical spine stenosis The comorbidities that impact the patients function and/or functional outcome by: Cervical spine stenosis which possibly need surgical resolution, chronic debility, chronic pain narcotic dependent REHAB PLAN: The patient is being admitted to our comprehensive inpatient rehabilitation facility and can tolerate the intensity of service consisting of at least: 180 minutes of therapy a day, 5 out of 7 days a week Rehab treatment will consist of: PT and OT will focus on regaining function with assistive devices and work on increasing stamina and endurance and prevent falls The patient/family has a good understanding of our discharge process and will benefit from an interdisciplinary inpatient rehabilitation program. The patient has potential to make improvement and is in need of at least two of the following multidisciplinary therapies including but not limited to physical, occupational, speech, and prosthetics and orthotics. Additionally the patient will need services from respiratory, nutritional services, wound care, psychology, etc. (Customize this to each patient). Given the patients complex condition and risk of further medical complications, rehabilitation services cannot be safely or effectively provided at a lower level of care such as a jail facility. BARRIERS TO DISCHARGE: Severe weakness and fall risk ESTIMATED LOS: 7 days DISPOSITION: Home with daughter RELEVANT CHANGES SINCE PREADMISSION SCREENING: I have compared the patients medical and functional status at the time of the preadmission screening and there are: No changes PROGNOSIS: Fair REHABILITATION GOALS: 1. PT and OT will focus on regaining function with assistive devices and work on increasing stamina and endurance and prevent falls All the above goals were reviewed with the patient and he/she is in agreement. By signing this document, I acknowledge that I have personally performed a full physical examination on this patient within 24 hours of admission to this inpatient rehabilitation facility and have determined the patient to be able to tolerate the above course of treatment at an intensive level for a reasonable period of time. I will be completing a detailed individualized Plan of Care for this patient by day #4 of the patients stay based upon the Preadmission Screen, the Post-Admission Evaluation, and the therapy evaluations. Admission Dx/Comorbidities: (1) Cervical spinal stenosis Status: Acute ICD Codes: M48.02 - Spinal stenosis, cervical region (2) Generalized weakness Status: Acute ICD Codes: R53.1 - Weakness (3) Hyponatremia Status: Acute ICD Codes: E87.1 - Hypo-osmolality and hyponatremia (4) Renal insufficiency Status: Acute ICD Codes: N28.9 - Disorder of kidney and ureter, unspecified (5) Essential hypertension ICD Codes: I10 - Essential (primary) hypertension Assessment/Plan Assessment and Plan Assess & Plan/Chief Complaint Patient resulted labs reviewed. Imaging: Reviewed Imaging Films, Reviewed Imaging Report Imaging Head CT 08/11/22: IMPRESSION: No identified acute intracranial abnormality. Bilateral Knee Xray 08/11/22: IMPRESSION: 1. No acute fracture or dislocation in the bilateral knees. 2. Bilateral prior total knee arthroplasties. No periprosthetic fracture or loosening. 3. Bilateral small joint effusions in the knees. Bilateral pelvis/hip xray 08/11/22: IMPRESSION: No identified acute bony abnormality of the pelvis or either hip. Chest Xray 08/11/22: IMPRESSION: No identified acute cardiopulmonary abnormality. OUTSIDE IMAGING REPORTS MRI Brain 06/10/22: 1. Few small patchy elina of T2 whte matter hyperintensity in the periventricular and subcortical white matter likley related to chronic microvascular injury. 2. No acute intracranial process. MRI C Spine 06/10/22: 1. Severe degenerative changes noted in the mid to lower cervical spine with multilevel moderate to severe spinal stenosis, most prominent at C6-C7 level. 2. Cord flattening, probably cord gliosis/edema at C6-C7. 3. Marrow edema/abnormal signal noted at several levels in the the cervical spine from C3 through C7. Would favor discogenic marrow changes; however, infection or neoplasm not completely excluded. MRI Thoracic spine 06/10/22: 1. Mild sponylosis and disc bulging at several levels in the mid to lower thoracic spine. No level with disc herniation or spinal stenosis is noted. 2. Heterogenous marrow signal in thoracic spine with focal T10 vertebral body lesion noted. CT Thoracic spine w/out contrast 06/11/22: 1. No destructive bone lesion is visible in the T10 vertebral body where an indeterminate area of abnormal signal is identified on recent MRI of thoracic spine. Assessment/Plan Admission Diagnosis Weakness and hx of falls in setting of cervical spinal stenosis Admission Status: Inpatient Order (span 2 midnights) Reason for Inpatient Admission: Generalized weakness due to cervical spinal stenosis Assessment and Plan Assessment: Mr. Garland Solano is a 57 y/o M with PMH of chronic pain, HTN, and cervical spinal stenosis who presented to the hospital on 08/10/22 for generalized weakness, falls, and headache likely due to his known cervical spinal stenosis. Plan: 1. Generalized weakness due to Cervical spinal stenosis of C6-C7. - Outside imaging results faxed over and review. (see imaging for reports) - Initial neurology consultation faxed over, but post-imaging note not faxed over yet. - Bilateral lower extremities weakness > bilateral upper extremities weakness - pt has follow up with Neurosurgery on 08/24/22 to assess surgical candidacy > PT/OT > Cont Gabapentin 1200mg TID > Cont Dilaudid 0.5mg IV q2 hr PRN > Cont Oxy 10mg q4 hr PRN 2. Confusion likely secondary to Hyponatremia > Fluid restriction > Sodium chloride 1gm tab BID > Consider Urine Na workup if continues to have hyponatremia 3. Constipation - last bowel movement 2 days ago, typically is regular > Cont Docusate 100mg BID 4. Hx of HTN > Cont amlopidine 5mg > Cont Clonidine 0.1 mg q4 PRN Dispo: will likely need placement at nursing facility until can be seen for neurosurgery consultation Diet: regular diet DVT PPX: Lovenox Code: Full code Assessment: Cervical spine stenosis causing severe weakness and neurological deficits Hyponatremia Hypertension Status post acute kidney injury Dehydration Chronic pain Narcotic dependence Narcotic bowel with current constipation Plan: PT OT regimen Bowel regimen Fluid restriction PATSY COONEY DO Aug 13, 2022 10:17
[2022-08-13] MEDS ORDERED: NON-FORMULARY MEDICATION 1 EA EA (Acetaminophen/Diphenhydramine (Tylenol Pm Ex-Strength Ca PO PRN (10:30)
--- NOTE | 2022-08-13 10:43 | Physical Therapy Evaluation ---
PT Evaluation-General Medical Diagnosis Admission Date Aug 13, 2022 at 09:00 Medical Diagnosis: Cervical spinal stenosis Onset Date: Aug 11, 2022 Therapy Diagnosis Therapy Diagnosis: impaired mobility, strength, endurance Precautions Precautions/Isolations: Fall Prevention, Standard Precautions, Pressure Ulcer Referral Physician: Kira Byrnes DO Reason for Referral: Evaluation/Treatment Medical History Pertinent Medical History: DM, HTN, Neuropathy Reviewed History: Yes Social History Home: Single Level (trailer home) Current Living Status: Children (Daughter) Entry Into Home: Ramp, Stairs With Railing PT Steps Into Home: 4 Prior Prior Level of Function SCALE: Activities may be completed with or without assistive devices. 2-Zgewlxrbfq-hynwjmb completes the activity by him/herself with no assistance from a helper. 5-Set-up or Clean-up Assistance-helper sets up or cleans up; patient completes activity. [place] assists only prior to or following the activity. 4-Supervision or Touching Assistance-helper provides verbal cues and/or touching/steadying and/or contact guard assistance as patient completes a ctivity. Assistance may be provided throughout the activity or intermittently. 3-Partial/Moderate Assistance-helper does LESS THAN HALF the effort. [place] lifts, holds or supports trunk or limbs, but provides less than half the effort. 2-Substantial/Maximal Assistance-helper does MORE THAN HALF the effort. [place] lifts or holds trunk or limbs and provides more than half the effort. 6-Siacehtks-opuaee does ALL the effort. Patient does none of the effort to complete the activity. Or, the assistance of 2 or more helpers is required for the patient to complete the activity. If activity was not attempted, code reason: 7-Patient Refused. 9-Not Applicable-not attempted and the patient did not perform the activity before the current illness, exacerbation or injury. 10-Not Attempted due to Environmental Limitations-(lack of equipment, weather restraints, etc.). 88-Not Attempted due to Medical Conditions or Safety Concerns. Bed Mobility: 6 Transfers (B,C,W/C): 6 Gait: 6 Stairs: 6 Indoor Mobility (Ambulation): Independent Stairs: Independent used a SPC previously PT Evaluation-Current Subjective Patient sitting EOB pre tx, agrees to PT, has 8/10 pain in right knee, nurse notified of pain. Will be co-treating with OT due to poor patient mobility, strength, endurance, severe debility and severe pain with activity, coordinate UE and LE with activity, safety and reduce risk of falls. Pain Section J - Health Conditions 1. Rarely or not at all 2. Occasionally 3. Frequently 4. Almost constantly 8. Unable to answer Pain Effect on Sleep: 3 Pain Interference with Therapy: 3 Pain Interference w/Day-to-Day: 3 Pt/Family Goals to be independent at home Objective Patient Orientation: Person, Place, Situation ROM/Strength ROM Lower Extremities WNL Strength Lower Extremities LLE (hip flexion 3/5, knee flexion 4/5, knee extension 4/5, dorsiflexion 4/5), RLE (hip flexion 3/5, knee flexion and extension not tested due to pain, dorsiflexion 4/5) Neuromuscular (Tone, Coordination, Reflexes) Coordination testing with izaguirre slide, unable to do well with RLE due to severe right knee pain, fair on the left side. Patient has slight tremors. Sensory Vision: Hearing: Functional Sensation Right Lower Extremit: Intact Sensation Left Lower Extremity: Intact Transfers Roll Left & Right (QC): 6 Sit to Lying (QC): 6 Lying to Sitting/Side of Bed(Q: 6 Sit to Stand (QC): 4 Chair/Mez-cf-Ielwj Xfer(QC): 4 Toilet Transfer (QC): 4 Car Transfer (QC): 4 Patient performs rolling and supine <-> sit with independence, sit <-> stand and transfers CGA, car transfer CGA. Patient needs occasional cues for hand placement and safety, sometimes a little unsteady after standing but recovers when he grabs the walker. Gait Does the Patient Walk?: Yes Mode of Locomotion: Walk Anticipated Mode of Locomotion: Walk Walk 10 feet (QC): 4 Walk 50 ft with 2 Turns(QC): 4 Walk 150 ft (QC): 88 Walking 10ft/uneven surface-QC: 4 Distance: 100', 50' Gait Assistive Device: FWW Comments/Gait Description Patient can ambulate 100' with a rolling walker with CGA (including 50' with at least 2 turns of 90 degrees and 10' over an uneven surface), gait is slow and antalgic, no knee buckling but slightly unsteady, shaky. Wheelchair Training Does the Pt Use a Wheelchair?: Yes Wheel 50 ft with 2 turns (QC): 3 Wheel 150 ft (QC): 88 Type of Wheelchair: Manual 100' min assist Stairs #of Steps: 1 1 Step (curb) (QC): 4 4 Steps (QC): 88 12 Steps (QC): 88 Walking Assistive Device: Walker Patient can go up and down 1 steps using a rolling walker with CGA, cues for foot placement and safety Balance Sitting Static: Normal Sitting Dynamic: Normal Standing Static: Fair Standing Dynamic: Poor Picking up an Object (QC): 4 (CGA using a food and beverage coordinator) Special Test Comments Tinetti Treatment Patient also performed standing and seated UE activity to work on standing balance and strengthening and seated trunk strengthening and posture. PT performed bed mobility and transfers, ambulation, stair training, standing and positioning during UE activity, standing in restroom for ADL's, OT performed ADL's, UE activity, UE positioning and safety during activity. Assessment/Needs Patient in recliner post tx with nurse call, phone, tray, all needs met. Patient wanted to stop tx due to severe knee pain and increasing weakness, nurse notified. Patient has impaired mobility, strength, endurance. Rehab Potential: Fair PT Short Term Goals Short Term Goals Time Frame: Aug 20, 2022 Roll Left & Right: 6 Sit to lyin Lying to sitting on side of be: 6 Sit to stand: 4 (SBA) Chair/ino-id-oqxmi transfer: 4 (SBA) Walk 10 feet: 4 (SBA) Walk 50 feet with two turns: 4 (SBA) Walk 150 feet: 4 (SBA) PT Food Management Aide Goals Custodial Goals PT Food Management Aide Goals Time Frame: Sep 03, 2022 Scoring Section J - Health Conditions 1. Rarely or not at all 2. Occasionally 3. Frequently 4. Almost constantly 8. Unable to answer Roll Left to Right (QC): 6 Sit to Lying (QC): 6 Lying-Sitting on Side/Bed(QC): 6 Sit to Stand (QC): 6 Chair/Dfo-nw-Tksiw Xfer(QC): 6 Car Transfer (QC): 6 Does the Patient Walk: Yes Walk 10 feet (QC): 6 Walk 10ft-Uneven Surface(QC): 6 Walk 50ft with 2 Turns (QC): 6 Walk 150 ft (QC): 6 Wheel 50 feet with 2 turns (QC: 9 1 Step (curb) (QC): 4 4 Steps (QC): 4 12 Steps (QC): 88 Picking up an Object (QC): 4 (SBA) toilet transfer independent, WC 150' (9) PT Plan Problem List Problem List: Activity Tolerance, Functional Strength, Safety, Balance, Gait, Transfer, ROM Treatment/Plan Treatment Plan: Continue Plan of Care Treatment Plan: Education, Functional Activity Rogers, Functional Strength, Group Therapy, Gait, Safety, Therapeutic Exercise, Transfers Treatment Duration: Sep 03, 2022 Frequency: At least 5 of 7 days/Wk (IRF) Estimated Hrs Per Day: 1.5 hours per day Patient and/or Family Agrees t: Yes Safety Risks/Education Patient Education: Gait Training, Transfer Techniques, Steps, Correct Positioning, Safety Issues Teaching Recipient: Patient Teaching Methods: Demonstration, Discussion Response to Teaching: Reinforcement Needed Discharge Recommendations Plan Patient will perform bed mobility and transfer training, balance and endurance training, functional strengthening, stair training, gait training, and education, to improve functional mobility and independence at home. Therapy Discharge Recommendati: Scheduled Assistance, Home & Family, Post Acute PT Time/GCodes Time In: 929 Time Out: 1030 Total Billed Treatment Time: 60 Total Billed Treatment 1 visit EVM 10' EX 15' FA 35' PT eval from , co-treat from [id number] [facility] VO[facility] PT Aug 13, 2022 10:43
[2022-08-13] MEDS: ACETAMINOPHEN 325 MG TABLET PO PRN (10:48)
[2022-08-13] MEDS ORDERED: FLU QUADRIvalent (6 months+) 60 mcg/0.5 ml 2022-23 (Fluzone) IM ONE (11:00)
--- NOTE | 2022-08-13 11:29 | Physical Therapy Daily Note ---
PT Daily Note-Current Subjective Patient lying in bed pre-tx, agrees to PT. Patient reports throbbing pain most severe in R knee. Pain Location: Right, Joint Location Body Site: Knee (Most severe in R knee.) Pain Description: Throbbing Section J - Health Conditions 1. Rarely or not at all 2. Occasionally 3. Frequently 4. Almost constantly 8. Unable to answer Pain Effect on Sleep: 3 Pain Interference with Therapy: 3 Pain Interference w/Day-to-Day: 3 Appearance Patient lying in bed post-tx with table, call phone, and remote next to bed. All needs met. Mental Status Patient Orientation: Person, Place, Situation Transfers SCALE: Activities may be completed with or without assistive devices. 4-Fsrxfumazz-ikfeymg completes the activity by him/herself with no assistance from a helper. 5-Set-up or Clean-up Assistance-helper sets up or cleans up; patient completes activity. [place] assists only prior to or following the activity. 4-Supervision or Touching Assistance-helper provides verbal cues and/or touching/steadying and/or contact guard assistance as patient completes activity. Assistance may be provided throughout the activity or intermittently. 3-Partial/Moderate Assistance-helper does LESS THAN HALF the effort. [place] li fts, holds or supports trunk or limbs, but provides less than half the effort. 2-Substantial/Maximal Assistance-helper does MORE THAN HALF the effort. [place] lifts or holds trunk or limbs and provides more than half the effort. 7-Anwmgyyqd-qfpxjp does ALL the effort. Patient does none of the effort to complete the activity. Or, the assistance of 2 or more helpers is required for the patient to complete the activity. If activity was not attempted, code reason: 7-Patient Refused. 9-Not Applicable-not attempted and the patient did not perform the activity before the current illness, exacerbation or injury. 10-Not Attempted due to Environmental Limitations-(lack of equipment, weather restraints, etc.). 88-Not Attempted due to Medical Conditions or Safety Concerns. Gait Training Does the Patient Walk?: No and Walking Goal IS indicated Wheelchair Training Does the Pt Use a Wheelchair?: No Exercises Supine Ex: Ankle pumps (15 reps each ankle), Hip abd/add (15 reps squeezing ball, 15 reps opening legs against gait belt resistance) Supine Reps: 15 Treatments LE exercise Assessment Current Status: Poor Progress Patient still has lots of throbbing pain in R knee which restricts him from doing more activity without taking breaks. PT Short Term Goals Short Term Goals Time Frame: Aug 20, 2022 Roll Left & Right: 6 Sit to lyin Lying to sitting on side of be: 6 Sit to stand: 4 (SBA) Chair/mld-if-evaru transfer: 4 (SBA) Walk 10 feet: 4 (SBA) Walk 50 feet with two turns: 4 (SBA) Walk 150 feet: 4 (SBA) PT Field Test Engineer Goals Field Test Engineer Goals PT Field Test Engineer Goals Time Frame: Sep 03, 2022 Roll Left & Right (QC): 6 Sit to Lying (QC): 6 Lying-Sitting on Side/Bed(QC): 6 Sit to Stand (QC): 6 Chair/Jgr-mt-Crujp Xfer(QC): 6 Toilet Transfer (QC): 6 Car Transfer (QC): 6 Does the Patient Walk: Yes Walk 10 feet (QC): 6 Walk 50ft with 2 Turns (QC): 6 Walk 150 ft (QC): 6 Walking 10ft on Uneven Surface: 6 1 Step (curb) (QC): 4 4 Steps (QC): 4 12 Steps (QC): 88 Picking up an Object (QC): 4 (SBA) Wheel 50 feet with 2 turns (QC: 9 Wheel 150 feet: 9 PT Plan Problem List Problem List: Activity Tolerance, Functional Strength, Safety, Balance, Gait, Transfer, ROM Treatment/Plan Treatment Plan: Continue Plan of Care Treatment Plan: Education, Functional Activity Rogers, Functional Strength, Gait, Safety, Therapeutic Exercise, Transfers Treatment Duration: Sep 03, 2022 Frequency: At least 5 of 7 days/Wk (IRF) Estimated Hrs Per Day: 1.5 hours per day Patient and/or Family Agrees t: Yes Safety Risks/Education Patient Education: Correct Positioning, Safety Issues Teaching Recipient: Patient Teaching Methods: Demonstration, Discussion Response to Teaching: Verbalize Understanding, Reinforcement Needed Time/GCodes Time In: 1100 Time Out: 1115 Total Billed Treatment Time: 15 Total Billed Treatment 1 visit EX 15min HILL VOGT PT Aug 13, 2022 11:29
[2022-08-13] MEDS ORDERED: GABAPENTIN 600 MG (NEURONTIN) TAB PO SCH (12:00)
[2022-08-13] MEDS: GABAPENTIN 600 MG (NEURONTIN) TAB PO SCH (12:02)
[2022-08-13] MEDS: DULoxetine 30 MG (CYMBALTA) CAP PO SCH ×2 (12:03→21:29)
[2022-08-13] MEDS: PRIMIDONE 50 MG TAB (MYSOLINE) PO SCH ×2 (12:03→21:27)
[2022-08-13] MEDS: TIMOLOL MALEATE 0.5% 5 ML (TIMOPTIC) BTL OU SCH ×2 (12:05→21:32)
--- NOTE | 2022-08-13 15:23 | ST Cognitive Linguistic Eval ---
Speech Evaluation-General Medical Diagnosis Cervical Spinal Stenosis Onset Date: Aug 11, 2022 Therapy Diagnosis Therapy Diagnosis: Impaired Cognitive Linguistic Skills Precautions Precautions: Fall Precautions/Isolations: Fall Prevention, Standard Precautions Referral Referring Physician: Dr. Byrnes Reason for Referral: Evaluation/Treatment Medical History Pertinent Medical History: DM, HTN, Neuropathy Current History The patient is a 57 year-old male with a past medical history significant for DM, HTN, and neuropathy, who arrived to the ED by ambulance due to balance deficits and multiple falls within the last couple days. MRI C Spine 06/10/22: 1. Severe degenerative changes noted in the mid to lower cervical spine with multilevel moderate to severe spinal stenosis, most prominent at C6-C7 level. 2. Cord flattening, probably cord gliosis/edema at C6-C7. 3. Marrow edema/abnormal signal noted at several levels in the the cervical spine from C3 through C7. Would favor discogenic marrow changes; however, infe ction or neoplasm not completely excluded. Reviewed History: Yes Social History Current Living Status: Children (Daughter) Speech PLF-Current Status Prior Level of Function The patient stated he has experienced difficulty with anomia and paraphasia (phoneme) for the past two months (progressively worsening). Per patient, "Sometimes I can't think of the word and then it just comes out all jumbled." The patient denied recent changes to his cognition, speech, or swallowing. Subjective The patient was seated upright in his recliner, awake and alert, upon entrance to his room by the clinician. The patient greeted the clinician appropriately and was agreeable to participation in the cognitive linguistic assessment. Language Eval: Auditory Comprehends Simple Yes/No Ques: Functional Indent/Objects Multiple Rey: Functional Follows 1-Step Commands: Functional Follows General Conversations: Functional Language Eval: Verbal Language Completes Spontaneous Greeting: Functional Produces Auto, Serial Info: Functional Imitates Simple Words/Phrases: Functional Word Finding: Mild Requests Basic Needs: Functional States Basic Personal Info: Functional Language Evaluation: Reading Follows Simple Written Direct: Functional Language Evaluation: Writing Writes to Simple Dictation: Functional Cognitive Patient Orientation The patient was oriented to self, location, month, and day of the week. The patient stated the year was "2022." Objective Cognitive Domain Attention: WNL Memory: Mild Problem Solving: Mild Executive Functions: Mild Composite Severity Rating: Mild Clock Drawing Severity Rating: WNL Objective Formal/Standardized Tests [employer] Mental Status Examination (UMS) Results The patient demonstrated a result of +20/30 on the SLUMS correlating to a mild neurocognitive impairment. Oral Motor/Speech Production The patient does not display dysarthria or apraxia of speech at this time. The patient is 100% intelligible in known and unknown contexts. Impression The patient demonstrated a mild neurocognitive impairment, most notably in the areas of memory and word-finding. Speech Patient Assess Expression of Ideas/Wants: Expression (4) Understanding Verbal Content: Understands (4) Brief Interview-Mental Status: Yes Repetition of Three Words: Three (3) Temporal Orientation: Year: Missed by 1 year (2) Temporal Orientation: Month: Accurate within 5 days(2) Temporal Orientation: Day: Correct (1) Recall : Wear to say "Sock": Yes, no cue required (2) Recall : Color: Yes, no cue required (2) Recall : Bed: Yes,after cueing (1) Memory/Recall Ability: Current season, That he or she is in a hsp/hsp unit Speech Short Term Goals Short Term Goals Short Term Goals 1. The patient will demonstrate 90% accuracy with word-finding exercises with mild clinician verbal cueing. Time Frame-STG: One Week. Speech Usp Goals Nipping Machine Operator Goals 1. The patient will demonstrate an improvement with cognitive linguistic skills for safe discharge to the least restrictive environment. Time Frame: Ten Days. Speech-Plan Treatment Plan Speech Therapy Treatment Plan: Continue Plan of Care Treatment Duration: Aug 23, 2022 Frequency: Modified Program (IRF) (Four to Five Times per Week.) Estimated Hrs Per Day: .5 hour per day Rehab Potential: Fair Safety Risks/Education Teaching Recipient: Patient Teaching Methods: Discussion Response to Teaching: Verbalize Understanding Education Topics Provided: Results, Recommendations, Plan of Care Time Speech Therapy Time In: 12:35 Speech Therapy Time Out: 13:05 Total Billed Time: 30 Billed Treatment Time 1, VIMAL SANCHEZ [facility] ST Aug 13, 2022 15:23
[2022-08-13] MEDS: LORazepam 0.5 MG (ATIVAN) TABLET PO PRN ×2 (17:49→23:20)
[2022-08-13 19:23] VITALS: BP 151/85
[2022-08-13] MEDS ORDERED: DOCUSATE SODIUM 100 MG (COLACE) CAP PO SCH (21:00)
[2022-08-13] MEDS ORDERED: ENOXAPARIN 40 MG/0.4 ML (LOVENOX) SYR SC SCH (21:00)
[2022-08-13] MEDS ORDERED: GABAPENTIN 400 MG (NEURONTIN) CAP PO SCH (21:00)
[2022-08-13] MEDS: metFORMIN 500 MG (GLUCOPHAGE) TAB PO SCH (21:27)
[2022-08-13] MEDS: ENOXAPARIN 40 MG/0.4 ML (LOVENOX) SYR SC SCH (21:27)
[2022-08-13] MEDS: SODIUM CHLORIDE 1 GM TABLET PO SCH (21:27)
[2022-08-13] MEDS: GABAPENTIN 400 MG (NEURONTIN) CAP PO SCH (21:28)
[2022-08-13] MEDS: traZODone 100 MG (DESYREL) TAB PO SCH (21:29)
[2022-08-13] MEDS: hydrOXYzine (VISTARIL/ATARAX) 25 MG capsule/tablet PO SCH (21:29)
[2022-08-13] MEDS: buPROPion SR 150 MG (WELLBUTRIN SR) TAB PO SCH (21:30)
[2022-08-14 05:44] LABS: BASOPHILS # (AUTO) 0.1 10^3/uL (0.0-0.1); BASOPHILS % (AUTO) 1 % (0-10); EOSINOPHILS # (AUTO) 0.3 10^3/uL (0.0-0.3); EOSINOPHILS % (AUTO) 5 % (0-10); HEMATOCRIT 29 % (40-54); HEMOGLOBIN 9.6 g/dL (13.3-17.7); LYMPHOCYTES % (AUTO) 15 % (12-44); MEAN CORPUSCULAR HEMOGLOBIN 32 pg (25-34); MEAN CORPUSCULAR HGB CONC 33 g/dL (32-36); MEAN CORPUSCULAR VOLUME 97 fL (80-99); MEAN PLATELET VOLUME 9.1 fL (9.0-12.2); MONOCYTES # (AUTO) 0.8 10^3/uL (0.0-1.0); MONOCYTES % (AUTO) 13 % (0-12); NEUTROPHILS # (AUTO) 4.3 10^3/uL (1.8-7.8); NEUTROPHILS % (AUTO) 66 % (42-75); PLATELET COUNT 280 10^3/uL (130-400); WHITE BLOOD COUNT 6.5 10^3/uL (4.3-11.0)
[2022-08-14 06:01] LABS: ALBUMIN 3.3 GM/DL (3.2-4.5)
[2022-08-14 06:02] LABS: POTASSIUM 4.3 MMOL/L (3.6-5.0)
[2022-08-14 06:03] LABS: CALCIUM 8.8 MG/DL (8.5-10.1)
[2022-08-14 06:04] LABS: TOTAL PROTEIN 5.9 GM/DL (6.4-8.2)
[2022-08-14 06:06] LABS: BILIRUBIN,TOTAL 0.4 MG/DL (0.1-1.0)
[2022-08-14 06:08] LABS: CREATININE SERUM 1.1 MG/DL (0.60-1.30)
--- NOTE | 2022-08-14 07:12 | PM&R Progress Note ---
Subjective HPI/CC On Admission Date Seen by Provider: Aug 14, 2022 Time Seen by Provider: 08:30 Subjective/Events-last exam 08/14/2022: No major issues Less weakness Improved hyponatremia Neuropathy discussed clinical team lead narcs management discussed Review of Systems General: Fatigue, Malaise Objective Exam Vital Signs Vital Signs Date Time Temp Pulse Resp B/P (MAP) Pulse Ox O2 Delivery O2 Flow Rate FiO2 08/14/22 20:01 38.1 08/14/22 18:16 Room Air 08/14/22 07:42 69 20 161/92 (115) 92 Capillary Refill : General Appearance: WD/WN, Chronically ill, Obese HEENT: PERRL/EOMI, Normal ENT Inspection, Pharynx Normal Neck: Full Range of Motion, Normal Inspection, Non Tender, Supple, Carotid Bruit Respiratory: Chest Non Tender, Lungs Clear, Normal Breath Sounds, No Accessory Muscle Use, No Respiratory Distress Cardiovascular: Regular Rate, Rhythm, No Edema, No Gallop, No JVD, No Murmur, Normal Peripheral Pulses Gastrointestinal: Normal Bowel Sounds, No Organomegaly, No Pulsatile Mass, Non Tender, Soft Back: Normal Inspection, No CVA Tenderness, No Vertebral Tenderness Extremity: Normal Capillary Refill, Normal Inspection, Normal Range of Motion, Non Tender, No Calf Tenderness, No Pedal Edema Neurologic/Psychiatric: Alert, technology coordinator II-XII Norm as Tested, Abnormal Gait, Depressed Affect, Motor Weakness, Sensory Deficit (Bilateral feet) Skin: Normal Color, Warm/Dry Lymphatic: No Adenopathy Results/Procedures Lab Laboratory Tests 08/14/22 05:37 Patient resulted labs reviewed. FIM Transfers Therapy Code Descriptions/Definitions Functional [place] Measure: 0=Not Assessed/NA 4=Minimal Assistance 1=Total Assistance 5=Supervision or Setup 2=Maximal Assistance 6=Modified [place] 3=Moderate Assistance 7=Complete IndependenceSCALE: Activities may be completed with or without assistive devices. 9-Zonvuoycgg-fxeefzi completes the activity by him/herself with no assistance from a helper. 5-Set-up or Clean-up Assistance-helper sets up or cleans up; patient completes activity. [place] assists only prior to or following the activity. 4-Supervision or Touching Assistance-helper provides verbal cues and/or touching/steadying and/or contact guard assistance as patient completes activity. Assistance may be provided throughout the activity or intermittently. 3-Partial/Moderate Assistance-helper does LESS THAN HALF the effort. [place] lifts, holds or supports trunk or limbs, but provides less than half the effort. 2-Substantial/Maximal Assistance-helper does MORE THAN HALF the effort. [place] lifts or holds trunk or limbs and provides more than half the effort. 7-Pfmrunspi-muffqg does ALL the effort. Patient does none of the effort to complete the activity. Or, the assistance of 2 or more helpers is required for the patient to complete the activity. If activity was not attempted, code reason: 7-Patient Refused. 9-Not Applicable-not attempted and the patient did not perform the activity before the current illness, exacerbation or injury. 10-Not Attempted due to Environmental Limitations-(lack of equipment, weather restraints, etc.). 88-Not Attempted due to Medical Conditions or Safety Concerns. Roll Left to Right (QC): 6 Sit to Lying (QC): 6 Sit to Stand (QC): 4 Chair/Zel-us-Fezud Xfer(QC): 4 Car Transfer (QC): 4 Gait Training Does the Patient Walk?: No and Walking Goal IS indicated Walk 10 feet (QC): 4 Walk 50 ft with 2 Turns(QC): 4 Walk 150 ft (QC): 88 Walking 10ft/uneven surface-QC: 4 Gait Assistive Device: FWW Wheelchair Training Does the Pt Use a Wheelchair?: No Wheel 50 ft with 2 turns (QC): 3 Wheel 150 ft (QC): 88 Type of Wheelchair: Manual Stair Training #of Steps: 1 1 Step (curb) (QC): 4 4 Steps (QC): 88 12 Steps (QC): 88 Balance Picking up an Object (QC): 4 (CGA using a liquor runner) ADL-Treatment Eating (QC): 4 (pt reports using heavy/built up silverware at home due to temors) Oral Hygiene (QC): 5 (in standing) Shower/Bathe Self (QC): 7 Upper Body Dressing (QC): 5 Lower Body Dressing (QC): 3 (min assist for threading through correct leg hole) On/Off Footwear (QC): 2 (due to lck of ROM, cervical precautions at therapists discresion, and pain) Toileting Hygiene (QC): 4 (per clinical judgment) Assessment/Plan Assessment and Plan Assess & Plan/Chief Complaint Patient resulted labs reviewed. Imaging: Reviewed Imaging Films, Reviewed Imaging Report Imaging Head CT 08/11/22: IMPRESSION: No identified acute intracranial abnormality. Bilateral Knee Xray 08/11/22: IMPRESSION: 1. No acute fracture or dislocation in the bilateral knees. 2. Bilateral prior total knee arthroplasties. No periprosthetic fracture or loosening. 3. Bilateral small joint effusions in the knees. Bilateral pelvis/hip xray 08/11/22: IMPRESSION: No identified acute bony abnormality of the pelvis or either hip. Chest Xray 08/11/22: IMPRESSION: No identified acute cardiopulmonary abnormality. OUTSIDE IMAGING REPORTS MRI Brain 06/10/22: 1. Few small patchy elina of T2 whte matter hyperintensity in the periventricular and subcortical white matter likley related to chronic microvascular injury. 2. No acute intracranial process. MRI C Spine 06/10/22: 1. Severe degenerative changes noted in the mid to lower cervical spine with multilevel moderate to severe spinal stenosis, most prominent at C6-C7 level. 2. Cord flattening, probably cord gliosis/edema at C6-C7. 3. Marrow edema/abnormal signal noted at several levels in the the cervical spine from C3 through C7. Would favor discogenic marrow changes; however, infection or neoplasm not completely excluded. MRI Thoracic spine 06/10/22: 1. Mild sponylosis and disc bulging at several levels in the mid to lower tho racic spine. No level with disc herniation or spinal stenosis is noted. 2. Heterogenous marrow signal in thoracic spine with focal T10 vertebral body lesion noted. CT Thoracic spine w/out contrast 06/11/22: 1. No destructive bone lesion is visible in the T10 vertebral body where an indeterminate area of abnormal signal is identified on recent MRI of thoracic spine. Assessment/Plan Admission Diagnosis Weakness and hx of falls in setting of cervical spinal stenosis Admission Status: Inpatient Order (span 2 midnights) Reason for Inpatient Admission: Generalized weakness due to cervical spinal stenosis Assessment and Plan Assessment: Mr. Garland Solano is a 57 y/o M with PMH of chronic pain, HTN, and cervical spinal stenosis who presented to the hospital on 08/10/22 for generalized weakness, falls, and headache likely due to his known cervical spinal stenosis. Plan: 1. Generalized weakness due to Cervical spinal stenosis of C6-C7. - Outside imaging results faxed over and review. (see imaging for reports) - Initial neurology consultation faxed over, but post-imaging note not faxed o [facility] yet. - Bilateral lower extremities weakness > bilateral upper extremities weakness - pt has follow up with Neurosurgery on 08/24/22 to assess surgical candidacy > PT/OT > Cont Gabapentin 1200mg TID > Cont Dilaudid 0.5mg IV q2 hr PRN > Cont Oxy 10mg q4 hr PRN 2. Confusion likely secondary to Hyponatremia > Fluid restriction > Sodium chloride 1gm tab BID > Consider Urine Na workup if continues to have hyponatremia 3. Constipation - last bowel movement 2 days ago, typically is regular > Cont Docusate 100mg BID 4. Hx of HTN > Cont amlopidine 5mg > Cont Clonidine 0.1 mg q4 PRN Dispo: will likely need placement at nursing facility until can be seen for neurosurgery consultation Diet: regular diet DVT PPX: Lovenox Code: Full code Assessment: Cervical spine stenosis causing severe weakness and neurological deficits Hyponatremia Hypertension Status post acute kidney injury Dehydration Chronic pain Narcotic dependence Narcotic bowel with current constipation Plan: PT OT regimen Bowel regimen Fluid restriction 08/14/2022: Monitor pain Aggressive therapy (1) Cervical spinal stenosis Status: Acute (2) Generalized weakness Status: Acute (3) Hyponatremia Status: Acute (4) Renal insufficiency Status: Acute (5) Essential hypertension PATSY COONEY DO Aug 14, 2022 07:12
--- NOTE | 2022-08-14 07:12 | Individualized Plan of Care ---
Individualized Plan of Care Rehab Nursing IPOC Order Admission Date Aug 13, 2022 at 09:00 Current Orders Orders Admission Order(Inpt,Obs,Sdc) (08/13/22 06:11) Vital Signs: Per Unit Policy ( 08,16,00 (08/13/22 06:11) Navid Truong (08/13/22 06:11) Sequential Compression Device (08/13/22 06:11) Pickle Pumper-Inpt Rehab Con (08/13/22 06:11) Rehab Nursing Orders-Ipoc (08/13/22 06:11) Physical Therapy Rehab Orders (08/13/22 06:11) Occupational Therapy Rehab Ord (08/13/22 06:11) Speech Therapy Rehab Orders (08/13/22 06:11) Cbc With Automated Diff (08/14/22 06:00) Comprehensive Metabolic Panel (08/14/22 06:00) Precautions (Aru) (08/13/22 06:11) Weekly Weight WEEK (08/13/22 06:11) Rehab-Intensity Of Therapy (08/13/22 06:11) Initiate Admission Nursing Pro .admission (08/13/22 06:11) Alprazolam Tablet (Xanax Tablet) (08/13/22 06:15) Calcium Carbonate Chew Tablet (Antacid C (08/13/22 06:15) Diphenhydramine Tablet (Benadryl Tablet) (08/13/22 06:15) Docusate Sodium Capsule (Colace Capsule) (08/13/22 09:00) Docusate Sodium Capsule (Colace Capsule) (08/13/22 06:15) Bisacodyl Suppository (Dulcolax Supposit (08/13/22 06:15) Lactulose Oral Solution (Enulose Oral So (08/13/22 06:15) Na Phos/Na Biphos Enema (Fleet Enema Donte (08/13/22 06:15) Guaifenesin/Codeine Syrup (Robitussin Ac (08/13/22 06:15) Loperamide Tablet (Imodium Tablet) (08/13/22 06:15) Enoxaparin Injection (Lovenox Injection) (08/13/22 21:00) Melatonin Tablet (Melatonin Tablet) (08/13/22 06:15) Polyethylene Glycol Powder Pkt (Miralax (08/13/22 09:00) Ondansetron Oral Dissolve Tab (Zofran (08/13/22 06:15) Senna S Tablet (Senokot S Tablet) (08/13/22 09:00) Acetaminophen Tablet/Caplet (Tylenol T (08/13/22 06:15) Code/Resuscitation (08/13/22 06:11) Initiate Admission Nursing Pro .admission (08/13/22 06:11) Admission Arrival Bed Request (08/13/22 09:02) Fluid Restriction (08/13/22 10:11) General/Regular (08/13/22 Lunch) Diphenhydramine Injection (Benadryl Inje (08/13/22 10:15) Diphenhydramine Tablet (Benadryl Tablet) (08/13/22 10:15) Docusate Sodium Capsule (Colace Capsule) (08/13/22 21:00) Bisacodyl Suppository (Dulcolax Supposit (08/13/22 10:15) Gabapentin Capsule/Tablet (Neurontin Cap (08/13/22 21:00) Gabapentin Capsule/Tablet (Neurontin Cap (08/13/22 12:00) Hydromorphone Injection (Dilaudid Inject (08/13/22 10:15) Lorazepam Tablet (Ativan Tablet) (08/13/22 10:15) Enoxaparin Injection (Lovenox Injection) (08/13/22 21:00) Melatonin Tablet (Melatonin Tablet) (08/13/22 10:15) Polyethylene Glycol Powder Pkt (Miralax (08/13/22 10:15) Antacid Suspension (Mylanta Suspension (08/13/22 10:15) Sodium Chloride Tablet (Sodium Chloride (08/13/22 21:00) Acetaminophen Tablet/Caplet (Tylenol T (08/13/22 10:15) Ondansetron Injection (Zofran Injectio (08/13/22 10:15) Ondansetron Oral Dissolve Tab (Zofran (08/13/22 10:15) Amlodipine Tablet (Norvasc Tablet) (08/14/22 09:00) Bupropion Sr 12 Hr Tablet (Wellbutrin Sr (08/13/22 21:00) Clonidine Tablet (Catapres Tablet) (08/13/22 10:15) Oxycodone Immediate Rel Tablet (Oxyir Ta (08/13/22 10:15) Mat Initiate Protocol (08/13/22 10:11) Amlodipine Tablet (Norvasc Tablet) (08/14/22 09:00) Atorvastatin Tablet (Lipitor Tablet) (08/14/22 09:00) Celecoxib Capsule (Celebrex Capsule) (08/14/22 09:00) Cholecalciferol Capsule/Tablet (Vitamin (08/14/22 09:00) Duloxetine Capsule (Cymbalta Capsule) (08/13/22 13:00) Gabapentin Capsule/Tablet (Neurontin Cap (08/13/22 21:00) Gabapentin Capsule/Tablet (Neurontin Cap (08/13/22 12:00) Lisinopril Tablet (Zestril Tablet) (08/14/22 09:00) Metformin Tablet (Glucophage Tablet) (08/13/22 21:00) Therapeutic Multivitamin Tab (Vitamins, (08/14/22 09:00) Pantoprazole Tablet (Protonix Tablet) (08/14/22 09:00) Primidone Tablet (Mysoline Tablet) (08/13/22 13:00) Timolol 0.5% Ophthalmic Soln (Timoptic 0 (08/13/22 13:00) Trazodone Tablet (Desyrel Tablet) (08/13/22 21:00) (Nf) Acetaminophen/Diphenhydramine (Tyle (08/13/22 10:30) (Nf) Bupropion Hcl (Bupropion Xl) (08/14/22 09:00) Hydroxyzine Cap/Tab (Vistaril) (08/13/22 21:00) Oxycodone Immediate Rel Tablet (Oxyir Ta (08/13/22 11:00) (Nf) Vitamin B Complex (08/14/22 09:00) Pharmacy Consult/Message (08/13/22 10:22) Pharmacy Consult/Message (08/13/22 10:55) Flu Quad (6 Months+)[id number] (Fluzone (08/13/22 11:00) Patient Visit (08/13/22 ) Pt Eval Moderate Complexity (08/13/22 ) Exercise Therap, Ea 15 Min (08/13/22 ) Functional Activities, Ea 15 (08/13/22 ) Patient Visit (08/13/22 ) Speech Sound Lang Comp (08/13/22 ) Treat. Speech/Lang/Voice (08/13/22 ) Follow-Up Appointment D/C (08/13/22 15:27) Diclofenac 1% Gel (Voltaren 1% Gel) (08/14/22 13:00) Patient Visit (08/14/22 ) Treat. Speech/Lang/Voice (08/14/22 ) Ensure Plus Variety DAILY (08/14/22 14:00) Patient Visit (08/14/22 ) Gait Training, Ea 15 Min (08/14/22 ) Functional Activities, Ea 15 (08/14/22 ) Exercise Therap, Ea 15 Min (08/14/22 ) Rehab Nursing Orders: Ongoing Assess. of Function Status, Bladder Management, Bladder Scan, Bladder Training, Bowel Management, Bowel Training, Disease Management & Educaiton, DVT Prophylaxis, Fall Prevention, Fluid/Electrolyte/Nutrition Mgmt, Infection Prevention, Medication Management & Education, Management of Risks & Complications, Management of Skin Intergrity, Nutrition Management, Pain Management, Patient/Family Support, Safety Management, Swallow Precautions Intensity of Therapy to be met Patient to be seen: Min.3h per day/5 of 7d PT IPOC Problem List: Activity Tolerance, Functional Strength, Safety, Balance, Gait, Transfer, ROM Treatment Plan: Continue Plan of Care Education, Functional Activity Rogers, Functional Strength, Gait, Safety, The rapeutic Exercise, Transfers Treatment Duration: Sep 03, 2022 Frequency: At least 5 of 7 days/Wk (IRF) Estimated Hrs Per Day: 1.5 hours per day OT IPOC Problems: Decreased Activ Tolerance, Decreased Safety Aware, Decreased UE Strength, Impaired Coordination, Impaired Funct Balance, Impaired I ADL's, Impaired Self-Care Skills, Restricted Funct UE ROM OT Treatment, Training and Edu: Yes Plan of Care: ADL Retraining, Caregiver Training, Functional Mobility, Group Exercise/Act as Ind, UE Funct Exercise/Act Treatment Duration: Sep 04, 2022 Frequency: At least 5 of 7 days/Wk (IRF) Estimated Hrs Per Day: 1.5 hours per day (60-90 min/day) ST IPOC Speech Therapy Treatment Plan: Continue Plan of Care Treatment Duration: Aug 23, 2022 Frequency: Modified Program (IRF) (Four to Five Times per Week.) Estimated Hrs Per Day: .5 hour per day Pickle Pumper/Case Mgmt Pickle Pumper/Case Managemen: Discharge Planning Dietitian/Nuclear Operator Dietitian/Nuclear Operator to monitor nutritional status and make changes and/or recommendations as needed and work with speech pathology on dietary upgrades as the occur. Physician IP Medical Issues being managed closely and that require the 24 hour availability of a physician: Recent falls and hyponatremia along with cervical spine stenosis in need of surgical consultation will require close monitoring from medical management standpoint due to high risk for decompensation Medical Issues: Bowel/Bladder Function, DVT Prophylaxis, Falls Precautions, Fluid/Electrolyte/Nutrition Balance, Infection Protection, Pain Management, Wound Care Brief Synthesis of Preadmission Screen, Post-Admission Evaluation, and Therapy Evaluations: PT OT will focus on regaining function with use of AD in order to return back to independent living in order to strengthen for possible cervical spine surgery Medical Prognosis: Good Anticipated Length of Stay: 7 days PATSY COONEY DO Aug 14, 2022 07:12
[2022-08-14 07:42] VITALS: BP 161/92
[2022-08-14] MEDS: ACETAMINOPHEN 325 MG TABLET PO PRN ×2 (08:19→19:31)
[2022-08-14] MEDS: GABAPENTIN 600 MG (NEURONTIN) TAB PO SCH ×2 (08:20→13:21)
--- NOTE | 2022-08-14 08:56 | Occupational Ther Daily Note ---
OT Current Status-Daily Note Subjective Pt laying in bed upon arrival. He reported getting up earlier in the morning and was very slow and sore. He appeared to be discouraged with how well he did yesterday, compared to today and being sore and tired. Reassurance was given to pt. He c/o of a 10/10 pain in lower back, neck and knees. Co-treat with PT secondary to fall risk, pain, fatigue, endurance, stability, weakness, and balance. Appearance Pt left laying in bed with legs elevated to assist with edema. PT was retrieving an ice pack for his knees. All needs within reach. Mental Status/Objective Patient Orientation: Person, Place, Time, Situation Attachments: IV ADL-Treatment Therapy Code Descriptions/Definitions Functional Busby Measure: 0=Not Assessed/NA 4=Minimal Assistance 1=Total Assistance 5=Supervision or Setup 2=Maximal Assistance 6=Modified Busby 3=Moderate Assistance 7=Complete IndependenceSCALE: Activities may be completed with or without assistive devices. 6-Giurquayrq-sjuukpr completes the activity by him/herself with no assistance from a helper. 5-Set-up or Clean-up Assistance-helper sets up or cleans up; patient completes activity. Guild assists only prior to or following the activity. 4-Supervision or Touching Assistance-helper provides verbal cues and/or touching/steadying and/or contact guard assistance as patient completes activity. Assistance may be provided throughout the activity or intermittently. 3-Partial/Moderate Assistance-helper does LESS THAN HALF the effort. Guild lifts, holds or supports trunk or limbs, but provides less than half the effort. 2-Substantial/Maximal Assistance-helper does MORE THAN HALF the effort. Guild lifts or holds trunk or limbs and provides more than half the effort. 8-Frpediaaa-dxuspg does ALL the effort. Patient does none of the effort to complete the activity. Or, the assistance of 2 or more helpers is required for the patient to complete the activity. If activity was not attempted, code reason: 7-Patient Refused. 9-Not Applicable-not attempted and the patient did not perform the activity before the current illness, exacerbation or injury. 10-Not Attempted due to Environmental Limitations-(lack of equipment, weather restraints, etc.). 88-Not Attempted due to Medical Conditions or Safety Concerns. Oral Hygiene (QC): 4 (CGA due to fatigue and fall risk) Shower/Bathe Self (QC): 4 Upper Body Dressing (QC): 5 Lower Body Dressing (QC): 3 (min assist) On/Off Footwear: 3 Toileting Hygiene (QC): 4 Toilet Transfer (QC): 4 (CGA) Pt was increasingly fatigued and weak today, compared to yesterday. Supine<>sit: SBA. Sit<>stand: CGA. Pt ambulated to bathroom with CGA for safety due to pt's concerns of stability on his feet. Pt doffed upper and lower body clothing withe SBA. Education and demonstration required on how to use AE (long handled sponge, provider network manager and dressing stick) and post instruction, pt able to doff socks with dressing stick with SBA. Pt completed shower 100% in sitting using LHS to reach lower legs and feet. Pt required CGA to lean side to side to reach sandie-area. He needed assist to dry lower legs and feet due to lack of ROM, weakness, and pain. Pt donned underwear without any AE but needed min assist to get R foot threaded. Pt reminded about AE and he used provider network manager to thread bilateral legs into pants. Sock aide given to pt after education and demonstration. Pt able to use sock aide to don socks with min assist. Pt stood to pull pants over hips with min assist for balance and safety. Standing at sink, pt performed oral hygiene with CGA. Pt needed CGA for sitting on toilet, but then was supervision for toileting hygiene. Pt was instructed to pull cord x2 once complete with toileting to ensure safety precautions with standing was taken. Poor follow through, as pt stood from toilet and had pants pulled up, by the time therapists came in. Education OT Patient Education: Correct positioning, Energy conservation, Modified ADL techniques, Progress toward Goal/Update tx plan, Purpose of tx/functional activities, Reviewed precautions, Rehab process, Safety issues, Transfer techniques, Use of adapted equipment Teaching Recipient: Patient Teaching Methods: Demonstration, Discussion Response to Teaching: Verbalize Understanding, Return Demonstration, Reinforcement Needed OT Short Term Goals Short Term Goals Time Frame: Aug 26, 2022 Eatin Oral hygiene: 5 Toileting hygiene: 4 Shower/bathe self: 3 Upper body dressin Lower body dressin Putting on/taking off footwear: 3 OT [facility] Goals [facility] Goals Time Frame: Sep 04, 2022 Acute change in mental status: 0 Inattention: 0 Disorganized thinkin Altered level of consciousness: 0 Eating (QC): 6 Oral Hygiene (QC): 6 Toileting Hygiene (QC): 5 Shower/Bathe Self (QC): 5 Upper Body Dressing (QC): 6 Lower Body Dressing (QC): 5 On/Off Footwear (QC): 5 (anticipate once pain subsides) Additional Goals: 1-Demonstrate ADL Tasks, 2-Verbalize Understanding, 3- ImproveStrength/Rogers 1=Demonstrate adherence to instructed precautions during ADL tasks. 2=Patient will verbalize/demonstrate understanding of assistive devices/modifications for ADL. 3=Patient will improve strength/tolerance for activity to enable patient to perform ADL's. OT Education/Plan Problem List/Assessment Assessment: Decreased Activ Tolerance, Decreased Safety Aware, Decreased UE Strength, Impaired Coordination, Impaired Funct Balance, Impaired I ADL's, Impaired Self-Care Skills Discharge Recommendations Plan/Recommendations: Continue POC Treatment Plan/Plan of Care Treatment,Training & Education: Yes Patient would benefit from OT for education, treatment and training to promote independence in ADL's, mobility, safety and/or upper extremity function for ADL's. Plan of Care: ADL Retraining, Caregiver Training, Functional Mobility, Group Exercise/Act as Ind, UE Funct Exercise/Act Treatment Duration: Sep 04, 2022 Frequency: At least 5 of 7 days/Wk (IRF) Estimated Hrs Per Day: 1.5 hours per day (60-90 min/day) Agreement: Yes Rehab Potential: Fair Time/GCodes Start Time: 07:45 Stop Time: 09:00 Total Time Billed (hr/min): 75 Billed Treatment Time 1 visit ADL x5 Co-treat with PT: [id number] Sepideh Varela OT Aug 14, 2022 08:56
[2022-08-14] MEDS: hydrOXYzine (VISTARIL/ATARAX) 25 MG capsule/tablet PO SCH ×2 (08:57→20:21)
[2022-08-14] MEDS: DOCUSATE SODIUM 100 MG (COLACE) CAP PO SCH ×2 (08:57→20:06)
[2022-08-14] MEDS: MULTIVIT W/MINERALS TAB (THERAGRAN M) PO SCH (08:57)
[2022-08-14] MEDS: amLODIPine 5 MG (NORVASC) TAB PO SCH (08:57)
[2022-08-14] MEDS: metFORMIN 500 MG (GLUCOPHAGE) TAB PO SCH ×2 (08:57→20:19)
[2022-08-14] MEDS: CELECOXIB 100 MG (CeleBREX) CAP PO SCH (08:57)
[2022-08-14] MEDS: VITAMIN D3 25 MCG (1,000 UNITS) TABLET PO SCH (08:57)
[2022-08-14] MEDS: lisINopril 20 MG (PRINIVIL) TABLET PO SCH (08:57)
[2022-08-14] MEDS: DULoxetine 30 MG (CYMBALTA) CAP PO SCH ×3 (08:57→20:20)
[2022-08-14] MEDS: PRIMIDONE 50 MG TAB (MYSOLINE) PO SCH ×3 (08:58→20:20)
[2022-08-14] MEDS: buPROPion SR 150 MG (WELLBUTRIN SR) TAB PO SCH ×2 (08:58→20:18)
[2022-08-14] MEDS ORDERED: amLODIPine 5 MG (NORVASC) TAB PO SCH (09:00)
[2022-08-14] MEDS ORDERED: NON-FORMULARY MEDICATION 1 EA EA (Bupropion HCl (Bupropion Xl) 300 MG) PO SCH (09:00)
[2022-08-14] MEDS: PANTOPRAZOLE 40 MG (PROTONIX) TAB PO SCH ×2 (09:00→13:22)
[2022-08-14] MEDS ORDERED: NON-FORMULARY MEDICATION 1 EA EA (Vitamin B Complex 1 EACH) PO SCH (09:00)
[2022-08-14] MEDS: SODIUM CHLORIDE 1 GM TABLET PO SCH ×2 (09:01→20:24)
[2022-08-14] MEDS: SENNA W/DOCUSATE (SENOKOT S) TABLET PO SCH ×2 (09:01→20:07)
[2022-08-14] MEDS: polyethylene glycoL POWDER 17 GM (MIRALAX) PACK PO SCH ×2 (09:01→20:07)
[2022-08-14] MEDS: TIMOLOL MALEATE 0.5% 5 ML (TIMOPTIC) BTL OU SCH ×3 (09:04→20:24)
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
--- NOTE | 2022-08-14 10:22 | Speech Therapy Daily Note ---
Speech Daily Progress Note Subjective Date Seen by Provider: Aug 14, 2022 Time Seen by Provider: 09:15 The patient was lying in bed, awake, upon entrance to his room by the clinician. The patient greeted the clinician appropriately and was agreeable to participation in the cognitive linguistic treatment session. Per patient, "I am in too much pain (back, knee, hips) to do what you guys are asking me to do." The staff are aware of the patient's reports of pain. Objective The patient completed word-finding exercises with high accuracy. The patient was asked to provide a specific word which started with a specific letter and fit into a category provided by the clinician. The patient completed the task with 90% accuracy and mild clinician verbal cueing. Assessment Assessment Current Status: Fair Progress Treatment Plan Continue Plan of Care Speech Short Term Goals Short Term Goals Short Term Goals 1. The patient will demonstrate 90% accuracy with word-finding exercises with mild clinician verbal cueing. Time Frame-STG: One Week. Speech Senior Living Goals Cruise Agent Goals 1. The patient will demonstrate an improvement with cognitive linguistic skills for safe discharge to the least restrictive environment. Time Frame: Ten Days. Speech-Plan Treatment Plan Speech Therapy Treatment Plan: Continue Plan of Care Treatment Duration: Aug 23, 2022 Frequency: Modified Program (IRF) (Four to Five Times per Week.) Estimated Hrs Per Day: .5 hour per day Rehab Potential: Fair Safety Risks/Education Teaching Recipient: Patient Teaching Methods: Demonstration, Discussion Response to Teaching: Verbalize Understanding, Return Demonstration Education Topics Provided: Word Finding Strategies Time Speech Therapy Time In: 09:15 Speech Therapy Time Out: 09:45 Total Billed Time: 30 Billed Treatment Time 1VIMAL [facility]IZ[facility] Aug 14, 2022 10:22
[2022-08-14] MEDS: DICLOFENAC 1% GEL 100 GM (VOLTAREN) TUBE TOP SCH ×3 (13:24→20:25)
[2022-08-14] MEDS: ALPRAZolam 0.25 MG (XANAX) TAB PO PRN (16:45)
[2022-08-14] MEDS: traZODone 100 MG (DESYREL) TAB PO SCH (20:20)
[2022-08-14] MEDS: GABAPENTIN 400 MG (NEURONTIN) CAP PO SCH (20:23)
[2022-08-14] MEDS: ENOXAPARIN 40 MG/0.4 ML (LOVENOX) SYR SC SCH (20:25)
[2022-08-14 20:30] VITALS: BP 148/81
[2022-08-15] MEDS: ACETAMINOPHEN 325 MG TABLET PO PRN ×3 (02:20→16:31)
--- NOTE | 2022-08-15 05:49 | PM&R Progress Note ---
Subjective HPI/CC On Admission Date Seen by Provider: Aug 15, 2022 Time Seen by Provider: 12:00 Subjective/Events-last exam 08/15/2022: Patient did experience a fever today similar to 2 months ago This appears to be an inflammatory type response and not sepsis We will check septic protocol if fever persist and we will check labs in the morning regardless Complaining of pain everywhere and he is on chronic narcotics and I do not feel comfortable increasing the amount he is on 08/14/2022: No major issues Less weakness Improved hyponatremia Neuropathy discussed long term care phlebotomist narcs management discussed Review of Systems General: Fatigue, Malaise Objective Exam Vital Signs Vital Signs Date Time Temp Pulse Resp B/P (MAP) Pulse Ox O2 Delivery O2 Flow Rate FiO2 08/15/22 21:15 Room Air 08/15/22 20:00 37.5 71 16 161/72 (101) 91 08/15/22 07:25 21 08/15/22 07:21 0.00 Capillary Refill : General Appearance: WD/WN, Chronically ill, Obese HEENT: PERRL/EOMI, Normal ENT Inspection, Pharynx Normal Neck: Full Range of Motion, Normal Inspection, Non Tender, Supple, Carotid Bruit Respiratory: Chest Non Tender, Lungs Clear, Normal Breath Sounds, No Accessory Muscle Use, No Respiratory Distress Cardiovascular: Regular Rate, Rhythm, No Edema, No Gallop, No JVD, No Murmur, Normal Peripheral Pulses Gastrointestinal: Normal Bowel Sounds, No Organomegaly, No Pulsatile Mass, Non Tender, Soft Back: Normal Inspection, No CVA Tenderness, No Vertebral Tenderness Extremity: Normal Capillary Refill, Normal Inspection, Normal Range of Motion, Non Tender, No Calf Tenderness, No Pedal Edema Neurologic/Psychiatric: Alert, field service supervisor II-XII Norm as Tested, Abnormal Gait, Depressed Affect, Motor Weakness, Sensory Deficit (Bilateral feet) Skin: Normal Color, Warm/Dry Lymphatic: No Adenopathy Results/Procedures Lab Patient resulted labs reviewed. FIM Transfers Therapy Code Descriptions/Definitions Functional [place] Measure: 0=Not Assessed/NA 4=Minimal Assistance 1=Total Assistance 5=Supervision or Setup 2=Maximal Assistance 6=Modified [place] 3=Moderate Assistance 7=Complete IndependenceSCALE: Activities may be completed with or without assistive devices. 0-Bnefvxhozy-lyznodt completes the activity by him/herself with no assistance from a helper. 5-Set-up or Clean-up Assistance-helper sets up or cleans up; patient completes a ctivity. [place] assists only prior to or following the activity. 4-Supervision or Touching Assistance-helper provides verbal cues and/or touching/steadying and/or contact guard assistance as patient completes activity. Assistance may be provided throughout the activity or intermittently. 3-Partial/Moderate Assistance-helper does LESS THAN HALF the effort. [place] lifts, holds or supports trunk or limbs, but provides less than half the effort. 2-Substantial/Maximal Assistance-helper does MORE THAN HALF the effort. [place] lifts or holds trunk or limbs and provides more than half the effort. 7-Fxqufaqys-jpxgoz does ALL the effort. Patient does none of the effort to complete the activity. Or, the assistance of 2 or more helpers is required for the patient to complete the activity. If activity was not attempted, code reason: 7-Patient Refused. 9-Not Applicable-not attempted and the patient did not perform the activity before the current illness, exacerbation or injury. 10-Not Attempted due to Environmental Limitations-(lack of equipment, weather restraints, etc.). 88-Not Attempted due to Medical Conditions or Safety Concerns. Roll Left to Right (QC): 5 (uses rail) Sit to Lying (QC): 4 (assist with LEs into bed) Sit to Stand (QC): 6 Chair/Igv-bj-Mnceh Xfer(QC): 4 Car Transfer (QC): 4 Gait Training Does the Patient Walk?: Yes Walk 10 feet (QC): 4 Walk 50 ft with 2 Turns(QC): 4 Walk 150 ft (QC): 88 Walking 10ft/uneven surface-QC: 4 Gait Persons Needed: 1 Gait Assistive Device: FWW Wheelchair Training Does the Pt Use a Wheelchair?: No Wheel 50 ft with 2 turns (QC): 3 Wheel 150 ft (QC): 88 Type of Wheelchair: Manual Stair Training #of Steps: 1 1 Step (curb) (QC): 4 4 Steps (QC): 88 12 Steps (QC): 88 Balance Picking up an Object (QC): 4 (CGA using a tire repairman) ADL-Treatment Eating (QC): 4 (pt reports using heavy/built up silverware at home due to marion rs) Oral Hygiene (QC): 4 (CGA due to fatigue and fall risk) Shower/Bathe Self (QC): 4 Upper Body Dressing (QC): 5 Lower Body Dressing (QC): 3 (min assist) On/Off Footwear (QC): 3 Toileting Hygiene (QC): 4 Toilet Transfer (QC): 4 (CGA) Assessment/Plan Assessment and Plan Assess & Plan/Chief Complaint Patient resulted labs reviewed. Imaging: Reviewed Imaging Films, Reviewed Imaging Report Imaging Head CT 08/11/22: IMPRESSION: No identified acute intracranial abnormality. Bilateral Knee Xray 08/11/22: IMPRESSION: 1. No acute fracture or dislocation in the bilateral knees. 2. Bilateral prior total knee arthroplasties. No periprosthetic fracture or loosening. 3. Bilateral small joint effusions in the knees. Bilateral pelvis/hip xray 08/11/22: IMPRESSION: No identified acute bony abnormality of the pelvis or either hip. Chest Xray 08/11/22: IMPRESSION: No identified acute cardiopulmonary abnormality. OUTSIDE IMAGING REPORTS MRI Brain 06/10/22: 1. Few small patchy elina of T2 whte matter hyperintensity in the periventricular and subcortical white matter likley related to chronic microvascular injury. 2. No acute intracranial process. MRI C Spine 06/10/22: 1. Severe degenerative changes noted in the mid to lower cervical spine with multilevel moderate to severe spinal stenosis, most prominent at C6-C7 level. 2. Cord flattening, probably cord gliosis/edema at C6-C7. 3. Marrow edema/abnormal signal noted at several levels in the the cervical spine from C3 through C7. Would favor discogenic marrow changes; however, infection or neoplasm not completely excluded. MRI Thoracic spine 06/10/22: 1. Mild sponylosis and disc bulging at several levels in the mid to lower thoracic spine. No level with disc herniation or spinal stenosis is noted. 2. Heterogenous marrow signal in thoracic spine with focal T10 vertebral body lesion noted. CT Thoracic spine w/out contrast 06/11/22: 1. No destructive bone lesion is visible in the T10 vertebral body where an indeterminate area of abnormal signal is identified on recent MRI of thoracic spine. Assessment/Plan Admission Diagnosis Weakness and hx of falls in setting of cervical spinal stenosis Admission Status: Inpatient Order (span 2 midnights) Reason for Inpatient Admission: Generalized weakness due to cervical spinal stenosis Assessment and Plan Assessment: Mr. Garland Solano is a 57 y/o M with PMH of chronic pain, HTN, and cervical spinal stenosis who presented to the hospital on 08/10/22 for generalized weakness, falls, and headache likely due to his known cervical spinal stenosis. Plan: 1. Generalized weakness due to Cervical spinal stenosis of C6-C7. - Outside imaging results faxed over and review. (see imaging for reports) - Initial neurology consultation faxed over, but post-imaging note not faxed over yet. - Bilateral lower extremities weakness > bilateral upper extremities weakness - pt has follow up with Neurosurgery on 08/24/22 to assess surgical candidacy > PT/OT > Cont Gabapentin 1200mg TID > Cont Dilaudid 0.5mg IV q2 hr PRN > Cont Oxy 10mg q4 hr PRN 2. Confusion likely secondary to Hyponatremia > Fluid restriction > Sodium chloride 1gm tab BID > Consider Urine Na workup if continues to have hyponatremia 3. Constipation - last bowel movement 2 days ago, typically is regular > Cont Docusate 100mg BID 4. Hx of HTN > Cont amlopidine 5mg > Cont Clonidine 0.1 mg q4 PRN Dispo: will likely need placement at nursing facility until can be seen for neurosurgery consultation Diet: regular diet DVT PPX: Lovenox Code: Full code Assessment: Cervical spine stenosis causing severe weakness and neurological deficits Hyponatremia Hypertension Status post acute kidney injury Dehydration Chronic pain Narcotic dependence Narcotic bowel with current constipation Plan: PT OT regimen Bowel regimen Fluid restriction 08/14/2022: Monitor pain Aggressive therapy 08/15/2022: Fever monitoring Joint pain (1) Cervical spinal stenosis Status: Acute (2) Generalized weakness Status: Acute (3) Hyponatremia Status: Acute (4) Renal insufficiency Status: Acute (5) Essential hypertension PATSY COONEY DO Aug 15, 2022 05:49
[2022-08-15 07:25] VITALS: BP_SYST 148; BP_SYST 174; BP_DIAS 81; BP_DIAS 83
[2022-08-15 08:17] VITALS: BP 185/86
[2022-08-15] MEDS: metFORMIN 500 MG (GLUCOPHAGE) TAB PO SCH ×2 (08:18→21:25)
[2022-08-15] MEDS: hydrOXYzine (VISTARIL/ATARAX) 25 MG capsule/tablet PO SCH ×2 (08:18→21:24)
[2022-08-15] MEDS: buPROPion SR 150 MG (WELLBUTRIN SR) TAB PO SCH ×2 (08:18→21:25)
[2022-08-15] MEDS: CELECOXIB 100 MG (CeleBREX) CAP PO SCH (08:18)
[2022-08-15] MEDS: DULoxetine 30 MG (CYMBALTA) CAP PO SCH ×3 (08:18→21:25)
[2022-08-15] MEDS: PANTOPRAZOLE 40 MG (PROTONIX) TAB PO SCH (08:18)
[2022-08-15] MEDS: VITAMIN D3 25 MCG (1,000 UNITS) TABLET PO SCH (08:19)
[2022-08-15] MEDS: GABAPENTIN 600 MG (NEURONTIN) TAB PO SCH ×2 (08:19→12:07)
[2022-08-15] MEDS: lisINopril 20 MG (PRINIVIL) TABLET PO SCH (08:19)
[2022-08-15] MEDS: SODIUM CHLORIDE 1 GM TABLET PO SCH ×2 (08:19→21:23)
[2022-08-15] MEDS: MULTIVIT W/MINERALS TAB (THERAGRAN M) PO SCH (08:19)
[2022-08-15] MEDS: PRIMIDONE 50 MG TAB (MYSOLINE) PO SCH ×3 (08:19→21:25)
[2022-08-15] MEDS: amLODIPine 5 MG (NORVASC) TAB PO SCH (08:19)
[2022-08-15] MEDS: DOCUSATE SODIUM 100 MG (COLACE) CAP PO SCH ×2 (08:20→21:27)
[2022-08-15] MEDS: polyethylene glycoL POWDER 17 GM (MIRALAX) PACK PO SCH ×2 (08:21→21:27)
[2022-08-15] MEDS: DICLOFENAC 1% GEL 100 GM (VOLTAREN) TUBE TOP SCH ×4 (08:21→21:21)
[2022-08-15] MEDS: TIMOLOL MALEATE 0.5% 5 ML (TIMOPTIC) BTL OU SCH ×3 (08:21→21:20)
[2022-08-15] MEDS: SENNA W/DOCUSATE (SENOKOT S) TABLET PO SCH ×2 (08:21→21:28)
--- NOTE | 2022-08-15 08:22 | Occupational Ther Daily Note ---
OT Current Status-Daily Note Subjective Pt laying in bed upon arrival. C/o of 10/10 pain in knees, back, neck and hips. Pt reports a rough night of fevers and diarrhea. Pt and nurse reported a fever at the beginning of the morning. Appearance Pt left laying in bed with all needs met and within reach. Mental Status/Objective Patient Orientation: Person, Place, Time, Situation Attachments: IV ADL-Treatment Therapy Code Descriptions/Definitions Functional [place] Measure: 0=Not Assessed/NA 4=Minimal Assistance 1=Total Assistance 5=Supervision or Setup 2=Maximal Assistance 6=Modified [place] 3=Moderate Assistance 7=Complete IndependenceSCALE: Activities may be completed with or without assistive devices. 0-Hupkosayyd-dsbxrpj completes the activity by him/herself with no assistance from a helper. 5-Set-up or Clean-up Assistance-helper sets up or cleans up; patient completes activity. [place] assists only prior to or following the activity. 4-Supervision or Touching Assistance-helper provides verbal cues and/or touching/steadying and/or contact guard assistance as patient completes activity. Assistance may be provided throughout the activity or intermittently. 3-Partial/Moderate Assistance-helper does LESS THAN HALF the effort. [place] lifts, holds or supports trunk or limbs, but provides less than half the effort. 2-Substantial/Maximal Assistance-helper does MORE THAN HALF the effort. [place] lifts or holds trunk or limbs and provides more than half the effort. 9-Vvzgdnmzm-ywchvm does ALL the effort. Patient does none of the effort to complete the activity. Or, the assistance of 2 or more helpers is required for the patient to complete the activity. If activity was not attempted, code reason: 7-Patient Refused. 9-Not Applicable-not attempted and the patient did not perform the activity before the current illness, exacerbation or injury. 10-Not Attempted due to Environmental Limitations-(lack of equipment, weather restraints, etc.). 88-Not Attempted due to Medical Conditions or Safety Concerns. Pt reports feeling fatigued, sick and sore this morning. He declines all ADLs due to not feeling well. Pt's temp was taken at 0800 and was 102 degrees. BP: 185/86. HR: 77 BPM. 94% O2. RN notified. Therapists made pt comfortable with ice pack for knee, warm blankets, cold wash rag and positioning in bed. Education OT Patient Education: Correct positioning, Reviewed precautions, Rehab process Teaching Recipient: Patient Teaching Methods: Discussion Response to Teaching: Verbalize Understanding OT Short Term Goals Short Term Goals Time Frame: Aug 26, 2022 Eatin Oral hygiene: 5 Toileting hygiene: 4 Shower/bathe self: 3 Upper body dressin Lower body dressin Putting on/taking off footwear: 3 OT Care Home Goals Risk Control Director Goals Time Frame: Sep 04, 2022 Acute change in mental status: 0 Inattention: 0 Disorganized thinkin Altered level of consciousness: 0 Eating (QC): 6 Oral Hygiene (QC): 6 Toileting Hygiene (QC): 5 Shower/Bathe Self (QC): 5 Upper Body Dressing (QC): 6 Lower Body Dressing (QC): 5 On/Off Footwear (QC): 5 (anticipate once pain subsides) Additional Goals: 1-Demonstrate ADL Tasks, 2-Verbalize Understanding, 3- ImproveStrength/Rog[place] 1=Demonstrate adherence to instructed precautions during ADL tasks. 2=Patient will verbalize/demonstrate understanding of assistive devices/modifications for ADL. 3=Patient will improve strength/tolerance for activity to enable patient to perform ADL's. OT Education/Plan Problem List/Assessment Assessment: Decreased Activ Tolerance, Decreased UE Strength, Impaired Coordin ation, Impaired Funct Balance, Impaired I ADL's, Impaired Self-Care Skills Discharge Recommendations Plan/Recommendations: Continue POC Treatment Plan/Plan of Care Treatment,Training & Education: Yes Patient would benefit from OT for education, treatment and training to promote independence in ADL's, mobility, safety and/or upper extremity function for ADL's. Plan of Care: ADL Retraining, Caregiver Training, Functional Mobility, Group Exercise/Act as Ind, UE Funct Exercise/Act Treatment Duration: Sep 04, 2022 Frequency: At least 5 of 7 days/Wk (IRF) Estimated Hrs Per Day: 1.5 hours per day (60-90 min/day) Agreement: Yes Rehab Potential: Fair Time/GCodes Start Time: 07:45 Stop Time: 08:15 Total Time Billed (hr/min): 30 Billed Treatment Time 1 visit ADL x2 Co-treat with PT [id number] Sepideh Varela OT Aug 15, 2022 08:22
--- NOTE | 2022-08-15 08:26 | Physical Therapy Daily Note ---
PT Daily Note-Current Subjective Pt. in bed, refuses therapies stating he is ill, in pain, has been having stomache upset, diarrhea, back pain and knee pain at "past 08/05, this is a level where I feel like Im going to lose my mind" Nursing consulted, OT PT had planned co Rx but pt refuses multiple times and after assessed has BP 185/86, HR 77, temp 38.5c, Pt. agreed to cold pack to right knee which when assessed does not present as red and swollen as it did yesterday but pt. does have exquisite pain at joint line of right knee medial> lateral. Pain Numeric Pain Scale: 10-Worst Possible Pain Location: Right Location Body Site: Knee Comment: pt. also c/o pain in mid and low back at 08/05 Section J - Health Conditions 1. Rarely or not at all 2. Occasionally 3. Frequently 4. Almost constantly 8. Unable to answer Pain Effect on Sleep: 3 Pain Interference with Therapy: 4 Pain Interference w/Day-to-Day: 4 Appearance pale, somnolent Mental Status Patient Orientation: Normal For Age Transfers SCALE: Activities may be completed with or without assistive devices. 1-Zckimjbpkv-qynmiij completes the activity by him/herself with no assistance from a helper. 5-Set-up or Clean-up Assistance-helper sets up or cleans up; patient completes activity. [place] assists only prior to or following the activity. 4-Supervision or Touching Assistance-helper provides verbal cues and/or touching/steadying and/or contact guard assistance as patient completes activity. Assistance may be provided throughout the activity or intermittently. 3-Partial/Moderate Assistance-helper does LESS THAN HALF the effort. [place] lifts, holds or supports trunk or limbs, but provides less than half the effort. 2-Substantial/Maximal Assistance-helper does MORE THAN HALF the effort. [place] lifts or holds trunk or limbs and provides more than half the effort. 6-Onlxktycy-zbcfis does ALL the effort. Patient does none of the effort to complete the activity. Or, the assistance of 2 or more helpers is required for the patient to complete the activity. If activity was not attempted, code reason: 7-Patient Refused. 9-Not Applicable-not attempted and the patient did not perform the activity before the current illness, exacerbation or injury. 10-Not Attempted due to Environmental Limitations-(lack of equipment, weather restraints, etc.). 88-Not Attempted due to Medical Conditions or Safety Concerns. rolls left an right indep, for positioning etc and cold pack placement Treatments assessed co Rx with OT, pt. c/o severe pain and diarrhea and fever , pt. also presents with a cough, see vitals above in Subjective Assessment Current Status: No Treatment/Other Tests (status change, febrile, increased pain c/o) PT Short Term Goals Short Term Goals Time Frame: Aug 20, 2022 Roll Left & Right: 6 Sit to lyin Lying to sitting on side of be: 6 Sit to stand: 4 (SBA) Chair/kgy-qp-tcamr transfer: 4 (SBA) Walk 10 feet: 4 (SBA) Walk 50 feet with two turns: 4 (SBA) Walk 150 feet: 4 (SBA) PT Fuel Cell Test Engineer Goals Fuel Cell Test Engineer Goals PT Fpc Goals Time Frame: Sep 03, 2022 Roll Left & Right (QC): 6 Sit to Lying (QC): 6 Lying-Sitting on Side/Bed(QC): 6 Sit to Stand (QC): 6 Chair/Ksh-ek-[place]ve[place] Xfer(QC): 6 Toilet Transfer (QC): 6 Car Transfer (QC): 6 Does the Patient Walk: Yes Walk 10 feet (QC): 6 Walk 50ft with 2 Turns (QC): 6 Walk 150 ft (QC): 6 Walking 10ft on Uneven Surface: 6 1 Step (curb) (QC): 4 4 Steps (QC): 4 12 Steps (QC): 88 Picking up an Object (QC): 4 (SBA) Wheel 50 feet with 2 turns (QC: 9 Wheel 150 feet: 9 PT Plan Treatment/Plan Treatment Plan: Continue Plan of Care Treatment Plan: Education, Functional Activity [place], Functional Strength, Gait, Safety, Therapeutic Exercise, Transfers Treatment Duration: Sep 03, 2022 Frequency: At least 5 of 7 days/Wk (IRF) Estimated Hrs Per Day: 1.5 hours per day Patient and/or Family Agrees t: Yes Time/GCodes Time In: 800 Time Out: 815 Total Billed Treatment Time: 15 Total Billed Treatment 1,FA 15m,(co Rx 15 m OT) JOEL IBANEZ XM1 TANK DRIVER Aug 15, 2022 08:26
[2022-08-15] MEDS: LORazepam 0.5 MG (ATIVAN) TABLET PO PRN ×2 (09:17→18:19)
[2022-08-15 09:22] VITALS: BP 169/76
[2022-08-15] MEDS ORDERED: LORATADINE (CLARITIN) 10 MG TAB PO NR (10:30)
--- NOTE | 2022-08-15 12:26 | Speech Therapy Daily Note ---
Speech Daily Progress Note Subjective Date Seen by Provider: Aug 15, 2022 Time Seen by Provider: 09:00 The patient was lying in bed, awake and alert, upon entrance to his room by the clinician. The patient greeted the clinician appropriately and was agreeable to participation in the cognitive linguistic treatment session. To note, the patient has felt ill on this date, demonstrating a temperature throughout the morning. The patient reports fatigue and overall pain. The RN is aware and working towards treatment of the patient's reports. Objective The clinician and patient participated in structured conversation on this date, mostly surrounding the patient's care and his current pain/discomfort. The patient does not display word-finding difficulties throughout the treatment session and communicates with ease and comprehension. The patient remains 100% independently oriented to self, location, month, day of the week, and date. Assessment Assessment Current Status: Fair Progress Treatment Plan Continue Plan of Care Speech Short Term Goals Short Term Goals Short Term Goals 1. The patient will demonstrate 90% accuracy with word-finding exercises with mild clinician verbal cueing. Time Frame-STG: One Week. Speech Inspector Machine [place] Goals Inspector Machine [place] Goals 1. The patient will demonstrate an improvement with cognitive linguistic skills for safe discharge to the least restrictive environment. Time Frame: Ten Days. Speech-Plan Treatment Plan Speech Therapy Treatment Plan: Continue Plan of Care Treatment Duration: Aug 23, 2022 Frequency: Modified Program (IRF) (Four to Five Times per Week.) Estimated Hrs Per Day: .5 hour per day Rehab Potential: Fair Safety Risks/Education Teaching Recipient: Patient Teaching Methods: Discussion Response to Teaching: Verbalize Understanding Education Topics Provided: Plan of Care, Orientation Time Speech Therapy Time In: 09:00 Speech Therapy Time Out: 09:30 Total Billed Time: 30 Billed Treatment Time VIMAL CalvilloDEEPIKA Aug 15, 2022 12:26
--- NOTE | 2022-08-15 13:46 | Occupational Ther Daily Note ---
OT Current Status-Daily Note Subjective Pt laying in bed upon arrival. He stated that he feels much better but is still having consistent knee pain (8/10). Co-treat with PT secondary to pain, and fall risk. Appearance Pt left with PT in therapy gym. All needs met at this time. Mental Status/Objective Patient Orientation: Person, Place, Time, Situation ADL-Treatment Therapy Code Descriptions/Definitions Functional [place] Measure: 0=Not Assessed/NA 4=Minimal Assistance 1=Total Assistance 5=Supervision or Setup 2=Maximal Assistance 6=Modified [place] 3=Moderate Assistance 7=Complete IndependenceSCALE: Activities may be completed with or without assistive devices. 2-Hmyjjuntbe-rffdhun completes the activity by him/herself with no assistance from a helper. 5-Set-up or Clean-up Assistance-helper sets up or cleans up; patient completes activity. [place] assists only prior to or following the activity. 4-Supervision or Touching Assistance-helper provides verbal cues and/or touching/steadying and/or contact guard assistance as patient completes activity. Assistance may be provided throughout the activity or intermittently. 3-Partial/Moderate Assistance-helper does LESS THAN HALF the effort. [place] lifts, holds or supports trunk or limbs, but provides less than half the effort. 2-Substantial/Maximal Assistance-helper does MORE THAN HALF the effort. [place] lifts or holds trunk or limbs and provides more than half the effort. 6-Ifniscmfu-foeokj does ALL the effort. Patient does none of the effort to complete the activity. Or, the assistance of 2 or more helpers is required for the patient to complete the activity. If activity was not attempted, code reason: 7-Patient Refused. 9-Not Applicable-not attempted and the patient did not perform the activity before the current illness, exacerbation or injury. 10-Not Attempted due to Environmental Limitations-(lack of equipment, weather restraints, etc.). 88-Not Attempted due to Medical Conditions or Safety Concerns. Pt declined all ADL options. Other Treatment Pt agreed to therapy and wanted to go for a walk. Vitals were taken and pt had a 98.4 F temperature, 136/63 BP, with HR of 86 BPM. Sit<>stand: CGA/SBA. Pt ambulated ~60 ft to waiting room with no rest breaks and CGA for safety. Pt performed seated UE and LE exercises in all planes 1x12 to improve strength, ROM, and endurance. Pt needed increased rest breaks after every exercise and c/o of increasing knee pain with exercises. Pt moved to therapy mat to perform more UE/LE exercises 1x12 laying down to alleviate some lower back/neck pain. Exercises modified to no simultaneous Bilateral UE movements or any overhead movements in order to reduce increased pain in back/neck. Education OT Patient Education: Correct positioning, Energy conservation, Exercise program, Progress toward Goal/Update tx plan, Purpose of tx/functional activities, Reviewed precautions, Rehab process, Safety issues Teaching Recipient: Patient Teaching Methods: Demonstration, Discussion Response to Teaching: Verbalize Understanding, Return Demonstration OT Short Term Goals Short Term Goals Time Frame: Aug 26, 2022 Eatin Oral hygiene: 5 Toileting hygiene: 4 Shower/bathe self: 3 Upper body dressin Lower body dressin Putting on/taking off footwear: 3 OT Acoustics Teacher Goals Snf Goals Time Frame: Sep 04, 2022 Acute change in mental status: 0 Inattention: 0 Disorganized thinkin Altered level of consciousness: 0 Eating (QC): 6 Oral Hygiene (QC): 6 Toileting Hygiene (QC): 5 Shower/Bathe Self (QC): 5 Upper Body Dressing (QC): 6 Lower Body Dressing (QC): 5 On/Off Footwear (QC): 5 (anticipate once pain subsides) Additional Goals: 1-Demonstrate ADL Tasks, 2-Verbalize Understanding, 3- ImproveStrength/Rogers 1=Demonstrate adherence to instructed precautions during ADL tasks. 2=Patient will verbalize/demonstrate understanding of assistive d evices/modifications for ADL. 3=Patient will improve strength/tolerance for activity to enable patient to perform ADL's. OT Education/Plan Problem List/Assessment Assessment: Decreased Activ Tolerance, Decreased UE Strength, Impaired Coordination, Impaired Funct Balance, Impaired I ADL's, Impaired Self-Care Skills Discharge Recommendations Plan/Recommendations: Continue POC Treatment Plan/Plan of Care Treatment,Training & Education: Yes Patient would benefit from OT for education, treatment and training to promote independence in ADL's, mobility, safety and/or upper extremity function for ADL's. Plan of Care: ADL Retraining, Caregiver Training, Functional Mobility, Group Exercise/Act as Ind, UE Funct Exercise/Act Treatment Duration: Sep 04, 2022 Frequency: At least 5 of 7 days/Wk (IRF) Estimated Hrs Per Day: 1.5 hours per day (60-90 min/day) Agreement: Yes Rehab Potential: Fair Time/GCodes Start Time: 13:00 Stop Time: 13:45 Total Time Billed (hr/min): 45 Billed Treatment Time 1 visit EX x3 (45 min) Co-treat with PT: [id number] Sepideh Varela OT Aug 15, 2022 13:46
--- NOTE | 2022-08-15 14:03 | Physical Therapy Daily Note ---
PT Daily Note-Current Subjective Pt. states he feels better than he did this morning and is willing to try to have therapies. By end of Rx pt. requested pain meds and cold pack to right knee . Pt, then rated knee pain at 8/10 Pain Numeric Pain Scale: 8 Location: Right Location Body Site: Knee Pain Description: Ache Section J - Health Conditions 1. Rarely or not at all 2. Occasionally 3. Frequently 4. Almost constantly 8. Unable to answer Pain Effect on Sleep: 3 Pain Interference with Therapy: 4 Pain Interference w/Day-to-Day: 4 Mental Status Patient Orientation: Normal For Age Transfers SCALE: Activities may be completed with or without assistive devices. 5-Gjutifarcz-yaetvid completes the activity by him/herself with no assistance from a helper. 5-Set-up or Clean-up Assistance-helper sets up or cleans up; patient completes activity. [place] assists only prior to or following the activity. 4-Supervision or Touching Assistance-helper provides verbal cues and/or touching/steadying and/or contact guard assistance as patient completes activity. Assistance may be provided throughout the activity or intermittently. 3-Partial/Moderate Assistance-helper does LESS THAN HALF the effort. [place] lifts, holds or supports trunk or limbs, but provides less than half the effort. 2-Substantial/Maximal Assistance-helper does MORE THAN HALF the effort. [place] lifts or holds trunk or limbs and provides more than half the effort. 0-Kbspveuop-ttrqfg does ALL the effort. Patient does none of the effort to complete the activity. Or, the assistance of 2 or more helpers is required for the patient to complete the activity. If activity was not attempted, code reason: 7-Patient Refused. 9-Not Applicable-not attempted and the patient did not perform the activity before the current illness, exacerbation or injury. 10-Not Attempted due to Environmental Limitations-(lack of equipment, weather restraints, etc.). 88-Not Attempted due to Medical Conditions or Safety Concerns. Roll Left & Right (QC): 6 Sit to Lying (QC): 6 Lying to Sitting/Side of Bed(Q: 6 Sit to Stand (QC): 6 Chair/Zoq-qj-Snzpx Xfer(QC): 6 Gait Training Does the Patient Walk?: Yes Walk 10 feet (QC): 4 Walk 50 ft with 2 Turns(QC): 4 Walk 150 ft (QC): 4 Gait Persons Needed: 1 Gait Assistive Device: FWW 175 ft x 4 CGA to SBA good habits noted with FWW for turns and approaches etc Exercises Supine Ex: Ankle pumps, Quad Set, Rolling, Heel Slides, Short Arc Quads, Hip abd/add Supine Reps: 12 Seated Therapy Exercises: Ankle pumps, Sit to stand, Long arc quads, Hip flexion, Hip abd/add Seated Reps: 12 NuStep Minutes: 10 NuStep Workload: 2 Treatments PT OT co Rx for assessment of pt. and coordination of U&L ext activities and balance Assessment Current Status: Good Progress BP 126/62,HR86, temp, 98.4 F, improved tolerance for Rx, pain in right knee exacerbated with activity, cold pack to right knee after Rx, in bed, whalen at hand PT Short Term Goals Short Term Goals Time Frame: Aug 20, 2022 Roll Left & Right: 6 Sit to lyin Lying to sitting on side of be: 6 Sit to stand: 4 (SBA) Chair/ihn-kc-zivhq transfer: 4 (SBA) Walk 10 feet: 4 (SBA) Walk 50 feet with two turns: 4 (SBA) Walk 150 feet: 4 (SBA) PT Care Home Goals Hazmat Cdl A Driver Goals PT Hazmat Cdl A Driver Goals Time Frame: Sep 03, 2022 Roll Left & Right (QC): 6 Sit to Lying (QC): 6 Lying-Sitting on Side/Bed(QC): 6 Sit to Stand (QC): 6 Chair/Uds-of-Ufqbi Xfer(QC): 6 Toilet Transfer (QC): 6 Car Transfer (QC): 6 Does the Patient Walk: Yes Walk 10 feet (QC): 6 Walk 50ft with 2 Turns (QC): 6 Walk 150 ft (QC): 6 Walking 10ft on Uneven Surface: 6 1 Step (curb) (QC): 4 4 Steps (QC): 4 12 Steps (QC): 88 Picking up an Object (QC): 4 (SBA) Wheel 50 feet with 2 turns (QC: 9 Wheel 150 feet: 9 PT Plan Treatment/Plan Treatment Plan: Continue Plan of Care Treatment Plan: Education, Functional Activity [place], Functional Strength, Gait, Safety, Therapeutic Exercise, Transfers Treatment Duration: Sep 03, 2022 Frequency: At least 5 of 7 days/Wk (IRF) Estimated Hrs Per Day: 1.5 hours per day Patient and/or Family Agrees t: Yes Safety Risks/Education Patient Education: Gait Training, Transfer Techniques, Correct Positioning, Di sease Process, Safety Issues Teaching Recipient: Patient Teaching Methods: Demonstration, Discussion Response to Teaching: Verbalize Understanding, Return Demonstration, Reinforcement Needed Time/GCodes Time In: 1300 Time Out: 1400 Total Billed Treatment Time: 60 Total Billed Treatment 1,GT25m,EX35m 45 m co Rx with OT 1300 to 1345 JOEL IBANEZ GRAIN OILSEED OR PASTURE FARM MANAGER Aug 15, 2022 14:03
[2022-08-15 20:00] VITALS: BP 161/72
[2022-08-15] MEDS: GABAPENTIN 400 MG (NEURONTIN) CAP PO SCH (21:23)
[2022-08-15] MEDS: ENOXAPARIN 40 MG/0.4 ML (LOVENOX) SYR SC SCH (21:24)
[2022-08-15] MEDS: traZODone 100 MG (DESYREL) TAB PO SCH (21:25)
[2022-08-16] MEDS: ALPRAZolam 0.25 MG (XANAX) TAB PO PRN (00:58)
[2022-08-16] MEDS: LORazepam 0.5 MG (ATIVAN) TABLET PO PRN (05:30)
[2022-08-16] MEDS: ACETAMINOPHEN 325 MG TABLET PO PRN ×2 (05:30→16:42)
[2022-08-16 05:44] LABS: BASOPHILS % (AUTO) 1 % (0-10); EOSINOPHILS # (AUTO) 0.1 10^3/uL (0.0-0.3); EOSINOPHILS % (AUTO) 1 % (0-10); HEMATOCRIT 29 % (40-54); HEMOGLOBIN 9.6 g/dL (13.3-17.7); LYMPHOCYTES # (AUTO) 0.8 10^3/uL (1.0-4.0); LYMPHOCYTES % (AUTO) 17 % (12-44); MEAN CORPUSCULAR HEMOGLOBIN 32 pg (25-34); MEAN CORPUSCULAR HGB CONC 34 g/dL (32-36); MEAN CORPUSCULAR VOLUME 96 fL (80-99); MEAN PLATELET VOLUME 9.1 fL (9.0-12.2); MONOCYTES % (AUTO) 19 % (0-12); NEUTROPHILS # (AUTO) 3.1 10^3/uL (1.8-7.8); NEUTROPHILS % (AUTO) 62 % (42-75); PLATELET COUNT 311 10^3/uL (130-400); WHITE BLOOD COUNT 5.1 10^3/uL (4.3-11.0)
[2022-08-16 06:06] LABS: ALBUMIN 3.5 GM/DL (3.2-4.5)
[2022-08-16 06:07] LABS: POTASSIUM 4.4 MMOL/L (3.6-5.0)
[2022-08-16 06:08] LABS: CALCIUM 8.7 MG/DL (8.5-10.1)
[2022-08-16 06:09] LABS: TOTAL PROTEIN 6.5 GM/DL (6.4-8.2)
[2022-08-16 06:11] LABS: BILIRUBIN,TOTAL 0.4 MG/DL (0.1-1.0)
[2022-08-16 06:13] LABS: CREATININE SERUM 1.15 MG/DL (0.60-1.30)
--- NOTE | 2022-08-16 06:20 | PM&R Progress Note ---
Subjective HPI/CC On Admission Date Seen by Provider: Aug 16, 2022 Time Seen by Provider: 12:30 Subjective/Events-last exam 08/16/2022: Patient doing pretty well Set for discharge tomorrow No other concerns 08/15/2022: Patient did experience a fever today similar to 2 months ago This appears to be an inflammatory type response and not sepsis We will check septic protocol if fever persist and we will check labs in the morning regardless Complaining of pain everywhere and he is on chronic narcotics and I do not feel comfortable increasing the amount he is on 08/14/2022: No major issues Less weakness Improved hyponatremia Neuropathy discussed FCI narcs management discussed Review of Systems General: Fatigue, Malaise Musculoskeletal: arm pain, back pain, leg pain Objective Exam Vital Signs Vital Signs Date Time Temp Pulse Resp B/P (MAP) Pulse Ox O2 Delivery O2 Flow Rate FiO2 08/16/22 20:19 37.1 58 16 135/76 (95) 92 Room Air 08/15/22 07:25 21 08/15/22 07:21 0.00 Capillary Refill : General Appearance: WD/WN, Chronically ill, Obese HEENT: PERRL/EOMI, Normal ENT Inspection, Pharynx Normal Neck: Full Range of Motion, Normal Inspection, Non Tender, Supple, Carotid Bruit Respiratory: Chest Non Tender, Lungs Clear, Normal Breath Sounds, No Accessory Muscle Use, No Respiratory Distress Cardiovascular: Regular Rate, Rhythm, No Edema, No Gallop, No JVD, No Murmur, Normal Peripheral Pulses Gastrointestinal: Normal Bowel Sounds, No Organomegaly, No Pulsatile Mass, Non Tender, Soft Back: Normal Inspection, No CVA Tenderness, No Vertebral Tenderness Extremity: Normal Capillary Refill, Normal Inspection, Normal Range of Motion, Non Tender, No Calf Tenderness, No Pedal Edema Neurologic/Psychiatric: Alert, wood caulker II-XII Norm as Tested, Abnormal Gait, Depres sed Affect, Motor Weakness, Sensory Deficit (Bilateral feet) Skin: Normal Color, Warm/Dry Lymphatic: No Adenopathy Results/Procedures Lab Laboratory Tests 08/16/22 05:34 Patient resulted labs reviewed. [facility]IM Transfers Therapy Code Descriptions/Definitions Functional [place] Measure: 0=Not Assessed/NA 4=Minimal Assistance 1=Total Assistance 5=Supervision or Setup 2=Maximal Assistance 6=Modified [place] 3=Moderate Assistance 7=Complete IndependenceSCALE: Activities may be completed with or without assistive devices. 9-Elbuotuekt-txjfzis completes the activity by him/herself with no assistance from a helper. 5-Set-up or Clean-up Assistance-helper sets up or cleans up; patient completes activity. [place] assists only prior to or following the activity. 4-Supervision or Touching Assistance-helper provides verbal cues and/or touching/steadying and/or contact guard assistance as patient completes activity. Assistance may be provided throughout the activity or intermittently. 3-Partial/Moderate Assistance-helper does LESS THAN HALF the effort. [place] lifts, holds or supports trunk or limbs, but provides less than half the effort. 2-Substantial/Maximal Assistance-helper does MORE THAN HALF the effort. [place] lifts or holds trunk or limbs and provides more than half the effort. 2-Zzlmehjrn-ukciyt does ALL the effort. Patient does none of the effort to c omplete the activity. Or, the assistance of 2 or more helpers is required for the patient to complete the activity. If activity was not attempted, code reason: 7-Patient Refused. 9-Not Applicable-not attempted and the patient did not perform the activity before the current illness, exacerbation or injury. 10-Not Attempted due to Environmental Limitations-(lack of equipment, weather restraints, etc.). 88-Not Attempted due to Medical Conditions or Safety Concerns. Roll Left to Right (QC): 6 Sit to Lying (QC): 6 Sit to Stand (QC): 6 Chair/Ith-cl-Eugrm Xfer(QC): 6 Car Transfer (QC): 4 Gait Training Does the Patient Walk?: Yes Walk 10 feet (QC): 4 Walk 50 ft with 2 Turns(QC): 4 Walk 150 ft (QC): 4 Walking 10ft/uneven surface-QC: 4 Gait Persons Needed: 1 Gait Assistive Device: FWW Wheelchair Training Does the Pt Use a Wheelchair?: No Wheel 50 ft with 2 turns (QC): 3 Wheel 150 ft (QC): 88 Type of Wheelchair: Manual Stair Training #of Steps: 1 1 Step (curb) (QC): 4 4 Steps (QC): 88 12 Steps (QC): 88 Balance Picking up an Object (QC): 4 (CGA using a commercial green building designer) ADL-Treatment Eating (QC): 4 (pt reports using heavy/built up silverware at home due to temors) Oral Hygiene (QC): 4 (CGA due to fatigue and fall risk) Shower/Bathe Self (QC): 4 Upper Body Dressing (QC): 5 Lower Body Dressing (QC): 3 (min assist) On/Off Footwear (QC): 3 Toileting Hygiene (QC): 4 Toilet Transfer (QC): 4 (CGA) Assessment/Plan Assessment and Plan Assess & Plan/Chief Complaint Patient resulted labs reviewed. Imaging: Reviewed Imaging Films, Reviewed Imaging Report Imaging Head CT 08/11/22: IMPRESSION: No identified acute intracranial abnormality. Bilateral Knee Xray 08/11/22: IMPRESSION: 1. No acute fracture or dislocation in the bilateral knees. 2. Bilateral prior total knee arthroplasties. No periprosthetic fracture or loosening. 3. Bilateral small joint effusions in the knees. Bilateral pelvis/hip xray 08/11/22: IMPRESSION: No identified acute bony abnormality of the pelvis or either hip. Chest Xray 08/11/22: IMPRESSION: No identified acute cardiopulmonary abnormality. OUTSIDE IMAGING REPORTS MRI Brain 06/10/22: 1. Few small patchy elina of T2 whte matter hyperintensity in the periventricular and subcortical white matter likley related to chronic microvascular injury. 2. No acute intracranial process. MRI C Spine 06/10/22: 1. Severe degenerative changes noted in the mid to lower cervical spine with multilevel moderate to severe spinal stenosis, most prominent at C6-C7 level. 2. Cord flattening, probably cord gliosis/edema at C6-C7. 3. Marrow edema/abnormal signal noted at several levels in the the cervical spine from C3 through C7. Would favor discogenic marrow changes; however, infection or neoplasm not completely excluded. MRI Thoracic spine 06/10/22: 1. Mild sponylosis and disc bulging at several levels in the mid to lower thoracic spine. No level with disc herniation or spinal stenosis is noted. 2. Heterogenous marrow signal in thoracic spine with focal T10 vertebral body lesion noted. CT Thoracic spine w/out contrast 06/11/22: 1. No destructive bone lesion is visible in the T10 vertebral body where an indeterminate area of abnormal signal is identified on recent MRI of thoracic spine. Assessment/Plan Admission Diagnosis Weakness and hx of falls in setting of cervical spinal stenosis Admission Status: Inpatient Order (span 2 midnights) Reason for Inpatient Admission: Generalized weakness due to cervical spinal stenosis Assessment and Plan Assessment: Mr. Garland Solano is a 57 y/o M with PMH of chronic pain, HTN, and cervical spinal stenosis who presented to the hospital on 08/10/22 for generalized weakness, falls, and headache likely due to his known cervical spinal stenosis. Plan: 1. Generalized weakness due to Cervical spinal stenosis of C6-C7. - Outside imaging results faxed over and review. (see imaging for reports) - Initial neurology consultation faxed over, but post-imaging note not faxed over yet. - Bilateral lower extremities weakness > bilateral upper extremities weakness - pt has follow up with Neurosurgery on 08/24/22 to assess surgical candidacy > PT/OT > Cont Gabapentin 1200mg TID > Cont Dilaudid 0.5mg IV q2 hr PRN > Cont Oxy 10mg q4 hr PRN 2. Confusion likely secondary to Hyponatremia > Fluid restriction > Sodium chloride 1gm tab BID > Consider Urine Na workup if continues to have hyponatremia 3. Constipation - last bowel movement 2 days ago, typically is regular > Cont Docusate 100mg BID 4. Hx of HTN > Cont amlopidine 5mg > Cont Clonidine 0.1 mg q4 PRN Dispo: will likely need placement at nursing facility until can be seen for neurosurgery consultation Diet: regular diet DVT PPX: Lovenox Code: Full code Assessment: Cervical spine stenosis causing severe weakness and neurological deficits Hyponatremia Hypertension Status post acute kidney injury Dehydration Chronic pain Narcotic dependence Narcotic bowel with current constipation Plan: PT OT regimen Bowel regimen Fluid restriction 08/14/2022: Monitor pain Aggressive therapy 08/15/2022: Fever monitoring Joint pain 08/16/2022: Dramatic improvement Labs reviewed Discharge plan tomorrow (1) Cervical spinal stenosis Status: Acute (2) Generalized weakness Status: Acute (3) Hyponatremia Status: Acute (4) Renal insufficiency Status: Acute (5) Essential hypertension PATSY COONEY DO Aug 16, 2022 06:20
[2022-08-16 07:54] VITALS: BP 153/70
[2022-08-16] MEDS: buPROPion SR 150 MG (WELLBUTRIN SR) TAB PO SCH ×2 (08:01→20:25)
[2022-08-16] MEDS: LORATADINE (CLARITIN) 10 MG TAB PO SCH (08:01)
[2022-08-16] MEDS: PRIMIDONE 50 MG TAB (MYSOLINE) PO SCH ×3 (08:01→20:24)
[2022-08-16] MEDS: hydrOXYzine (VISTARIL/ATARAX) 25 MG capsule/tablet PO SCH ×2 (08:01→20:24)
[2022-08-16] MEDS: amLODIPine 5 MG (NORVASC) TAB PO SCH (08:01)
[2022-08-16] MEDS: DULoxetine 30 MG (CYMBALTA) CAP PO SCH ×3 (08:01→20:25)
[2022-08-16] MEDS: VITAMIN D3 25 MCG (1,000 UNITS) TABLET PO SCH (08:01)
[2022-08-16] MEDS: metFORMIN 500 MG (GLUCOPHAGE) TAB PO SCH ×2 (08:01→20:25)
[2022-08-16] MEDS: MULTIVIT W/MINERALS TAB (THERAGRAN M) PO SCH (08:01)
[2022-08-16] MEDS: SODIUM CHLORIDE 1 GM TABLET PO SCH ×2 (08:02→20:28)
[2022-08-16] MEDS: TIMOLOL MALEATE 0.5% 5 ML (TIMOPTIC) BTL OU SCH ×3 (08:02→20:26)
[2022-08-16] MEDS: CELECOXIB 100 MG (CeleBREX) CAP PO SCH (08:02)
[2022-08-16] MEDS: GABAPENTIN 600 MG (NEURONTIN) TAB PO SCH ×2 (08:02→13:53)
[2022-08-16] MEDS: PANTOPRAZOLE 40 MG (PROTONIX) TAB PO SCH (08:02)
[2022-08-16] MEDS: SENNA W/DOCUSATE (SENOKOT S) TABLET PO SCH ×2 (08:03→20:29)
[2022-08-16] MEDS: lisINopril 20 MG (PRINIVIL) TABLET PO SCH (08:04)
[2022-08-16] MEDS: polyethylene glycoL POWDER 17 GM (MIRALAX) PACK PO SCH ×2 (08:04→20:30)
[2022-08-16] MEDS: DICLOFENAC 1% GEL 100 GM (VOLTAREN) TUBE TOP SCH ×4 (08:05→20:26)
[2022-08-16] MEDS: DOCUSATE SODIUM 100 MG (COLACE) CAP PO SCH ×2 (08:05→20:30)
--- NOTE | 2022-08-16 08:54 | Occupational Ther Daily Note ---
OT Current Status-Daily Note Subjective Pt laying in bed upon arrival. Pt states he is going home tomorrow so he doesn't know why he can't start doing things himself (going into bathroom, shower, etc.). Appearance Pt left laying in bed with all needs met. Mental Status/Objective Patient Orientation: Person, Place, Time ADL-Treatment Therapy Code Descriptions/Definitions Functional [place] Measure: 0=Not Assessed/NA 4=Minimal Assistance 1=Total Assistance 5=Supervision or Setup 2=Maximal Assistance 6=Modified [place] 3=Moderate Assistance 7=Complete IndependenceSCALE: Activities may be completed with or without assistive devices. 2-Gvyjlyevzn-hpljuvk completes the activity by him/herself with no assistance from a helper. 5-Set-up or Clean-up Assistance-helper sets up or cleans up; patient completes activity. [place] assists only prior to or following the activity. 4-Supervision or Touching Assistance-helper provides verbal cues and/or touching/steadying and/or contact guard assistance as patient completes activity. Assistance may be provided throughout the activity or intermittently. 3-Partial/Moderate Assistance-helper does LESS THAN HALF the effort. [place] lifts, holds or supports trunk or limbs, but provides less than half the effort. 2-Substantial/Maximal Assistance-helper does MORE THAN HALF the effort. [place] lifts or holds trunk or limbs and provides more than half the effort. 8-Urpxsqzfj-gutege does ALL the effort. Patient does none of the effort to complete the activity. Or, the assistance of 2 or more helpers is required for the patient to complete the activity. If activity was not attempted, code reason: 7-Patient Refused. 9-Not Applicable-not attempted and the patient did not perform the activity before the current illness, exacerbation or injury. 10-Not Attempted due to Environmental Limitations-(lack of equipment, weather restraints, etc.). 88-Not Attempted due to Medical Conditions or Safety Concerns. Eating (QC): 6 Oral Hygiene (QC): 6 Shower/Bathe Self (QC): 4 Upper Body Dressing (QC): 6 Lower Body Dressing (QC): 5 On/Off Footwear: 6 Toileting Hygiene (QC): 6 Toilet Transfer (QC): 6 At the beginning of the session, pt required education on the importance of calling for nursing to toilet or shower, due to safety and being a fall risk with the increased pain and instability he has in his neck, back, and knees. Pt picked out clothing, then ambulated to shower with SBA. He showed increased independence with ambulation today, but was still SBA/CGA for all transfers/ambulation due to history of falls, pain, and instability. Pt completed shower 100% in standing with supervision for safety; cues given about energy conservation. LHS utilized to wash below waist. Discussion on purchase of shower chair post discharge. Pt sat to don lower body clothes with maintenance apprentice, standing to cotton puller hips. Pt ambulated to chair to don socks with independence using sock aide. Vitals taken after pt broke out in a sweat; BP 178/79 with HR 78. After several minutes of rest, pt practiced stairs and then reported being dizzy and needing to sit. Vitals taken again, BP 177/79 with HR 76 BPM. Pt was educated again about energy conservation and safety during all tasks once at home. Education OT Patient Education: Correct positioning, Energy conservation, Modified ADL techniques, Progress toward Goal/Update tx plan, Purpose of tx/functional activities, Reviewed precautions, Rehab process, Safety issues, Transfer techniques, Use of adapted equipment Teaching Recipient: Patient Teaching Methods: Demonstration, Discussion Response to Teaching: Verbalize Understanding, Reinforcement Needed OT Short Term Goals Short Term Goals Time Frame: Aug 26, 2022 Eatin Oral hygiene: 5 Toileting hygiene: 4 Shower/bathe self: 3 Upper body dressin Lower body dressin Putting on/taking off footwear: 3 OT Residential Goals Diesel Service Apprentice Goals Time Frame: Sep 04, 2022 Acute change in mental status: 0 Inattention: 0 Disorganized thinkin Altered level of consciousness: 0 Eating (QC): 6 (met) Oral Hygiene (QC): 6 (met) Toileting Hygiene (QC): 5 (met) Shower/Bathe Self (QC): 5 (not met due to cues for safety) Upper Body Dressing (QC): 6 (mt) Lower Body Dressing (QC): 5 (met) On/Off Footwear (QC): 5 (met) Additional Goals: 1-Demonstrate ADL Tasks, 2-Verbalize Understanding, 3- ImproveStrength/Rogers 1=Demonstrate adherence to instructed precautions during ADL tasks. 2=Patient will verbalize/demonstrate understanding of assistive devices/modifications for ADL. 3=Patient will improve strength/tolerance for activity to enable patient to perform ADL's. OT Education/Plan Problem List/Assessment Assessment: Decreased Activ Tolerance, Decreased Safety Aware, Decreased UE Strength, Impaired Cognition, Impaired Coordination, Impaired Funct Balance, Impaired I ADL's, Impaired Self-Care Skills Discharge Recommendations Plan/Recommendations: Continue POC Therapy Discharge Recommendati: Bath Aide, Homemaker Support, Home & Family, Post Acute OT Equpiment Recommendations-D/C: Bath Chair, Jeweler Apprentice Treatment Plan/Plan of Care Treatment,Training & Education: Yes Patient would benefit from OT for education, treatment and training to promote independence in ADL's, mobility, safety and/or upper extremity function for ADL's. Plan of Care: ADL Retraining, Caregiver Training, Functional Mobility, Group Exercise/Act as Ind, UE Funct Exercise/Act Treatment Duration: Sep 04, 2022 Frequency: At least 5 of 7 days/Wk (IRF) Estimated Hrs Per Day: 1.5 hours per day (60-90 min/day) Agreement: Yes Rehab Potential: Fair Time/GCodes Start Time: 07:45 Stop Time: 09:00 Total Time Billed (hr/min): 75 Billed Treatment Time 1 visit ADL x4 (60 min) FA (15 min) Co-treat with PT: 2925-5025 Sepideh Varela OT Aug 16, 2022 08:54
--- NOTE | 2022-08-16 08:58 | Physical Therapy Daily Note ---
PT Daily Note-Current Subjective Pt. agrees to Rx, states he is not worried about returning home, feels he will do well. Pt. uses a ramp at home but agrees to try steps here. Pt. rates right knee pain at 9/10. Pt. c/o dizziness while doing steps after up and down 6 steps and declined to do further steps Pain Numeric Pain Scale: 9 Location: Right Location Body Site: Knee Pain Description: Ache Section J - Health Conditions 1. Rarely or not at all 2. Occasionally 3. Frequently 4. Almost constantly 8. Unable to answer Pain Effect on Sleep: 3 Pain Interference with Therapy: 4 Pain Interference w/Day-to-Day: 4 Mental Status Patient Orientation: Normal For Age Transfers SCALE: Activities may be completed with or without assistive devices. 0-Nmmrybddhl-wlwzflb completes the activity by him/herself with no assistance from a helper. 5-Set-up or Clean-up Assistance-helper sets up or cleans up; patient completes activity. [place] assists only prior to or following the activity. 4-Supervision or Touching Assistance-helper provides verbal cues and/or touching/steadying and/or contact guard assistance as patient completes activity. Assistance may be provided throughout the activity or intermittently. 3-Partial/Moderate Assistance-helper does LESS THAN HALF the effort. [place] lifts, holds or supports trunk or limbs, but provides less than half the effort. 2-Substantial/Maximal Assistance-helper does MORE THAN HALF the effort. [place] lifts or holds trunk or limbs and provides more than half the effort. 7-Shnfgwtim-hmpuyd does ALL the effort. Patient does none of the effort to complete the activity. Or, the assistance of 2 or more helpers is required for the patient to complete the activity. If activity was not attempted, code reason: 7-Patient Refused. 9-Not Applicable-not attempted and the patient did not perform the activity before the current illness, exacerbation or injury. 10-Not Attempted due to Environmental Limitations-(lack of equipment, weather restraints, etc.). 88-Not Attempted due to Medical Conditions or Safety Concerns. Roll Left & Right (QC): 6 Sit to Lying (QC): 6 Lying to Sitting/Side of Bed(Q: 6 Sit to Stand (QC): 6 Chair/Zjr-rc-Jctlu Xfer(QC): 6 Toilet Transfer (QC): 6 Car Transfer (QC): 6 Gait Training Does the Patient Walk?: Yes Walk 10 feet (QC): 6 Walk 50 ft with 2 Turns(QC): 6 Walk 150 ft (QC): 6 Walking 10ft/uneven surface-QC: 6 Gait Persons Needed: 1 Gait Assistive Device: FWW no LOB, slow, head down at times, mild to mod kyphosis Wheelchair Training Does the Pt Use a Wheelchair?: No Stair Training Stair Training: Handrails/: 2 handrails #of Steps: 6 1 Step (curb) (QC): 4 4 Steps (QC): 4 12 Steps (QC): 88 Stairs: Pattern: Step to pt. c/o dizziness after up down 6 steps ad declined further step training/testing ( see assessment BP etc below) Balance Picking up an Object (QC): 6 (uses document reviewer ) Exercises Supine Ex: Rolling, Straight leg raise, Hip abd/add Supine Reps: 10 Seated Therapy Exercises: Ankle pumps, Sit to stand, Long arc quads, Hip flexion Seated Reps: 10 Treatments co Rx PT OT for safety and coordination of balance and assessing pts status . QCs completed, showering and dressing etc gait, stairs, TRFs etc see Rx documentation. after Rx pt. requested to lay down, R LE elevated on pillow, cold pack applied to knee near full circumference, pt. remarks on how comforting this is Assessment Current Status: Good Progress pt. was noted to have diaphoresis during car TRF, BP 178/79 HR 78, O2 sats WNLs. c/o dizziness on stairs, BP 177/79, HR 76 PT Short Term Goals Short Term Goals Time Frame: Aug 20, 2022 Roll Left & Right: 6 Sit to lyin Lying to sitting on side of be: 6 Sit to stand: 4 (SBA) Chair/qoa-bi-wwtcv transfer: 4 (SBA) Walk 10 feet: 4 (SBA) Walk 50 feet with two turns: 4 (SBA) Walk 150 feet: 4 (SBA) PT Retirement Goals [place] Goals PT [place] Goals Time Frame: Sep 03, 2022 Roll Left & Right (QC): 6 Sit to Lying (QC): 6 Lying-Sitting on Side/Bed(QC): 6 Sit to Stand (QC): 6 Chair/Lzk-ad-Sydfc Xfer(QC): 6 Toilet Transfer (QC): 6 Car Transfer (QC): 6 Does the Patient Walk: Yes Walk 10 feet (QC): 6 Walk 50ft with 2 Turns (QC): 6 Walk 150 ft (QC): 6 Walking 10ft on Uneven Surface: 6 1 Step (curb) (QC): 4 4 Steps (QC): 4 12 Steps (QC): 88 Picking up an Object (QC): 4 (SBA) Wheel 50 feet with 2 turns (QC: 9 Wheel 150 feet: 9 PT Plan Treatment/Plan Treatment Plan: Continue Plan of Care Treatment Plan: Education, Functional Activity [place], Functional Strength, Gait, Safety, Therapeutic Exercise, Transfers Treatment Duration: Sep 03, 2022 Frequency: At least 5 of 7 days/Wk (IRF) Estimated Hrs Per Day: 1.5 hours per day Patient and/or Family Agrees t: Yes Safety Risks/Education Patient Education: Gait Training, Transfer Techniques, Steps, Reviewed Precautions (referring to safety secondary to cervical vulnerability), Correct Positioning, Disease Process, Safety Issues Teaching Recipient: Patient Teaching Methods: Demonstration, Discussion Response to Teaching: Verbalize Understanding, Return Demonstration, Reinforcement Needed Time/GCodes Time In: 745 Time Out: 900 Total Billed Treatment Time: 75 Total Billed Treatment 1,FA55m,GT20m ( PT OT co Rx 75 m) JOEL IBANEZ DIRECTOR OF RESEARCH AND DEVELOPMENT Aug 16, 2022 08:58
--- NOTE | 2022-08-16 10:35 | IRF PAI BIMS ---
BIMS CAM BIMS Expression of Ideas and Wants: Without Difficulty Understanding Verbal Content: Usually Understands Brief Interview/Mental Status: Yes IRF BECK BIMS: IRF BECK BIMS Response (Comments) Value Repitition of Three Words Three 3 Recalls Socks Yes, No Cue Required 2 Recalls Blue Yes, No Cue Required 2 Recalls Bed Yes, No Cue Required 2 Year Correct 3 Month Accurate Within 5 Days 2 Day Correct 1 Total 15 Should Staff Asses. Mental St.: No Notes: CAM Mental Status Change/Baseline: 0 Inattention: 0 Disorganized thinkin Altered level of consciousness: 0 Sepideh Varela OT Aug 16, 2022 10:35
--- NOTE | 2022-08-16 13:10 | Speech Therapy Daily Note ---
Speech Daily Progress Note Subjective Date Seen by Provider: Aug 16, 2022 Time Seen by Provider: 09:00 The patient was lying in bed, sleeping, upon entrance to his room by the clinician. The patient required consistent verbal prompts to remain at an appropriate level of alertness for participation in the skilled cognitive linguistic treatment session. Objective The patient remains difficult to keep in a wakeful state throughout the treatment session. Due to the fatigue, the patient communicated in one word responses and word-finding strategies could not be attempted. The patient remains independently oriented to self, location, month, day of the week, and year. The patient was able to complete functional recall tasks of his recent physical therapy session and the prior evening. Assessment Assessment Current Status: Fair Progress Treatment Plan Continue Plan of Care Speech Short Term Goals Short Term Goals Short Term Goals 1. The patient will demonstrate 90% accuracy with word-finding exercises with mild clinician verbal cueing. Time Frame-STG: One Week. Speech Intermediate Goals Intermediate Goals 1. The patient will demonstrate an improvement with cognitive linguistic skills for safe discharge to the least restrictive environment. Time Frame: Ten Days. Speech-Plan Treatment Plan Speech Therapy Treatment Plan: Continue Plan of Care Treatment Duration: Aug 23, 2022 Frequency: Modified Program (IRF) (Four to Five Times per Week.) Estimated Hrs Per Day: .5 hour per day Rehab Potential: Fair Safety Risks/Education Teaching Recipient: Patient Teaching Methods: Discussion Response to Teaching: Reinforcement Needed Education Topics Provided: Functional Recall Time Speech Therapy Time In: 09:00 Speech Therapy Time Out: 09:30 Total Billed Time: 30 Billed Treatment Time VIMAL Calvillo DEEPIKA POLK Aug 16, 2022 13:10
[2022-08-16 20:19] VITALS: BP 135/76
[2022-08-16] MEDS: GABAPENTIN 400 MG (NEURONTIN) CAP PO SCH (20:24)
[2022-08-16] MEDS: traZODone 100 MG (DESYREL) TAB PO SCH (20:25)
[2022-08-16] MEDS: ENOXAPARIN 40 MG/0.4 ML (LOVENOX) SYR SC SCH (20:25)
[2022-08-17] MEDS: ACETAMINOPHEN 325 MG TABLET PO PRN (04:49)
[2022-08-17] MEDS: LORazepam 0.5 MG (ATIVAN) TABLET PO PRN (04:50)
--- NOTE | 2022-08-17 05:40 | Discharge Summary ---
Diagnosis/Chief Complaint Date of Admission Aug 13, 2022 at 09:00 Date of Discharge Discharge Date: Aug 17, 2022 Discharge Diagnosis Admission Diagnosis Weakness and hx of falls in setting of cervical spinal stenosis Admission Status: Inpatient Order (span 2 midnights) Reason for Inpatient Admission: Generalized weakness due to cervical spinal stenosis Assessment and Plan Assessment: Mr. Garland Solano is a 57 y/o M with PMH of chronic pain, HTN, and cervical spinal stenosis who presented to the hospital on 08/10/22 for generalized weakness, falls, and headache likely due to his known cervical spin al stenosis. Plan: 1. Generalized weakness due to Cervical spinal stenosis of C6-C7. - Outside imaging results faxed over and review. (see imaging for reports) - Initial neurology consultation faxed over, but post-imaging note not faxed over yet. - Bilateral lower extremities weakness > bilateral upper extremities weakness - pt has follow up with Neurosurgery on 08/24/22 to assess surgical candidacy > PT/OT > Cont Gabapentin 1200mg TID > Cont Dilaudid 0.5mg IV q2 hr PRN > Cont Oxy 10mg q4 hr PRN 2. Confusion likely secondary to Hyponatremia > Fluid restriction > Sodium chloride 1gm tab BID > Consider Urine Na workup if continues to have hyponatremia 3. Constipation - last bowel movement 2 days ago, typically is regular > Cont Docusate 100mg BID 4. Hx of HTN > Cont amlopidine 5mg > Cont Clonidine 0.1 mg q4 PRN Dispo: will likely need placement at nursing facility until can be seen for neurosurgery consultation Diet: regular diet DVT PPX: Lovenox Code: Full code Assessment: Cervical spine stenosis causing severe weakness and neurological deficits Hyponatremia Hypertension Status post acute kidney injury Dehydration Chronic pain Narcotic dependence Narcotic bowel with current constipation Plan: PT OT regimen Bowel regimen Fluid restriction 08/14/2022: Monitor pain Aggressive therapy 08/15/2022: Fever monitoring Joint pain 08/16/2022: Dramatic improvement Labs reviewed Discharge plan tomorrow (1) Cervical spinal stenosis Status: Acute (2) Generalized weakness Status: Acute (3) Hyponatremia Status: Acute (4) Renal insufficiency Status: Acute (5) Essential hypertension Discharge Summary Discharge Physical Examination Allergies: Coded Allergies: meperidine (Verified Allergy, Unknown, TACHYCARDIA, 06/08/22) Vitals & I&Os Vital Signs Date Time Temp Pulse Resp B/P (MAP) Pulse Ox O2 Delivery O2 Flow Rate FiO2 08/17/22 17:15 36.4 79 20 177/77 96 Room Air 0.00 08/15/22 07:25 21 General Appearance: Alert, Oriented X3, Cooperative Respiratory: Clear to Auscultation Cardiovascular: Regular Rate Psych/Mental Status: Mental Status NL Hospital Course Was the Problem List Reviewed?: Yes Uneventful and short hospital course and rehab after he was admitted for generalized weakness and hyponatremia with acute kidney injury from dehydration. Overall he was able to participate in therapy although chronic pain and narcotic dependence slow recovery he did resume his normal independent ADL status and ambulatory status with use of assistive devices. Labs remained stable he did have an isolated fever without source and he was deemed stable for discharge. He will see follow-up with neurosurgery on 1028 to evaluate cervical spine surgery option. Labs (last 24 hrs) Laboratory Tests 08/14/22 05:37: White Blood Count 6.5, Red Blood Count 2.99L, Hemoglobin 9.6L, Hematocrit 29L, Mean Corpuscular Volume 97, Mean Corpuscular Hemoglobin 32, Mean Corpuscular Hemoglobin Concent 33, Red Cell Distribution Width 13.2, Platelet Count 280, Mean Platelet Volume 9.1, Immature Granulocyte % (Auto) 1, Neutrophils (%) (Auto) 66, Lymphocytes (%) (Auto) 15, Monocytes (%) (Auto) 13H, Eosinophils (%) (Auto) 5, Basophils (%) (Auto) 1, Neutrophils # (Auto) 4.3, Lymphocytes # (Auto) 1.0, Monocytes # (Auto) 0.8, Eosinophils # (Auto) 0.3, Basophils # (Auto) 0.1, Immature Granulocyte # (Auto) 0.0, Sodium Level 132L, Potassium Level 4.3, Chloride Level 96L, Carbon Dioxide Level 27, Anion Gap 9, Blood Urea Nitrogen 11, Creatinine 1.10, Estimat Glomerular Filtration Rate 79, BUN/Creatinine Ratio 10, Glucose Level 162H, Calcium Level 8.8, Corrected Calcium 9.4, Total Bilirubin 0.4, Aspartate Amino Transf (AST/SGOT) 11, Alanine Aminotransferase (ALT/SGPT) 12, Alkaline Phosphatase 55, Total Protein 5.9L, Albumin 3.3 08/16/22 05:34: White Blood Count 5.1, Red Blood Count 2.98L, Hemoglobin 9.6L, Hematocrit 29L, Mean Corpuscular Volume 96, Mean Corpuscular Hemoglobin 32, Mean Corpuscular Hemoglobin Concent 34, Red Cell Distribution Width 13.0, Platelet Count 311, Mean Platelet Volume 9.1, Immature Granulocyte % (Auto) 1, Neutrophils (%) (Auto) 62, Lymphocytes (%) (Auto) 17, Monocytes (%) (Auto) 19H, Eosinophils (%) (Auto) 1, Basophils (%) (Auto) 1, Neutrophils # (Auto) 3.1, Lymphocytes # (Auto) 0.8L, Monocytes # (Auto) 1.0, Eosinophils # (Auto) 0.1, Basophils # (Auto) 0.0, Immature Granulocyte # (Auto) 0.0, Sodium Level 131L, Potassium Level 4.4, Chloride Level 95L, Carbon Dioxide Level 27, Anion Gap 9, Blood Urea Nitrogen 10, Creatinine 1.15, Estimat Glomerular Filtration Rate 75, BUN/Creatinine Ratio 9, Glucose Level 142H, Calcium Level 8.7, Corrected Calcium 9.1, Total Bilirubin 0.4, Aspartate Amino Transf (AST/SGOT) 18, Alanine Aminotransferase (ALT/SGPT) 17, Alkaline Phosphatase 60, Total Protein 6.5, Albumin 3.5, Procalcitonin 0.05 Pending Labs Laboratory Tests 08/14/22 05:37: White Blood Count 6.5, Red Blood Count 2.99, Hemoglobin 9.6, Hematocrit 29, Mean Corpuscular Volume 97, Mean Corpuscular Hemoglobin 32, Mean Corpuscular Hemoglobin Concent 33, Red Cell Distribution Width 13.2, Platelet Count 280, Mean Platelet Volume 9.1, Immature Granulocyte % (Auto) 1, Neutrophils (%) (Auto) 66, Lymphocytes (%) (Auto) 15, Monocytes (%) (Auto) 13, Eosinophils (%) (Auto) 5, Basophils (%) (Auto) 1, Neutrophils # (Auto) 4.3, Lymphocytes # (Auto) 1.0, Monocytes # (Auto) 0.8, Eosinophils # (Auto) 0.3, Basophils # (Auto) 0.1, Immature Granulocyte # (Auto) 0.0, Sodium Level 132, Potassium Level 4.3, Chloride Level 96, Carbon Dioxide Level 27, Anion Gap 9, Blood Urea Nitrogen 11, Creatinine 1.10, Estimat Glomerular Filtration Rate 79, BUN/Creatinine Ratio 10, Glucose Level 162, Calcium Level 8.8, Corrected Calcium 9.4, Total Bilirubin 0.4, Aspartate Amino Transf (AST/SGOT) 11, Alanine Aminotransferase (ALT/SGPT) 12, Alkaline Phosphatase 55, Total Protein 5.9, Albumin 3.3 08/16/22 05:34: White Blood Count 5.1, Red Blood Count 2.98, Hemoglobin 9.6, Hematocrit 29, Mean Corpuscular Volume 96, Mean Corpuscular Hemoglobin 32, Mean Corpuscular Hemoglobin Concent 34, Red Cell Distribution Width 13.0, Platelet Count 311, Me an Platelet Volume 9.1, Immature Granulocyte % (Auto) 1, Neutrophils (%) (Auto) 62, Lymphocytes (%) (Auto) 17, Monocytes (%) (Auto) 19, Eosinophils (%) (Auto) 1, Basophils (%) (Auto) 1, Neutrophils # (Auto) 3.1, Lymphocytes # (Auto) 0.8, Monocytes # (Auto) 1.0, Eosinophils # (Auto) 0.1, Basophils # (Auto) 0.0, Immature Granulocyte # (Auto) 0.0, Sodium Level 131, Potassium Level 4.4, Chloride Level 95, Carbon Dioxide Level 27, Anion Gap 9, Blood Urea Nitrogen 10, Creatinine 1.15, Estimat Glomerular Filtration Rate 75, BUN/Creatinine Ratio 9, Glucose Level 142, Calcium Level 8.7, Corrected Calcium 9.1, Total Bilirubin 0.4, Aspartate Amino Transf (AST/SGOT) 18, Alanine Aminotransferase (ALT/SGPT) 17, Alkaline Phosphatase 60, Total Protein 6.5, Albumin 3.5, Procalcitonin 0.05 Discharge Home Medications: Active Scripts Active Reported Vitamin D3 (Cholecalciferol (Vitamin D3)) 25 Mcg (1000 Unit) Tablet 25 Mcg PO DAILY Vitamin B Complex 1 Each Tablet 1 Each PO DAILY Multi-Vitamin Daily (Multivitamin) 1 Each Tablet 1 Each PO DAILY Tylenol Pm Ex-Strength Caplet (Acetaminophen/Diphenhydramine) 500 Mg-25 Mg Tablet 2 Each PO HS PRN Atorvastatin Calcium 20 Mg Tablet 20 Mg PO DAILY Pantoprazole Sodium 40 Mg Tablet.dr 40 Mg PO DAILY Lisinopril 20 Mg Tablet 20 Mg PO DAILY Gabapentin 600 Mg Tablet 1,200 Mg PO 0800,1200 TAKES 2 (600MG) TAB Mysoline (Primidone) 50 Mg Tablet 50 Mg PO TID Trazodone HCl 100 Mg Tablet 100 Mg PO HS Hydroxyzine HCl 50 Mg Tablet 50 Mg PO BID Gabapentin 400 Mg Capsule 1,200 Mg PO HS TAKES 3 (400MG) CAPS Duloxetine HCl 30 Mg Capsule.dr 30 Mg PO TID Timoptic (Timolol Maleate) 0.5 % Drops 1 Drop OU TID Amlodipine Besylate 5 Mg Tablet 5 Mg PO DAILY Bupropion Xl (Bupropion HCl) 300 Mg Tab.er.24h 300 Mg PO DAILY Metformin HCl 500 Mg Tablet 500 Mg PO BID Celecoxib 100 Mg Capsule 100 Mg PO DAILY Oxycodone HCl 15 Mg Tablet 15 Mg PO QID PRN FILLED 08-03-2022 #120/30 DAY SUPPLY Instructions to patient/family Please see electronic discharge instructions given to patient. Diagnosis/Problems Diagnosis/Problems (1) Cervical spinal stenosis Status: Acute (2) Generalized weakness Status: Acute (3) Hyponatremia Status: Acute (4) Renal insufficiency Status: Acute (5) Essential hypertension PATSY COONEY DO Aug 17, 2022 05:40
[2022-08-17 07:30] VITALS: BP 177/77
[2022-08-17] MEDS: DULoxetine 30 MG (CYMBALTA) CAP PO SCH ×2 (09:46→12:29)
[2022-08-17] MEDS: buPROPion SR 150 MG (WELLBUTRIN SR) TAB PO SCH (09:46)
[2022-08-17] MEDS: VITAMIN D3 25 MCG (1,000 UNITS) TABLET PO SCH (09:46)
[2022-08-17] MEDS: CELECOXIB 100 MG (CeleBREX) CAP PO SCH (09:46)
[2022-08-17] MEDS: LORATADINE (CLARITIN) 10 MG TAB PO SCH (09:46)
[2022-08-17] MEDS: hydrOXYzine (VISTARIL/ATARAX) 25 MG capsule/tablet PO SCH (09:46)
[2022-08-17] MEDS: MULTIVIT W/MINERALS TAB (THERAGRAN M) PO SCH (09:46)
[2022-08-17] MEDS: amLODIPine 5 MG (NORVASC) TAB PO SCH (09:46)
[2022-08-17] MEDS: lisINopril 20 MG (PRINIVIL) TABLET PO SCH (09:46)
[2022-08-17] MEDS: PANTOPRAZOLE 40 MG (PROTONIX) TAB PO SCH (09:47)
[2022-08-17] MEDS: GABAPENTIN 600 MG (NEURONTIN) TAB PO SCH ×2 (09:47→12:29)
[2022-08-17] MEDS: PRIMIDONE 50 MG TAB (MYSOLINE) PO SCH ×2 (09:47→12:29)
[2022-08-17] MEDS: metFORMIN 500 MG (GLUCOPHAGE) TAB PO SCH (09:47)
[2022-08-17] MEDS: TIMOLOL MALEATE 0.5% 5 ML (TIMOPTIC) BTL OU SCH ×2 (09:50→12:29)
[2022-08-17] MEDS: polyethylene glycoL POWDER 17 GM (MIRALAX) PACK PO SCH (09:52)
[2022-08-17] MEDS: DOCUSATE SODIUM 100 MG (COLACE) CAP PO SCH (09:52)
[2022-08-17] MEDS: DICLOFENAC 1% GEL 100 GM (VOLTAREN) TUBE TOP SCH ×3 (09:53→17:12)
[2022-08-17] MEDS: SENNA W/DOCUSATE (SENOKOT S) TABLET PO SCH (09:53)
[2022-08-17] MEDS: SODIUM CHLORIDE 1 GM TABLET PO SCH (09:55)
[2022-08-17 17:15] VITALS: BP 177/77
--- NOTE | 2022-08-19 08:27 | Therapy Team Discharge Summary ---
Therapy Discharge Summary Discharge Recommendations Date of Discharge Aug 17, 2022 at 17:10 Therapy D/C Recommendations: Bath Aide, Intermittent Supervision, Retirement (TCU/NH) Physical Therapy Roll Left to Right (QC): 6 Sit to Lying (QC): 6 Lying to Sitting/Side of Bed(Q: 6 Sit to Stand (QC): 6 Chair/Aiy-jx-Bqmgx Xfer(QC): 6 Toilet Transfer (QC): 5 Car Transfer (QC): 6 Does the Patient Walk: Yes Mode of Locomotion: Walk Anticipated Mode of Locomotion: Walk Walk 10 feet (QC): 6 Walk 50 ft with 2 Turns(QC): 6 Walk 150 ft (QC): 6 Walking 10ft on uneven surface: 6 Distance: 100', 50' Gait Assistive Device: FWW Does the Pt Use a Wheelchair: No Wheel 50 ft with 2 turns (QC): 3 Wheel 150 ft (QC): 88 Type of Wheelchair: Manual #of Steps: 6 1 Step (curb) (QC): 4 4 Steps (QC): 4 12 Steps (QC): 88 Walking Assistive Device: Walker Balance Sitting Static: Normal Balance Sitting Dynamic: Normal Balance-Standing Static: Fair Picking up an Object (QC): 6 (uses stock manager ) Occupational Therapy Pt admitted to ARU with cervical spinal stenosis. At time of evaluation he was max a for footwear, min a for lower body dressing, CGA for toileting and bathing, SBA for eating, and set up for oral care and upper body dressing. During his rehab stay OT focused on overall strengthening, balance, energy conservation, AE, safety, endurance, compensatory strategies and memory in order to improve performance and independence in adls and functional mobility. At time of last treatment, pt did meet all of his tank terminal gauger goals (except bathing-SBA for safety). However, this was not consistent as Pt demonstrated fluctuating levels of assistance during his short rehab stay. While patient does not require any physical assistance with basic adls, he continued to exhibit impaired endurance, high fall risk behavior, poor safety awareness, severe pain levels, periods of diaphoresis, and high BP's. Pt also is in a vulnerable situation with regards to his cervical spinal cord and should have intermittent supervision until possible surgery. Because of this, OT does not recommend discharge home at this time. See above for D/C recommendations. Pt has already discharged from this facility and will be discharged from OT at this time. Decreased Activ Tolerance, Decreased Safety Aware, Decreased UE Strength, Impaired Cognition, Impaired Coordination, Impaired Funct Balance, Impaired I ADL's, Impaired Self-Care Skills Eating (QC): 6 Oral Hygiene (QC): 6 Shower/Bathe Self (QC): 4 Upper Body Dressing (QC): 6 Lower Body Dressing (QC): 5 On/Off Footwear (QC): 6 Toileting Hygiene (QC): 6 PT Halfway Goals Halfway Goals PT Halfway Goals Time Frame: Sep 03, 2022 PT OT Pain Eval : Comment: pt. also c/o pain in mid and low back at 10/10 Scoring Section J - Health Conditions 1. Rarely or not at all 2. Occasionally 3. Frequently 4. Almost constantly 8. Unable to answer Roll Left to Right (QC): 6 Sit to Lying (QC): 6 Lying-Sitting on Side/Bed(QC): 6 Sit to Stand (QC): 6 Chair/Jxy-si-Dpvlj Xfer(QC): 6 Toilet/Commode Transfer (QC): 6 Car Transfer (QC): 6 Does the Patient Walk: Yes Walk 10 feet (QC): 6 Walk 10ft-Uneven Surface(QC): 6 Walk 50ft with 2 Turns (QC): 6 Walk 150 ft (QC): 6 Wheel 50 feet with 2 turns (QC: 9 1 Step (curb) (QC): 4 4 Steps (QC): 4 12 Steps (QC): 88 Picking up an Object (QC): 4 (SBA) OT Halfway Goals Reading Specialist Goals Time Frame: Sep 04, 2022 Acute change in mental status: 0 Inattention: 0 Disorganized thinkin Altered level of consciousness: 0 Eating (QC): 6 (met) Oral Hygiene (QC): 6 (met) Toileting Hygiene (QC): 5 (met) Shower/Bathe Self (QC): 5 (not met due to cues for safety) Upper Body Dressing (QC): 6 (met) Lower Body Dressing (QC): 5 (met) On/Off Footwear (QC): 5 (met) Additional Goals: 1-Demonstrate ADL Tasks, 2-Verbalize Understanding, 3- ImproveStrength/Rogers 1=Demonstrate adherence to instructed precautions during ADL tasks. 2=Patient will verbalize/demonstrate understanding of assistive devices/modifications for ADL. 3=Patient will improve strength/tolerance for activity to enable patient to perform ADL's. Speech Halfway Goals Halfway Goals 1. The patient will demonstrate an improvement with cognitive linguistic skills for safe discharge to the least restrictive environment. Time Frame: Ten Days. Sepideh Varela OT Aug 19, 2022 08:27
--- NOTE | 2022-08-19 10:08 | Therapy Team Discharge Summary ---
Therapy Discharge Summary Discharge Recommendations Date of Discharge Aug 17, 2022 at 17:10 Therapy D/C Recommendations: Bath Aide, Intermittent Supervision, Alf (TCU/NH) Physical Therapy Roll Left to Right (QC): 6 Sit to Lying (QC): 6 Lying to Sitting/Side of Bed(Q: 6 Sit to Stand (QC): 6 Chair/Eqf-vk-Pmpzt Xfer(QC): 6 Toilet Transfer (QC): 5 Car Transfer (QC): 6 Does the Patient Walk: Yes Mode of Locomotion: Walk Anticipated Mode of Locomotion: Walk Walk 10 feet (QC): 6 Walk 50 ft with 2 Turns(QC): 6 Walk 150 ft (QC): 6 Walking 10ft on uneven surface: 6 Distance: 100', 50' Gait Assistive Device: FWW Does the Pt Use a Wheelchair: No Wheel 50 ft with 2 turns (QC): 3 Wheel 150 ft (QC): 88 Type of Wheelchair: Manual #of Steps: 6 1 Step (curb) (QC): 4 4 Steps (QC): 4 12 Steps (QC): 88 Walking Assistive Device: Walker Balance Sitting Static: Normal Balance Sitting Dynamic: Normal Balance-Standing Static: Fair Picking up an Object (QC): 6 (uses clip loading machine feeder ) Occupational Therapy Decreased Activ Tolerance, Decreased Safety Aware, Decreased UE Strength, Impaired Cognition, Impaired Coordination, Impaired Funct Balance, Impaired I ADL's, Impaired Self-Care Skills Eating (QC): 6 Oral Hygiene (QC): 6 Shower/Bathe Self (QC): 4 Upper Body Dressing (QC): 6 Lower Body Dressing (QC): 5 On/Off Footwear (QC): 6 Toileting Hygiene (QC): 6 Speech-Language Pathology The patient participated in speech pathology therapy to focus on word-finding difficulties. Due to limited participation, speech pathology goals were not met. PT Employment Evaluator/Case Manager Goals Skilled Nursing Goals PT Skilled Nursing Goals Time Frame: Sep 03, 2022 PT OT Pain Eval : Comment: pt. also c/o pain in mid and low back at 10/10 Scoring Section J - Health Conditions 1. Rarely or not at all 2. Occasionally 3. Frequently 4. Almost constantly 8. Unable to answer Roll Left to Right (QC): 6 Sit to Lying (QC): 6 Lying-Sitting on Side/Bed(QC): 6 Sit to Stand (QC): 6 Chair/Pkz-he-Yklzd Xfer(QC): 6 Toilet/Commode Transfer (QC): 6 Car Transfer (QC): 6 Does the Patient Walk: Yes Walk 10 feet (QC): 6 Walk 10ft-Uneven Surface(QC): 6 Walk 50ft with 2 Turns (QC): 6 Walk 150 ft (QC): 6 Wheel 50 feet with 2 turns (QC: 9 1 Step (curb) (QC): 4 4 Steps (QC): 4 12 Steps (QC): 88 Picking up an Object (QC): 4 (SBA) OT Employment Evaluator/Case Manager Goals Employment Evaluator/Case Manager Goals Time Frame: Sep 04, 2022 Acute change in mental status: 0 Inattention: 0 Disorganized thinkin Altered level of consciousness: 0 Eating (QC): 6 (met) Oral Hygiene (QC): 6 (met) Toileting Hygiene (QC): 5 (met) Shower/Bathe Self (QC): 5 (not met due to cues for safety) Upper Body Dressing (QC): 6 (met) Lower Body Dressing (QC): 5 (met) On/Off Footwear (QC): 5 (met) Additional Goals: 1-Demonstrate ADL Tasks, 2-Verbalize Understanding, 3- ImproveStrength/Rogers 1=Demonstrate adherence to instructed precautions during ADL tasks. 2=Patient will verbalize/demonstrate understanding of assistive devices/modifications for ADL. 3=Patient will improve strength/tolerance for activity to enable patient to perform ADL's. Speech Employment Evaluator/Case Manager Goals Employment Evaluator/Case Manager Goals 1. The patient will demonstrate an improvement with cognitive linguistic skills for safe discharge to the least restrictive environment. NOT MET: The patient participated in speech pathology therapy to focus on word-finding difficulties. Due to limited participation, speech pathology goals were not met. Time Frame: Ten Days. DEEPIKA POLK Aug 19, 2022 10:08
--- NOTE | 2022-08-19 10:13 | Therapy Team Discharge Summary ---
Therapy Discharge Summary Discharge Recommendations Date of Discharge Aug 17, 2022 at 17:10 Therapy D/C Recommendations: Bath Aide, Intermittent Supervision, Residential (TCU/NH) Physical Therapy Patient performs all bed mobility and trasnfers with full independence. During gait he demonstrates no LOB, slow, head down at times, mild to mod kyphosis. He ambulates 150 feet with FWW, with [place] and no verbal cues. Patient ascended/descended 6 steps with bilateral handrails and independence. After stairs, pt. c/o dizziness after up down 6 steps ad declined further step training/testing. Co Rx PT OT for safety and coordination of balance and assessing pts status . QCs completed, showering and dressing etc gait, stairs, TRFs etc see Rx documentation. after Rx pt. requested to lay down, R LE elevated on pillow, cold pack applied to knee near full circumference, pt. remarks on how comforting this is. Patient demonstrates Good Progress. pt. was noted to have diaphoresis during car TRF, BP 178/79 HR 78, O2 sats WNLs. c/o dizziness on stairs, BP 177/79, HR 76 Roll Left to Right (QC): 6 Sit to Lying (QC): 6 Lying to Sitting/Side of Bed(Q: 6 Sit to Stand (QC): 6 Chair/Vwf-um-Rvfjs Xfer(QC): 6 Toilet Transfer (QC): 5 Car Transfer (QC): 6 Does the Patient Walk: Yes Mode of Locomotion: Walk Anticipated Mode of Locomotion: Walk Walk 10 feet (QC): 6 Walk 50 ft with 2 Turns(QC): 6 Walk 150 ft (QC): 6 Walking 10ft on uneven surface: 6 Distance: 100', 50' Gait Assistive Device: FWW Does the Pt Use a Wheelchair: No Wheel 50 ft with 2 turns (QC): 3 Wheel 150 ft (QC): 88 Type of Wheelchair: Manual #of Steps: 6 1 Step (curb) (QC): 4 4 Steps (QC): 4 12 Steps (QC): 88 Walking Assistive Device: Walker Balance Sitting Static: Normal Balance Sitting Dynamic: Normal Balance-Standing Static: Fair Picking up an Object (QC): 6 (uses director of property management ) Occupational Therapy Decreased Activ Tolerance, Decreased Safety Aware, Decreased UE Strength, Impaired Cognition, Impaired Coordination, Impaired Funct Balance, Impaired I ADL's, Impaired Self-Care Skills Eating (QC): 6 Oral Hygiene (QC): 6 Shower/Bathe Self (QC): 4 Upper Body Dressing (QC): 6 Lower Body Dressing (QC): 5 On/Off Footwear (QC): 6 Toileting Hygiene (QC): 6 PT Chcf Goals Glass Production Machine Operator Goals PT Glass Production Machine Operator Goals Time Frame: Sep 03, 2022 PT OT Pain Eval : Comment: pt. also c/o pain in mid and low back at 10/10 Scoring Section J - Health Conditions 1. Rarely or not at all 2. Occasionally 3. Frequently 4. Almost constantly 8. Unable to answer Roll Left to Right (QC): 6 Sit to Lying (QC): 6 Lying-Sitting on Side/Bed(QC): 6 Sit to Stand (QC): 6 Chair/Aks-dx-Rcogg Xfer(QC): 6 Toilet/Commode Transfer (QC): 6 Car Transfer (QC): 6 Does the Patient Walk: Yes Walk 10 feet (QC): 6 Walk 10ft-Uneven Surface(QC): 6 Walk 50ft with 2 Turns (QC): 6 Walk 150 ft (QC): 6 Wheel 50 feet with 2 turns (QC: 9 1 Step (curb) (QC): 4 4 Steps (QC): 4 12 Steps (QC): 88 Picking up an Object (QC): 4 (SBA) OT Chcf Goals Glass Production Machine Operator Goals Time Frame: Sep 04, 2022 Acute change in mental status: 0 Inattention: 0 Disorganized thinkin Altered level of consciousness: 0 Eating (QC): 6 (met) Oral Hygiene (QC): 6 (met) Toileting Hygiene (QC): 5 (met) Shower/Bathe Self (QC): 5 (not met due to cues for safety) Upper Body Dressing (QC): 6 (met) Lower Body Dressing (QC): 5 (met) On/Off Footwear (QC): 5 (met) Additional Goals: 1-Demonstrate ADL Tasks, 2-Verbalize Understanding, 3-Improv eStrength/Rogers 1=Demonstrate adherence to instructed precautions during ADL tasks. 2=Patient will verbalize/demonstrate understanding of assistive devices/modifications for ADL. 3=Patient will improve strength/tolerance for activity to enable patient to p erform ADL's. Speech Glass Production Machine Operator Goals Glass Production Machine Operator Goals 1. The patient will demonstrate an improvement with cognitive linguistic skills for safe discharge to the least restrictive environment. NOT MET: The patient participated in speech pathology therapy to focus on word-finding difficulties. Due to limited participation, speech pathology goals were not met. Time Frame: Ten Days. JULIANNA MUHAMMAD PT Aug 19, 2022 10:13
== END 2022-08-17 17:10 | disposition home or self-care (01) | DRG 552 ==
PROVIDERS: ADMIT Internal Medicine; ATTEND Internal Medicine
DX: M48.02 Spinal stenosis, cervical region (principal); E87.1 Hypo-osmolality and hyponatremia; G62.9 Polyneuropathy, unspecified; R53.1 Weakness; G89.29 Other chronic pain; I10 Essential (primary) hypertension; R41.0 Disorientation, unspecified; E86.0 Dehydration; K59.00 Constipation, unspecified; E11.9 Type 2 diabetes mellitus without complications; R50.9 Fever, unspecified; Z79.84 Long term (current) use of oral hypoglycemic drugs; Z79.891 Long term (current) use of opiate analgesic; Z87.891 Personal history of nicotine dependence
CPT/HCPCS: 36415; 80053; 84145; 85025; 94760

== ENCOUNTER 2023-02-13 09:06 | Emergency (ER) | payer MEDICARE ==
[~2023-02-13 09:06] MED LIST changes: -BISACODYL 10 MG SUPP (DULCOLAX) PR PRN; -CALCIUM CARBONATE 500 MG (TUMS) TAB.CHEW PO PRN; -DOCUSATE SODIUM 100 MG (COLACE) CAP PO PRN; -FLEET ENEMA ADULT 1 EA BTL PR PRN; -LACTULOSE SYRUP 10GM/15ML (ENULOSE) 30ML UDC PO PRN; -LOPERAMIDE 2 MG (IMODIUM) TABLET PO PRN; -MELATONIN 3 MG TABLET PO PRN; -ONDANSETRON 4 MG (ZOFRAN) ORAL DISSOLVE TAB PO PRN; -diphenhydrAMINE 25 MG TAB (BENADRYL) PO PRN; -guaiFENesin/CODEINE (ROBITUSSIN AC) 10ML UDC PO PRN
[2023-02-13] MEDS ORDERED: morphine INJ 10 MG/ML 1ML (SYR OR VIAL) IVP STA (09:11)
--- NOTE | 2023-02-13 09:18 | ED Fall/Injury ---
General Chief Complaint: Trauma-Non Activation Stated Complaint: FALL; LEG PAIN Source: patient, EMS, old records Exam Limitations: no limitations History of Present Illness Date Seen by Provider: Feb 13, 2023 Time Seen by Provider: 09:07 Initial Comments 58-year-old male with past medical history of diabetes, hypertension, chronic pa in, and cervical spine stenosis with lower extremity weakness now s/p cervical spine surgery over a week ago coming in after he fell. He states he was getting up to go to the bathroom, knees buckled, fell, hit his knees, was down for about an hour and a half. Did not hit his head, remembers all events, does not take blood thinners. Unfortunately, he was not wearing his cervical collar at the time that he is supposed to be wearing. He is having some neck pain, but the majority of his pain is in his bilateral knees, right greater than left. EMS reports he was a little hypertensive, mildly hypoxic after they gave 100 mcg of fentanyl, and that he had good lower extremity strength and sensation. Otherwise he is denying any other acute complaints Allergies and Home Medications Allergies Coded Allergies: meperidine (Verified Allergy, Unknown, TACHYCARDIA, 06/08/22) Patient Home Medication List Home Medication List Reviewed: Yes Acetaminophen/Diphenhydramine (Tylenol Pm Ex-Strength Caplet) 500 Mg-25 Mg Tablet, 2 EACH PO HS PRN for SLEEP, (Reported) Entered as Reported by: SHADI HYDE on 08/12/22 1139 Amlodipine Besylate (Amlodipine Besylate) 5 Mg Tablet, 5 MG PO DAILY, (Reported) Entered as Reported by: Concha Gillespie on 06/08/222313 Atorvastatin Calcium (Atorvastatin Calcium) 20 Mg Tablet, 20 MG PO DAILY, (Reported) Entered as Reported by: SHADI HYDE on 08/12/22 113 Bupropion HCl (Bupropion Xl) 300 Mg Tab.er.24h, 300 MG PO DAILY, (Reported) Entered as Reported by: Concha Gillespie on 06/08/222313 Celecoxib (Celecoxib) 100 Mg Capsule, 100 MG PO DAILY, (Reported) Entered as Reported by: Concha Gillespie on 06/08/222313 Cholecalciferol (Vitamin D3) (Vitamin D3) 25 Mcg (1000 Unit) Tablet, 25 MCG PO DAILY, (Reported) Entered as Reported by: SHADI HYDE on 08/12/22 1141 Duloxetine HCl (Duloxetine HCl) 30 Mg Capsule.dr, 30 MG PO TID, (Reported) Entered as Reported by: SHADI HYDE on 08/12/22 1113 Gabapentin (Gabapentin) 400 Mg Capsule, 1,200 MG PO HS, (Reported) Entered as Reported by: SHADI HYDE on 08/12/22 1121 Gabapentin (Gabapentin) 600 Mg Tablet, 1,200 MG PO 0800,1200, (Reported) Entered as Reported by: SHADI HYDE on 08/12/22 1128 Hydroxyzine HCl (Hydroxyzine HCl) 50 Mg Tablet, 50 MG PO BID, (Reported) Entered as Reported by: SHADI HYDE on 08/12/22 112 Lisinopril (Lisinopril) 20 Mg Tablet, 20 MG PO DAILY, (Reported) Entered as Reported by: SHADI HYDE on 08/12/22 113 Metformin HCl (Metformin HCl) 500 Mg Tablet, 500 MG PO BID, (Reported) Entered as Reported by: Concha Gillespie on 06/08/222313 Multivitamin (Multi-Vitamin Daily) 1 Each Tablet, 1 EACH PO DAILY, (Reported) Entered as Reported by: SHADI HYDE on 08/12/22 113 Oxycodone HCl (Oxycodone HCl) 15 Mg Tablet, 15 MG PO QID PRN for PAIN-SEVERE (8- 10), (Reported) Entered as Reported by: Concha Gillespie on 06/08/222309 Pantoprazole Sodium (Pantoprazole Sodium) 40 Mg Tablet.dr, 40 MG PO DAILY, (Reported) Entered as Reported by: SHADI HYDE on 08/12/22 1131 Primidone (Mysoline) 50 Mg Tablet, 50 MG PO TID, (Reported) Entered as Reported by: SHADI HYDE on 08/12/22 112 Timolol Maleate (Timoptic) 0.5 % Drops, 1 DROP OU TID, (Reported) Entered as Reported by: Concha Gillespie on 06/08/222313 Trazodone HCl (Trazodone HCl) 100 Mg Tablet, 100 MG PO HS, (Reported) Entered as Reported by: SHADI HYDE on 08/12/22 1124 Vitamin B Complex (Vitamin B Complex) 1 Each Tablet, 1 EACH PO DAILY, (Reported) Entered as Reported by: SHADI HYDE on 08/12/22 1141 Review of Systems Review of Systems Constitutional: No fever Eyes: No Symptoms Reported Ears, Nose, Mouth, Throat: no symptoms reported Respiratory: no symptoms reported Cardiovascular: no symptoms reported Gastrointestinal: no symptoms reported Genitourinary: no symptoms reported Musculoskeletal: see HPI Skin: no symptoms reported Psychiatric/Neurological: No Symptoms Reported Past Qjrzbtx-Ycdqzf-Cuoasf Hx Patient Social History Substance use?: No Immunizations Up To Date First/Initial COVID19 Vaccinat: 2020 Second COVID19 Vaccination Leonardo: 2020 Third COVID19 Vaccination Date: 2020 Past Medical History Surgery/Hospitalization HX: Hypertension, Diabetes Mellitus, Neuropathy, DJD of spine SURGERY; 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 oz. kg; 34.16 BMI Method: General Appearance: WD/WN, mild distress HEENT: PERRL/EOMI, normal ENT inspection, pharynx normal Neck: non-tender, full range of motion, supple, normal inspection Cardiovascular: regular rate, rhythm, no edema, no murmur Respiratory: chest non-tender, lungs clear, normal breath sounds, no respiratory distress, no accessory muscle use Gastrointestinal: normal bowel sounds, non tender, soft; No distended, No guarding, No rebound Back: normal inspection, no CVA tenderness Extremities: no pedal edema, no calf tenderness, normal capillary refill, swelling (Swelling of the right knee with significant tenderness all around it, unable to straighten both knees due to pain, no hip pain, normal distal sensation and movement, normal distal pulses) 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, no motor/sensory deficits, alert, normal mood/affect, oriented x 3 Skin: normal color, warm/dry Tamie Coma Score Best Eye Response: (4) Open Spontaneously Best Verbal Response: (5) Oriented Best Motor Response: (6) Obeys Commands Progress/Results/Core Measures Results/Orders Lab Results Laboratory Tests Test 02/13/23 10:00 02/13/23 11:24 Range/Units White Blood Count 16.2 H 4.3-11.0 10^3/uL Red Blood Count 3.29 L 4.30-5.52 10^6/uL Hemoglobin 10.3 L 13.3-17.7 g/dL Hematocrit 32 L 40-54 % Mean Corpuscular Volume 97 80-99 fL Mean Corpuscular Hemoglobin 31 25-34 pg Mean Corpuscular Hemoglobin Concent 32 32-36 g/dL Red Cell Distribution Width 14.3 10.0-14.5 % Platelet Count 397 130-400 10^3/uL Mean Platelet Volume 9.3 9.0-12.2 fL Immature Granulocyte % (Auto) 1 % Neutrophils (%) (Auto) 90 H 42-75 % Lymphocytes (%) (Auto) 3 L 12-44 % Monocytes (%) (Auto) 6 0-12 % Eosinophils (%) (Auto) 1 0-10 % Basophils (%) (Auto) 0 0-10 % Neutrophils # (Auto) 14.5 H 1.8-7.8 10^3/uL Lymphocytes # (Auto) 0.5 L 1.0-4.0 10^3/uL Monocytes # (Auto) 1.0 0.0-1.0 10^3/uL Eosinophils # (Auto) 0.1 0.0-0.3 10^3/uL Basophils # (Auto) 0.1 0.0-0.1 10^3/uL Immature Granulocyte # (Auto) 0.1 0.0-0.1 10^3/uL Neutrophils % (Manual) 88 % Lymphocytes % (Manual) 2 % Monocytes % (Manual) 6 % Eosinophils % (Manual) 1 % Basophils % (Manual) 1 % Band Neutrophils 2 % Hypochromasia SLIGHT Anisocytosis SLIGHT Erythrocyte Sedimentation Rate 79 H 0-30 MM/HR Prothrombin Time 12.5 12.2-14.7 SEC INR Comment 0.9 0.8-1.4 Activated Partial Thromboplast Time 28 24-35 SEC Sodium Level 130 L 135-145 MMOL/L Potassium Level 6.4 H 3.6-5.0 MMOL/L Chloride Level 95 L 98-107 MMOL/L Carbon Dioxide Level 26 21-32 MMOL/L Anion Gap 9 5-14 MMOL/L Blood Urea Nitrogen 25 H 7-18 MG/DL Creatinine 1.24 0.60-1.30 MG/DL Estimat Glomerular Filtration Rate 68 BUN/Creatinine Ratio 20 Glucose Level 277 H 70-105 MG/DL Lactic Acid Level 1.09 0.50-2.00 MMOL/L Calcium Level 8.8 8.5-10.1 MG/DL Corrected Calcium 9.0 8.5-10.1 MG/DL Total Bilirubin 0.3 0.1-1.0 MG/DL Aspartate Amino Transf (AST/SGOT) 15 5-34 U/L Alanine Aminotransferase (ALT/SGPT) 14 0-55 U/L Alkaline Phosphatase 88 40-136 U/L C-Reactive Protein 5.25 H <0.50 MG/DL Total Protein 7.1 6.4-8.2 GM/DL Albumin 3.7 3.2-4.5 GM/DL Urine Color YELLOW Urine Clarity CLEAR Urine pH 5.5 5-9 Urine Specific Ewing 1.020 1.016-1.022 Urine Protein NEGATIVE NEGATIVE Urine Glucose (UA) 3+ H NEGATIVE Urine Ketones TRACE H NEGATIVE Urine Nitrite NEGATIVE NEGATIVE Urine Bilirubin NEGATIVE NEGATIVE Urine Urobilinogen 0.2 < = 1.0 MG/DL Urine Leukocyte Esterase NEGATIVE NEGATIVE Urine RBC (Auto) NEGATIVE NEGATIVE Urine RBC NONE /HPF Urine WBC NONE /HPF Urine Squamous Epithelial Cells RARE /HPF Urine Crystals NONE /LPF Urine Bacteria NEGATIVE /HPF Urine Casts NONE /LPF Urine Mucus NEGATIVE /LPF Urine Culture Indicated NO My Orders Orders - ALVARO ESTRADA MD Ct Head/Cervical Spine Wo (02/13/23 09:11) Chest 1 View Ap/Pa Only (02/13/23 09:11) Morphine Injection (Morphine Injection (02/13/23 09:11) Ct Pelvis Wo (02/13/23 ) Femur 2 View Right (02/13/23 ) Knee 2 View Bilateral (02/13/23 09:11) Hydromorphone Injection (Dilaudid Inject (02/13/23 10:15) Cbc With Automated Diff (02/13/23 10:08) Comprehensive Metabolic Panel (02/13/23 10:08) Blood Culture (02/13/23 10:08) Protime With Inr (02/13/23 10:08) Partial Thromboplastin Time (02/13/23 10:08) Ed Iv/Invasive Line Start (02/13/23 10:08) Lactic Acid Analyzer (02/13/23 10:08) Ns Iv 1000 Ml (Sodium Chloride 0.9%) (02/13/23 10:15) Crp Fs (02/13/23 10:08) Erythrocyte Sedimentation Rate (02/13/23 10:08) Vancomycin Injection (Vancomycin Injecti (02/13/23 10:15) Ampicillin/Sulbactam Injection (Unasyn 3 (02/13/23 10:15) Vancomycin Injection (Vancomycin Injecti (02/13/23 10:15) Vancomycin Injection (Vancomycin Injecti (02/13/23 10:12) Ns (Ivpb) (Sodium Chloride 0.9%) (02/13/23 10:12) Manual Differential (02/13/23 10:00) Ct Neck (Soft Tissue) W (02/13/23 10:42) Iohexol Injection (Omnipaque 350 Mg/Ml 1 (02/13/23 11:00) Received Contrast (Hold Metformin- Contr (02/13/23 11:00) Ns (Ivpb) (Sodium Chloride 0.9% Ivpb Bag (02/13/23 11:00) Insulin (Regular) Human (Novolin R (Per (02/13/23 11:03) Ekg Tracing (02/13/23 11:03) Ua Culture If Indicated (02/13/23 11:30) Catheter(Urinary) Insert & Ass 03,15 (02/13/23 11:30) Medications Given in ED Current Medications Medications Dose Ordered Sig/Jaiden Route Start Time Stop Time Status Last Admin Dose Admin Ampicillin Sodium/ Sulbactam Sodium 3 gm/Sodium Chloride 100 ml @ 200 mls/hr ONCE ONCE IV 02/13/23 10:15 02/13/23 10:44 DC 02/13/23 10:22 200 MLS/HR Hydromorphone HCl 1 mg ONCE ONCE IV 02/13/23 10:15 02/13/23 10:16 DC 02/13/23 10:19 1 MG Iohexol 100 ml ONCE ONCE IV 02/13/23 11:00 02/13/23 11:01 DC 02/13/23 11:01 75 ML Sodium Chloride 100 ml ONCE ONCE IV 02/13/23 11:00 02/13/23 11:01 DC 02/13/23 11:00 100 ML Vancomycin HCl 1000 mg/Sodium Chloride 250 ml @ 250 mls/hr ONCE ONCE IV 02/13/23 10:15 02/13/23 11:14 DC 02/13/23 11:20 250 MLS/HR Vancomycin HCl 1000 mg/Sodium Chloride 250 ml @ 250 mls/hr ONCE ONCE IV 02/13/23 10:15 02/13/23 11:14 DC 02/13/23 11:21 250 MLS/HR Vital Signs/I&O 02/13/23 09:06 Temp 36.9 Pulse 107 Resp 18 B/P (MAP) 138/86 (103) Pulse Ox 95 O2 Delivery Room Air Progress Progress Note : Progress Note 58-year-old male with above history coming in after a fall. ABCs were intact and vitals were stable on presentation although he was mildly hypoxic after getting the fentanyl. His oxygen came back up to around 91% on room air shortly after. Physical exam with right knee swelling and distal femur tenderness. He is neurovascularly intact otherwise. His c-collar was in place on arrival and we left that in place. CT head, cervical spine, and later pelvis ordered due to pain. I discussed the case with the radiologist on the phone, he is concern for retropharyngeal fluid collection with air that could be an abscess. I discussed with him that the surgery was about a week ago, he states that that is still his concern. The patient does not have any fever, difficulty opening his mouth, voice changes. He states since the surgery, however he has had difficulty swallowing which is a new issue and actually has been getting slightly worse. He is tolerating his secretions at this time. It is difficult to fully assess for trismus since he has the c-collar on tightly, but he is able to get at least 2 fingers into his mouth. At this point, an IV was placed and basic labs were obtained including inflammatory markers, lactic acid, blood cultures. He was given vancomycin for skin marcio as well as Unasyn. He was also given a bolus of IV fluids. X-ray of the bilateral knees and right femur concerning for distal femur fracture that is periprosthetic. He was given initially morphine here, had continued pain, so was given Dilaudid. He is on oxycodone 10 mg every 4 hours as needed at home, and is not opioid simona. Labs were significant for an elevated white blood cell count, elevated ESR, elevated CRP, normal creatinine, but elevated potassium and the specimen was not hemolyzed. Potassium was 6.4. EKG was ordered to assess for signs of hyperkalemia, and on my interpretation he is not showing any signs of hyperkalemia. Specifically, it appears almost identical to his prior EKG from 2021. His glucose was around 280, so he was just given 5 units of IV insulin since his potassium is not incredibly high. Radiology recommended a CT soft tissue neck with contrast. This was obtained and also concerning for retropharyngeal abscess. At this point I contacted [facility] to discuss transfer for higher level of care and continuity of care at 11:49. They called back at 12:[address] Peres, trauma surgeon, has refused transfer due to needing a trauma facility that is closer. At this time I discussed that the patient's issues are multifaceted, and he is mostly being asked to be transferred to [facility] because of the possible retropharyngeal abscess complicated by his surgery that he just had at their facility. They then paged the neurosurgeon, Dr. Velez, and he called back to discuss the case with me at 12:25. At that point, he would like the patient admitted to the hospitalist service at their facility. They called back at 12:46, and they have no beds, they are unable to accept transfer. I then contacted [facility] at 12:48. Dr. Reyes, the emergency department physician, accepted the patient to be transferred to their facility. Prior to transfer, he did receive another dose of Dilaudid for pain. Initial ECG Impression Date: Feb 13, 2023 Initial ECG Impression Time: 11:18 Initial ECG Rate: 106 Initial ECG Rhythm: S.Tach Comment Wide QRS with a right bundle branch block, left anterior fascicular block, no significant ST changes, no concerning T wave abnormalities, particularly no peaked T waves. In comparison to his EKG that was obtained in 2021, this appears almost identical Diagnostic Imaging Diagonstic Imaging: Xray (bilateral knees, right femur, chest), CT (head, c spine, pelvis) Comments [facility] [place], [place] NAME: KAROLINA ADORNO [facility] REC#: [id number] PT STATUS: REG ER : 1965 PHYSICIAN: ALVARO ESTRADA MD ADMIT DATE: 02/13/23/ER FS Draft Date of Exam:02/13/23 CT HEAD/CERVICAL SPINE WO Clinical indications: Patient is status post fall. Patient had recent C-spine surgery a week ago. Exam: Head CT without IV contrast with sagittal and coronal reformations. Axial CT scan of the cervical spine with sagittal and coronal reformations. Auto Exposure Controls were utilized during the CT exam to meet ALARA standards for radiation dose reduction. Comparison: Head CT without contrast dated 08/11/2022. Findings: Head CT: There is no evidence of acute cerebral infarct, intracranial hemorrhage, or gross mass effect. The brain parenchymal volume appears appropriate for patient's age. There is normal mahmood-white matter distinction. There is no significant midline shift or herniation. There is no evidence of hydrocephalus. The basal cisterns are unremarkable. The skull, extracranial soft tissue, and orbits are unremarkable. There is mild mucosal thickening involving ethmoid sinus. Temporal bones show no significant abnormality. Cervical spine: There is no acute cervical spine fracture or dislocation. The C4-C7 anterior cervical discectomy fusion. There appears to be some intervertebral bony bridging/fusion at the C5-C6 and C6-C7 levels. There is no definitive intervertebral bony bridging/fusion at the C4-C5 level. There is endplate irregularity involving the left side of the C6-C7 endplates with sclerosis. There is retropharyngeal soft tissue swelling seen from the C2 vertebral body level to the lower C7 vertebral body level. This fluid at the level of the hardware and is not seen extending into the upper mediastinal region. There is air and fluid within this fluid collection which is difficult to accurately measure on this exam. This fluid collection measures at least 1.7 cm x 3.8 cm in AP by transverse dimensions. This fluid collection is incompletely imaged and the airway is incompletely imaged. There are cervical spine vertebral body spurs seen. IMPRESSION: 1: There is no evidence of acute intracranial process. There is no skull fracture. 2: There is a moderate to large sized retropharyngeal fluid collection extending from the C1 vertebral body level to the lower C7 vertebral body level with air in it. Given the patient had recent surgery, this may represent a pseudomeningocele with postoperative air within it. An abscess should be excluded. CT scan of the neck soft tissue with contrast is suggested for further evaluation. 3: There is C4-C7 anterior cervical discectomy fusion. There is endplate irregularity and sclerosis involving the left side of the C6-C7 endplate region. This may just be related to degenerative or postoperative changes. Given the retropharyngeal fluid collection, and infectious process should also be excluded. 4: There is no acute cervical spine fracture. Results of this report discussed with Dr. Alvaro Estrada via the telephone on 02/13/2023 at 1003 hours. Dictated on workstation # [id number] Dict: 02/13/23 0953 Trans: 02/13/23 1019 [facility] [id number] Interpreted by: CHRISTI DOMINGUEZ MD Electronically signed by: [facility] [place] [place] NAME: KAROLINA ADORNO [facility] REC#: [id number] PT STATUS: REG ER : 1965 PHYSICIAN: ALVARO ESTRADA MD ADMIT DATE: 02/13/23/ER FS Draft Date of Exam:02/13/23 KNEE 2 VIEW BILATERAL EXAMINATION: Bilateral knee radiograph EXAM DATE: 02/13/2023 10:08 AM COMPARISON: None available. HISTORY: fall, bilateral knee pain TECHNIQUE: 3 views FINDINGS: There is an acute complex fracture of the distal right femur. Fractures extend longitudinally and obliquely to the hardware. There is mild displacement anteriorly. Hardware remains in good positioning. There is a small joint effusion. There is mild soft tissue swelling within the right knee. Within the left knee, there is no acute fracture, dislocation, or destructive osseous process. Joint spaces are normal. The soft tissues are normal. Surgical changes from total left knee arthroplasty. IMPRESSION: 1. Complex acute displaced fractures of the distal right femur extending to the femoral hardware. Hardware remains intact. 2. No acute osseous abnormality of the left knee. Dictated on workstation # [id number] Dict: 02/13/23 1016 Trans: 02/13/23 1029 [id number] Interpreted by: RADHA ARMENDARIZ DO Electronically signed by: [facility] [place] [place] NAME: KAROLINA ADORNO [facility] REC#: [id number] PT STATUS: REG ER : 1965 PHYSICIAN: ALVARO ESTRADA MD ADMIT DATE: 02/13/23/ER FS Draft Date of Exam:02/13/23 CHEST 1 VIEW AP/PA ONLY EXAMINATION: Chest 1 view HISTORY: fall, hypoxia COMPARISON: None available. FINDINGS: Heart size and pulmonary vasculature are normal. There are mild interstitial opacities within the left lung base. No pleural effusion or pneumothorax. The osseous structures are intact. IMPRESSION: 1. Mild interstitial opacities within the left lung base which can be seen with atelectasis, edema, or pneumonia. Dictated on workstation # [id number] Dict: 02/13/23 1012 Trans: 02/13/23 1018 [id number] Interpreted by: RADHA ARMENDARIZ DO Electronically signed by: [facility] [place] [place] NAME: KAROLINA ADORNO [facility] REC#: [id number] PT STATUS: REG ER : 1965 PHYSICIAN: ALVARO ESTRADA MD ADMIT DATE: 02/13/23/ER FS Draft Date of Exam:02/13/23 CT PELVIS WO PROCEDURE: CT pelvis without contrast. TECHNIQUE: Multiple contiguous axial images were obtained through the pelvis without the use of intravenous contrast. Sagittal and coronal reformations were performed. Auto Exposure Controls were utilized during the CT exam to meet ALARA standards for radiation dose reduction. INDICATION: Fall. There is normal femoral acetabular alignment bilaterally. Both femoral heads and necks are intact. The superior and inferior pubic rami are intact. Acetabula are unremarkable bilaterally. SI joints and symphysis are non-widened. Sacral ala unremarkable. No fractures are seen. No free fluid in the pelvis is identified. IMPRESSION: No acute bony abnormality is detected. Dictated on workstation # [id number] Dict: 02/13/23 0959 Trans: 02/13/[address] [place] [address] [id number] Interpreted by: MAXIMINO LOPEZ MD Electronically signed by: [facility]. [place] NAME: KAROLINA ADORNO [facility] REC#: [id number] PT STATUS: REG ER : 1965 PHYSICIAN: ALVARO ESTRADA MD ADMIT DATE: 02/13/23/ER FS Signed Date of Exam:02/13/23 CT NECK (SOFT TISSUE) W EXAMINATION: CT neck with intravenous contrast. TECHNIQUE: Multiple contiguous axial images were obtained through the neck after the uneventful administration of intravenous contrast. All CT scans use one or more of the following dose optimizing techniques: automated exposure control, MA and/or KvP adjustment based on patient size and exam type or iterative reconstruction. HISTORY: Retropharyngeal abscess, recent cervical surgery COMPARISON: None available. FINDINGS: The visualized portions of the skull base are normal. There is mild deviation of the cervical area which remains patent. Within the right retropharyngeal soft tissues, there is a 3.9 x 1.6 x 6.0 cm air and fluid collection. This extends from the level of the thyroid gland inferiorly to the level of the thyroid. The parotid and submandibular glands are normal. Inherent muscles of the tongue and lingual tonsils are normal. No pathologically enlarged lymph nodes are present. Visualized vascular structures are normal. The thyroid gland appears normal. The visualized portions of the lung apices and upper mediastinum are normal. Surgical changes from C4 through C7 spinal fusion. IMPRESSION: 1. A 3.9 x 1.6 x 6.0 cm air and fluid collection within the retropharyngeal soft tissues along the anterior cervical spine concerning for postoperative phlegmon or abscess. Sterility cannot be determined by imaging although there is air and fluid which raises concern for an infectious process. 2. Mild mass effect on the cervical airway without significant narrowing. Dictated by: Dictated on workstation # [id number] Dict: 02/13/23 1124 Trans: 02/13/23 1150 [facility] [id number] Interpreted by: RADHA ARMENDARIZ DO Electronically signed by: RADHA ARMENDARIZ DO 02/13/23 1150 Focused Exam Lactate Level 02/13/23 10:00: Lactic Acid Level 1.09 Lactic Acid Level Laboratory Tests Test 02/13/23 10:00 Lactic Acid Level 1.09 MMOL/L (0.50-2.00) Departure Impression Primary Impression: Femur fracture, right Qualified Codes: S72.351A - Displaced comminuted fracture of shaft of right femur, initial encounter for closed fracture Additional Impressions: H/O cervical spine surgery Hyperkalemia Retropharyngeal abscess Disposition: XFER SHT-TRM HOSP Condition: Stable Admissions Decision to Admit/Date: Feb 13, 2023 Time/Decision to Admit Time: 11:45 Transfer Transfer Reason: Exceeds level of care (needs spine surgeon evaluation and potentially nephrology for hyperkalemia) Time Spoke to Accepting Phy: 12:48 Transfer Facility: [facility] Method of Transfer: EMS Departure-Patient Inst. Referrals: JU KRAMER APRN (PCP) Primary Care Physician [facility] (Family) Primary Care Physician ALVARO ETSRADA MD Feb 13, 2023 09:18
--- NOTE | 2023-02-13 10:07 | Diagnostic Imaging Report ---
PROCEDURE: CT pelvis without contrast. TECHNIQUE: Multiple contiguous axial images were obtained through the pelvis without the use of intravenous contrast. Sagittal and coronal reformations were performed. Auto Exposure Controls were utilized during the CT exam to meet ALARA standards for radiation dose reduction. INDICATION: Fall. There is normal femoral acetabular alignment bilaterally. Both femoral heads and necks are intact. The superior and inferior pubic rami are intact. Acetabula are unremarkable bilaterally. SI joints and symphysis are non-widened. Sacral ala unremarkable. No fractures are seen. No free fluid in the pelvis is identified. IMPRESSION: No acute bony abnormality is detected. Dictated by: Dictated on workstation # [id number]
[2023-02-13] MEDS ORDERED: NS (IVPB) 250 ML ONE (10:12)
[2023-02-13] MEDS ORDERED: VANCOMYCIN 1000 MG/VIAL ONE (10:12)
[2023-02-13] MEDS ORDERED: VANCOMYCIN INJECTION 1,000 MG in NS (IVPB) 250 ML IV ONE ×4 (10:15)
[2023-02-13] MEDS ORDERED: HYDROmorphone 2 MG/ML VIAL (DILAUDID) IV ONE ×2 (10:15→13:15)
[2023-02-13] MEDS ORDERED: NS IV 1000 ML 1,000 ML IV SCH (10:15)
[2023-02-13] MEDS ORDERED: AMPICILLIN/SULBACTAM INJECTION 3 GM in NS (IVPB) 100 ML IV ONE (10:15)
--- NOTE | 2023-02-13 10:18 | Diagnostic Imaging Report ---
EXAMINATION: Chest 1 view HISTORY: fall, hypoxia COMPARISON: None available. FINDINGS: Heart size and pulmonary vasculature are normal. There are mild interstitial opacities within the left lung base. No pleural effusion or pneumothorax. The osseous structures are intact. IMPRESSION: 1. Mild interstitial opacities within the left lung base which can be seen with atelectasis, edema, or pneumonia. Dictated by: Dictated on workstation # [id number]
--- NOTE | 2023-02-13 10:19 | Diagnostic Imaging Report ---
Clinical indications: Patient is status post fall. Patient had recent C-spine surgery a week ago. Exam: Head CT without IV contrast with sagittal and coronal reformations. Axial CT scan of the cervical spine with sagittal and coronal reformations. Auto Exposure Controls were utilized during the CT exam to meet ALARA standards for radiation dose reduction. Comparison: Head CT without contrast dated 08/11/2022. Findings: Head CT: There is no evidence of acute cerebral infarct, intracranial hemorrhage, or gross mass effect. The brain parenchymal volume appears appropriate for patient's age. There is normal mahmood-white matter distinction. There is no significant midline shift or herniation. There is no evidence of hydrocephalus. The basal cisterns are unremarkable. The skull, extracranial soft tissue, and orbits are unremarkable. There is mild mucosal thickening involving ethmoid sinus. Temporal bones show no significant abnormality. Cervical spine: There is no acute cervical spine fracture or dislocation. The C4-C7 anterior cervical discectomy fusion. There appears to be some intervertebral bony bridging/fusion at the C5-C6 and C6-C7 levels. There is no definitive intervertebral bony bridging/fusion at the C4-C5 level. There is endplate irregularity involving the left side of the C6-C7 endplates with sclerosis. There is retropharyngeal soft tissue swelling seen from the C2 vertebral body level to the lower C7 vertebral body level. This fluid at the level of the hardware and is not seen extending into the upper mediastinal region. There is air and fluid within this fluid collection which is difficult to accurately measure on this exam. This fluid collection measures at least 1.7 cm x 3.8 cm in AP by transverse dimensions. This fluid collection is incompletely imaged and the airway is incompletely imaged. There are cervical spine vertebral body spurs seen. IMPRESSION: 1: There is no evidence of acute intracranial process. There is no skull fracture. 2: There is a moderate to large sized retropharyngeal fluid collection extending from the C1 vertebral body level to the lower C7 vertebral body level with air in it. Given the patient had recent surgery, this may represent a pseudomeningocele with postoperative air within it. An abscess should be excluded. CT scan of the neck soft tissue with contrast is suggested for further evaluation. 3: There is C4-C7 anterior cervical discectomy fusion. There is endplate irregularity and sclerosis involving the left side of the C6-C7 endplate region. This may just be related to degenerative or postoperative changes. Given the retropharyngeal fluid collection, and infectious process should also be excluded. 4: There is no acute cervical spine fracture. Results of this report discussed with Dr. Mark Pitts via the telephone on 02/13/2023 at 1003 hours. Dictated by: Dictated on workstation # [id number]
[2023-02-13 10:24] LABS: BASOPHILS # (AUTO) 0.1 10^3/uL (0.0-0.1); BASOPHILS % (AUTO) 0 % (0-10); EOSINOPHILS # (AUTO) 0.1 10^3/uL (0.0-0.3); EOSINOPHILS % (AUTO) 1 % (0-10); HEMATOCRIT 32 % (40-54); HEMOGLOBIN 10.3 g/dL (13.3-17.7); LYMPHOCYTES # (AUTO) 0.5 10^3/uL (1.0-4.0); LYMPHOCYTES % (AUTO) 3 % (12-44); MEAN CORPUSCULAR HEMOGLOBIN 31 pg (25-34); MEAN CORPUSCULAR HGB CONC 32 g/dL (32-36); MEAN CORPUSCULAR VOLUME 97 fL (80-99); MEAN PLATELET VOLUME 9.3 fL (9.0-12.2); MONOCYTES % (AUTO) 6 % (0-12); NEUTROPHILS # (AUTO) 14.5 10^3/uL (1.8-7.8); NEUTROPHILS % (AUTO) 90 % (42-75); PLATELET COUNT 397 10^3/uL (130-400); WHITE BLOOD COUNT 16.2 10^3/uL (4.3-11.0)
--- NOTE | 2023-02-13 10:29 | Diagnostic Imaging Report ---
EXAMINATION: Bilateral knee radiograph EXAM DATE: 02/13/2023 10:08 AM COMPARISON: None available. HISTORY: fall, bilateral knee pain TECHNIQUE: 3 views FINDINGS: There is an acute complex fracture of the distal right femur. Fractures extend longitudinally and obliquely to the hardware. There is mild displacement anteriorly. Hardware remains in good positioning. There is a small joint effusion. There is mild soft tissue swelling within the right knee. Within the left knee, there is no acute fracture, dislocation, or destructive osseous process. Joint spaces are normal. The soft tissues are normal. Surgical changes from total left knee arthroplasty. IMPRESSION: 1. Complex acute displaced fractures of the distal right femur extending to the femoral hardware. Hardware remains intact. 2. No acute osseous abnormality of the left knee. Dictated by: Dictated on workstation # [id number]
--- NOTE | 2023-02-13 10:33 | Diagnostic Imaging Report ---
EXAMINATION: Right femur radiograph EXAM DATE: 02/13/2023 10:08 AM COMPARISON: None available. HISTORY: Right knee pain after fall TECHNIQUE: 3 views FINDINGS: There are multifocal complex fractures of the distal right femur which demonstrate mild displacement of numerous fragments. Fractures extend longitudinally and obliquely to the level of the hardware. The hardware does remain in good positioning and intact. There is a small joint effusion. There is diffuse soft tissue swelling. IMPRESSION: 1. Acute displaced fractures of the distal right femur. Hardware remains intact and in good alignment. Dictated by: Dictated on workstation # [id number]
[2023-02-13 10:41] LABS: INR 0.9 (0.8-1.4); PROTHROMBIN TIME PATIENT 12.5 SEC (12.2-14.7)
[2023-02-13 10:47] LABS: CREATININE SERUM 1.24 MG/DL (0.60-1.30); POTASSIUM 6.4 MMOL/L (3.6-5.0)
[2023-02-13 10:48] LABS: ALBUMIN 3.7 GM/DL (3.2-4.5); BILIRUBIN,TOTAL 0.3 MG/DL (0.1-1.0); CALCIUM 8.8 MG/DL (8.5-10.1); TOTAL PROTEIN 7.1 GM/DL (6.4-8.2)
[2023-02-13 10:57] LABS: ANISOCYTOSIS SLIGHT; BAND NEUTROPHILS 2 %; BASOPHILS % (MANUAL) 1 %; EOSINOPHILS % (MANUAL) 1 %; HYPOCHROMASIA SLIGHT; LYMPHOCYTES % (MANUAL) 2 %; MONOCYTES % (MANUAL) 6 %; NEUTROPHILS % (MANUAL) 88 %
[2023-02-13] MEDS ORDERED: NS 100 ML (IVPB) BAG IV ONE (11:00)
[2023-02-13] MEDS ORDERED: IOHEXOL 350 MG/ML 100 ML (OMNIPAQUE 350) VIAL IV ONE (11:00)
[2023-02-13] MEDS ORDERED: HOLD METFORMIN - RECEIVED CONTRAST 20 ML VIAL IV SCH (11:00)
[2023-02-13] MEDS ORDERED: inSUlin (REGULAR) HUMAN 1 UNIT/0.01 ML (CHARGE PER UNIT) IV STA (11:03)
[2023-02-13 11:35] LABS: BILIRUBIN,URINE NEGATIVE (NEGATIVE); CLARITY,URINE CLEAR; COLOR,URINE YELLOW; GLUCOSE, URINE (UA) 3+ (NEGATIVE); KETONES,URINE TRACE (NEGATIVE); LEUKOCYTE ESTERASE ,URINE NEGATIVE (NEGATIVE); NITRITE,URINE NEGATIVE (NEGATIVE); PH,URINE 5.5 (5-9); PROTEIN,URINE NEGATIVE (NEGATIVE)
--- NOTE | 2023-02-13 11:38 | Diagnostic Imaging Report ---
EXAMINATION: CT neck with intravenous contrast. TECHNIQUE: Multiple contiguous axial images were obtained through the neck after the uneventful administration of intravenous contrast. All CT scans use one or more of the following dose optimizing techniques: automated exposure control, MA and/or KvP adjustment based on patient size and exam type or iterative reconstruction. HISTORY: Retropharyngeal abscess, recent cervical surgery COMPARISON: None available. FINDINGS: The visualized portions of the skull base are normal. There is mild deviation of the cervical area which remains patent. Within the right retropharyngeal soft tissues, there is a 3.9 x 1.6 x 6.0 cm air and fluid collection. This extends from the level of the thyroid gland inferiorly to the level of the thyroid. The parotid and submandibular glands are normal. Inherent muscles of the tongue and lingual tonsils are normal. No pathologically enlarged lymph nodes are present. Visualized vascular structures are normal. The thyroid gland appears normal. The visualized portions of the lung apices and upper mediastinum are normal. Surgical changes from C4 through C7 spinal fusion. IMPRESSION: 1. A 3.9 x 1.6 x 6.0 cm air and fluid collection within the retropharyngeal soft tissues along the anterior cervical spine concerning for postoperative phlegmon or abscess. Sterility cannot be determined by imaging although there is air and fluid which raises concern for an infectious process. 2. Mild mass effect on the cervical airway without significant narrowing. Dictated by: Dictated on workstation # [id number]
[2023-02-13 11:41] LABS: BACTERIA,URINE NEGATIVE /HPF; SQUAMOUS EPITHELIAL CELL,UR RARE /HPF
[2023-02-13 13:30] VITALS: BP 161/96
== END 2023-02-13 13:30 | disposition short-term general hospital (02) ==
LOC: EDUNIT# 09:06 → ER FS 09:07
DX: S72.351A Displaced comminuted fracture of shaft of right femur, initial encounter for closed fracture (principal); E87.5 Hyperkalemia; J39.0 Retropharyngeal and parapharyngeal abscess; I10 Essential (primary) hypertension; E11.40 Type 2 diabetes mellitus with diabetic neuropathy, unspecified; D72.829 Elevated white blood cell count, unspecified; R70.0 Elevated erythrocyte sedimentation rate; R79.82 Elevated C-reactive protein (CRP); Z98.890 Other specified postprocedural states; W18.30XA Fall on same level, unspecified, initial encounter
CPT/HCPCS: 36415; 70450; 70491; 71045; 72125; 72192; 73552; 80053; 81000; 83605; 85007; 85027; 85610; 85652; 85730; 86141; 87040; 93005; Q9967

== ENCOUNTER 2023-02-21 09:39 | Emergency (ER) | payer MEDICARE ==
[2023-02-21] MEDS ORDERED: morphine INJ 10 MG/ML 1ML (SYR OR VIAL) IM STA (10:07)
--- NOTE | 2023-02-21 10:08 | ED General ---
General Chief Complaint: General Problems/Pain Stated Complaint: LEG PAIN Nursing Triage Note: PT TO [facility] BY EMS WITH C/O BILAT LEG PAIN, WORSE IN THE R. PT ADMITTED TO [facility] YESTERDAY AND HAS NOT BEEN GIVEN HIS PAIN MEDICINE THAT HE NEEDED POST SURGERY. PT STATES HE NEEDS HELP GETTING THE PAIN UNDER CONTROL Source of Information: Patient Exam Limitations: No Limitations History of Present Illness Date Seen by Provider: Feb 21, 2023 Time Seen by Provider: 09:58 Initial Comments Patient is a 58-year-old male who presents to the emergency room today with a chief complaint of increasing pain. He was recently inpatient at [facility] in [facility] with a supracondylar femur fracture. He also had a left tib-fib fracture. These were seen and taken care of by Dr. Fox (ortho). He was discharged yesterday to [facility] and rehab. He has been getting only 5 mg oxycodone with acetaminophen every 6 hours. In the hospital he was getting 10 mg pills every 4. He does have a history of chronic narcotic dependence due to chronic pain. He states his pain is "out of control". He feels short of breath due to the pain. No abdominal pain, nausea or vomiting. No problems with bowel or bladder. He has not had fever that he is aware of. He states "my whole body hurts". I had the discharge summary faxed from [facility], the patient indeed was prescribed only 12 tablets of oxycodone 5 mg. No other pain management other than Celebrex and methocarbamol for muscle spasms. He is also on Cymbalta nightly. Gabapentin 1200 mg 3 times daily. Timing/Duration: 12-24 Hours Severity: Severe Modifying Factors: improves with Immobilization; worse with Movement Associated Systoms: Denies Symptoms Allergies and Home Medications Allergies Coded Allergies: meperidine (Verified Allergy, Unknown, TACHYCARDIA, 06/08/22) Patient Home Medication List Home Medication List Reviewed: Yes Acetaminophen/Diphenhydramine (Tylenol Pm Ex-Strength Caplet) 500 Mg-25 Mg Tablet, 2 EACH PO HS PRN for SLEEP, (Reported) Entered as Reported by: SHADI HYDE on 08/12/22 1139 Amlodipine Besylate (Amlodipine Besylate) 5 Mg Tablet, 5 MG PO DAILY, (Reported) Entered as Reported by: Concha Gillespie on 06/08/222313 Atorvastatin Calcium (Atorvastatin Calcium) 20 Mg Tablet, 20 MG PO DAILY, (Reported) Entered as Reported by: SHADI HYDE on 08/12/22 113 Bupropion HCl (Bupropion Xl) 300 Mg Tab.er.24h, 300 MG PO DAILY, (Reported) Entered as Reported by: Concha Gillespie on 06/08/222313 Celecoxib (Celecoxib) 100 Mg Capsule, 100 MG PO DAILY, (Reported) Entered as Reported by: Concha Gillespie on 06/08/222313 Cholecalciferol (Vitamin D3) (Vitamin D3) 25 Mcg (1000 Unit) Tablet, 25 MCG PO DAILY, (Reported) Entered as Reported by: SHADI HYDE on 08/12/22 114 Duloxetine HCl (Duloxetine HCl) 30 Mg Capsule.dr, 30 MG PO TID, (Reported) Entered as Reported by: SHADI HYDE on 08/12/22 1113 Gabapentin (Gabapentin) 400 Mg Capsule, 1,200 MG PO HS, (Reported) Entered as Reported by: SHADI HYDE on 08/12/22 112 Gabapentin (Gabapentin) 600 Mg Tablet, 1,200 MG PO 0800,1200, (Reported) Entered as Reported by: SHADI HYDE on 08/12/22 1128 Hydroxyzine HCl (Hydroxyzine HCl) 50 Mg Tablet, 50 MG PO BID, (Reported) Entered as Reported by: SHADI HYDE on 08/12/22 1123 Lisinopril (Lisinopril) 20 Mg Tablet, 20 MG PO DAILY, (Reported) Entered as Reported by: SHADI HYDE on 08/12/22 1130 Metformin HCl (Metformin HCl) 500 Mg Tablet, 500 MG PO BID, (Reported) Entered as Reported by: Concha Gillespie on 06/08/222313 Multivitamin (Multi-Vitamin Daily) 1 Each Tablet, 1 EACH PO DAILY, (Reported) Entered as Reported by: SHADI HYDE on 08/12/22 113 Oxycodone HCl (Oxycodone HCl) 15 Mg Tablet, 15 MG PO QID PRN for PAIN-SEVERE (8- 10), (Reported) Entered as Reported by: Concha Gillespie on 8/13/22 2310 Pantoprazole Sodium (Pantoprazole Sodium) 40 Mg Tablet.dr, 40 MG PO DAILY, (Reported) Entered as Reported by: SHADI HYDE on 08/12/22 1131 Primidone (Mysoline) 50 Mg Tablet, 50 MG PO TID, (Reported) Entered as Reported by: SHADI HYDE on 08/12/22 1125 Timolol Maleate (Timoptic) 0.5 % Drops, 1 DROP OU TID, (Reported) Entered as Reported by: Concha Gillespie on 06/08/22 2314 Trazodone HCl (Trazodone HCl) 100 Mg Tablet, 100 MG PO HS, (Reported) Entered as Reported by: SHADI HYDE on 08/12/22 1124 Vitamin B Complex (Vitamin B Complex) 1 Each Tablet, 1 EACH PO DAILY, (Reported) Entered as Reported by: SHADI HYDE on 08/12/22 1141 Review of Systems Review of Systems Constitutional: see HPI, weakness EENTM: no symptoms reported Respiratory: no symptoms reported Cardiovascular: no symptoms reported Gastrointestinal: no symptoms reported Genitourinary: no symptoms reported Musculoskeletal: joint pain, joint swelling, muscle pain, muscle stiffness, muscle cramps Skin: no symptoms reported Psychiatric/Neurological: Anxiety All Other Systems Reviewed Negative Unless Noted: Yes Past Xrxxagr-Przmuq-Nbdaqg Hx Patient Social History Tobacco Use?: No Use of E-Cig and/or Vaping dev: No Substance use?: No Alcohol Use?: No Pt feels they are or have been: No Immunizations Up To Date First/Initial COVID19 Vaccinat: 2020 Second COVID19 Vaccination Leonardo: 2020 Third COVID19 Vaccination Date: 2020 Past Medical History Surgery/Hospitalization HX: Hypertension, Diabetes Mellitus, Neuropathy, DJD of spine SURGERY; GASTRIC BYPASS 2010 AND BILATERAL KNEE REPLACEMENT, C-spine surgery 02/05/23 L TIB, R [facility]UR Surgeries: Yes Abdominal, Joint Replacement Respiratory: No Cardiac: Yes Hypertension Neurological: No Neuropathy Gastrointestinal: No Musculoskeletal: Yes Arthritis, Chronic Back Pain Endocrine: Yes Diabetes, 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 oz. kg; 34.16 BMI Method: General Appearance: WD/WN, Anxious, Mild Distress Eyes: Bilateral Eye Normal Inspection HEENT: PERRL/EOMI Respiratory: Lungs Clear, Normal Breath Sounds, No Accessory Muscle Use, No Respiratory Distress Cardiovascular: Regular Rate, Rhythm, Normal Peripheral Pulses Gastrointestinal: Non Tender, Soft Extremity: Other (Left tib-fib in a splint/cast. Right femur also dressed.) Neurologic/Psychiatric: Alert, Oriented x3, No Motor/Sensory Deficits, Normal Mood/Affect Skin: Normal Color, Warm/Dry Progress/Results/Core Measures Suspected Sepsis SIRS Temperature: Pulse: 84 Respiratory Rate: 20 Blood Pressure 158 /89 Mean: 112 Results/Orders My Orders Orders - NYLA PEREZ MD Morphine Injection (Morphine Injection (02/21/23 10:07) Vital Signs/I&O 02/21/23 09:42 Temp 36.2 Pulse 84 Resp 20 B/P (MAP) 158/89 (112) Pulse Ox 97 O2 Delivery Room Air Capillary Refill : Blood Pressure Mean: 112 Progress Note : Time: 11:28 Progress Note I have reviewed medical records from [facility]. Have given the patient 10 mg of morphine IM which did alleviate his pain to a mild degree. Will add tramadol to his regimen. His nurse MARISSA Alfred is speaking with the rehab facility at this time to ensure that the patient has adequate pain management from this point forward. His vital signs are stable. He has no other emergent or urgent complaints. No indications for labs or repeat imaging. He has not had a fall since dismissal from [facility]. Patient is happy with the plan of care. All questions are sought and answered. Patient is stable for discharge. Departure Impression Primary Impression: Amplified musculoskeletal pain Disposition: 01 HOME, SELF-CARE Condition: Improved Departure-Patient Inst. Decision time for Depature: 11:29 Referrals: JU KRAMER APRN (PCP) Primary Care Physician [facility] (Family) Primary Care Physician Add. Discharge Instructions: Take your pain medications as needed/directed. Stool softeners daily. Elevate your legs to help reduce swelling. You can alternate dosing of the tramadol and oxycodone so you are getting something every 3 hours. The tramadol doses need to be 6 hours apart, the oxycodone doses need to be 6 hours apart. You can have 1 extra Tylenol with your oxycodone at each dose. If you develop a fever, shortness of breath, productive cough or any other emergent, concerning symptoms please return to the emergency department for reevaluation. Scripts Tramadol HCl (Tramadol HCl) 50 Mg Tablet 50 MG PO Q6H PRN for PAIN, #20 TAB 0 Refills Prov: NYLA PEREZ MD 02/21/23 Copy Copies To 1: SAMUEL OVIEDO KATHRYN M MD Feb 21, 2023 10:08
[2023-02-21] MEDS ORDERED: TRM50T PO (11:31)
[2023-02-21 11:53] VITALS: BP 147/78
== END 2023-02-21 13:11 | disposition home or self-care (01) ==
LOC: EDUNIT# 09:39 → ER 09:41
DX: M79.605 Pain in left leg (principal); M79.604 Pain in right leg; G89.29 Other chronic pain; M62.838 Other muscle spasm; Z79.1 Long term (current) use of non-steroidal anti-inflammatories (NSAID); Z79.899 Other long term (current) drug therapy; Z87.828 Personal history of other (healed) physical injury and trauma
CPT/HCPCS: 99284